=== PATIENT | female | born 1975 | race Caucasian/White ===

== ENCOUNTER 2018-02-26 11:07 | Inpatient (IN) | payer OTHER, SELFPAY ==
[2018-02-24 15:09] LABS: Hematocrit 34.3 % (37-47); Hemoglobin 10.5 g/dl (12.0-15.0); Mean Corp Hgb Conc 30.6 g/gl (32-36); Mean Corpuscular Hgb 22.4 pg (27.0-32.0); Mean Corpuscular Volume 73.1 fL (81-99); Mean Platelet Vol. 9.1 fl (6.2-12.0); Platelet Count 258 K/mm3 (150-450); RBC Distribution Width CV 16.4 % (11.6-14.6); RBC Distribution Width SD 44.1 fl (35.1-43.9); Red Blood Count 4.69 M/mm3 (4.2-5.4); White Blood Count 4.9 K/mm3 (4.4-11.0)
[2018-02-24 15:11] LABS: Scan Indicated on CBC? Y/N YES- FLAGS NOTED
[2018-02-26] VITALS (11 sets, daily range): BP systolic 118–141; BP diastolic 65–91; PULSE 60–78; RESP 16–18; TEMP 36.2–37.2; O2SAT 92–100; BMI 37.3
--- NOTE | 2018-02-26 | HYST_PTH ---
PATIENT: MANISH CRESPO LOC: MS2 U#:[id number] AGE/SX: 43/F ROOM: MS217 RE02/26/[address]: Dr. Priscila Patrick MD : [id number] BED: 1 DIS: 02/28/2018 SPEC #: [id number] RECD: 02/26/18 15:19 STATUS: HUBERT REBritton #: [id number] JANNY: 02/26/18 00:[address]: Priscila Patrick DEPT: SURGICAL PATHOLOGY RECD BY: Hayes Garcia ENTERED: 02/27/18 08:54 SP TYPE: HYSTERECT OTHR DR: MD Dr. Flavio Burk MD Tissues: Uterus, NOS Procedures: Surgery Specimen Level V HEADER OPERATION: Total abdominal hysterectomy PRE-OP DIAGNOSIS: Menorrhagia, uterine fibroids TISSUE SUBMITTED: Uterus MICROSCOPIC DIAGNOSIS Uterus, total abdominal hysterectomy: Cervix ? chronic cystic cervicitis and squamous metaplasia. See comment. Endometrium ? proliferative endometrium. Myometrium ? leiomyomas (3.2 cm in greatest dimension). SJ:rg 02/28/18 COMMENT A section of cervix also shows a lymphoid aggregate, favor benign. MICROSCOPIC DESCRIPTION Slides are reviewed. GROSS DESCRIPTION Received in fixative is one container labeled with the patient's name and designated uterus. The specimen consists of a uterus received in four fragments ranging in size from 2.5 cm to 8.5 cm and in aggregate weighing 215.6 gm. The detached cervix fragment measures 4.5 x 3.5 cm and is grossly unremarkable. The presumed endocervical canal measures 3.5 cm in length and is grossly unremarkable. The triangular endometrial cavity measures 4 x 4 cm. The velvety, light pink-davila endometrium measures up to 0.2 cm in thickness. The myometrium is distorted by multiple spherical rubbery nodules ranging in size from 0.8 to 3.2 cm in greatest dimension. The nodules are intramural and subserosal in location. The largest of these nodules are free in the container. [facility] sections are submitted as follows: 1 & 2 - cervix, 3-6 ? endometrium and adjacent myometrium, 7 ? largest myometrial nodule, 8 ? smaller myometrial nodules. / AM:caio 02/27/18 TC:1 CPT: 00046
[2018-02-26 11:34] LABS: Internal QC Validated? YES +Cl - CLEAR BKGD; Pregnancy, Urine Negative Negative
--- NOTE | 2018-02-26 15:22 | OP.PCM_ITS ---
Operative Report Date of Procedure: 02/26/18 PROCEDURE: Total abdominal hysterectomy Adhesiolysis Preoperative diagnosis: Excessive bleeding in premenopause, menorrhagia Chronic blood loss anemia Uterine leiomyomata Dense pelvic adhesions Postop diagnosis: Excessive bleeding in premenopause, menorrhagia Chronic blood loss anemia Uterine leiomyomata Dense pelvic adhesions Anesthesia: General anesthesia, Angelica Espinoza CRNA Surgeon: Priscila Patrick MD Supplier Quality Engineering Manager: DONALD Roa EBL 500 cc Complications: none Drains: Love draining clear yellow appearing urine 400 cc for case Fluids: replacement LR Findings: Dense adhesions noted within the layers of the anterior abdominal wall. There was a normal appearing uterus with dense adhesions of the posterior surface of the uterus to the posterior pelvis. The anterior uterus was adherent to the bladder. A serosal fibroid was noted at the anterior lower uterine segment. A simple cyst was noted at L ovary and drained at time of surgery, during adhesiolysis. The fallopian tubes bilaterally were thickened appearing, and adherent to bowel, omentum and were left in place. PATH: Uterus, and cervix. Sent as morcellated specimen. Narrative account: After the risks, benefits and alternatives of the procedure were reviewed with the patient, informed consent was obtained. The patient was taken to the Operating room with an IV running, and placed in dorsal supine position on the operating table. She was given general anesthesia and once asleep, briefly frog-legged for Love catheter placement and vaginal vault prep. She was then repositioned to dorsal supine position with a pillow under the knees and prepped and draped in the usual sterile fashion. A Pfannenstiel skin incision was created using the knife at the prior skin incision scar). The incision was carried down to the rectus fascia using the knife and Bovie cautery. The fascia was nicked in the midline. The fascial incision was extended bilaterally using curved Jones scissors. The superior aspect of the fascial incision was grasped with Valerie clamps and tented up and the underlying rectus abdominal muscles were dissected free. In a similar manner, the inferior aspect of the facial incision was grasped with Valerie clamps tented up and the underlying rectus abdominal muscles were dissected free. The rectus abdominis muscles were in the midline and the peritoneum was identified and entered by blunt dissection high in the incision. The peritoneal incision was extended superiorly and inferiorly with Metzenbaum scissors. The peritoneum and rectus abdominis muscles were stretched laterally. The Nassau retractor with medium side blades, bladder retractor and superior arm retractor were then inserted. The bowel was tucked back out of the field with moistened laparotomy sponges. The exposed portion of the uterine fundus was grasped with a single toothed tenaculum to allow manipulation of the uterus while adhesiolysis was initiated. Using the operators fingertips and sharp dissection the posterior surface of the uterus was dissected free of dense adhesions. The round ligaments were grasped, suture ligated and then divided by Bovie cautery. The adhesions between the anterior surface of the uterus and the bladder were then taken down by blunt and sharp dissection and the bladder was dissected down off of the cervix with a sponge stick. The L ovary was drained of clear fluid during adhesiolysis. The operators fingertips, blunt and sharp dissection were used to free the fallopian tube and ovary. A curved Esteban clamp was then used to grasp the left superior pedicle. This was divided, suture ligated and free tied with 1 Vicryl and tagged for later identification. Excellent hemostasis was noted. In a similar manner the R superior pedicle was grasped, divided, suture ligated and tagged for later identification. Sequential pedicles were then taken along the broad ligament at each side of the uterus, alternating between the right and the left sides to maintain hemostasis. Each pedicle along the broad ligament was sequentially grasped by curved or straight Esteban clamps, divided and suture ligated. Adequate hemostasis was noted as each pedicle was secured. The uterine arteries were clamped bilaterally and divided and suture ligated. At this point, for better visualization for continued dissection the uterine fundus and upper portion of the cervix were sequentially amputated using a knife with a malleable retractor placed at the posterior pelvis to protect the bowel during this step. The cervical stump was secured with a single toothed tenaculum. Pedicles were then taken at each side of the cervix while maintaining close approximation to the cervix. Each pedicle was secured, divided and suture ligated. The uterosacral ligaments were divided and tagged. Curved Z clamps were then placed inferior to the cervix at the upper vagina from each side. The cervix was then amputated with Dallas scissors. The cervix was set aside along with the rest of the specimen. Esteban stitches were placed at each of the vaginal angles. The remainder of the vaginal cuff was closed with a series of figure of eight and interrupted stitches of 1 Vicryl. Excellent hemostasis was noted. The surgical field was inspected. The ovaries and fallopian tubes were adherent to pelvic side wall and to bowel and omentum. Given the presence of the dense adhesions, the fallopian tubes were left in place to err on the side of safety. The pelvic and abdomen with copiously irrigated. and the field again inspected. Ruperto was sprayed over the vaginal cuff and superior pedicles for continued hemostasis. Excellent hemostasis was noted. The Nassau retraction and the moistened laparotomy sponges were removed The bowel and omentum were returned to their anatomic positions in the lower abdomen. Of note: evidence of prior bowel resection / repair was noted . The rectus abdominis muscles and peritoneum were reapproximated in the midline with vertical mattress stitches and figure of 8 stitches of 1 Vicryl. Ruperto was dusted over the anterior rectus bodies. The fascia was then closed with a running nonlocked stitch of Stratofix. Bovie cautery was used for hemostasis at the subcutaneous fatty tissue layer. 3-0 Vicryl was then used to reapproximate this layer and close space. The skin was then reapproximated with a subcuticular stitch of 4- 0 Monocryl in a running fashion. The skin incision was then cleansed and a sterile dressing of Cavilon, steristrips, and a Mepilex were applied. Sponge, instrument and needle counts were correct times two. The patient was then awakened from general anesthesia and transferred to the recovery room in stable condition after tolerating the procedure well. Excellent urine output was noted. Medications given preop and intraop included: Cefotetan 2 gm IV online marketing strategist to the OR and Toradol 30 mg IV times one. For a complete listing of medications given preop and intraop, please see the anesthesia record.
[2018-02-26] MEDS: Ketorolac 30 MG/ML Syringe IV ×2 (17:38→23:06)
[2018-02-26] MEDS: HYDROmorphone 1 MG/ML Syringe IV ×3 (17:38→23:45)
[2018-02-26] MEDS: Ondansetron 4 MG/2 ML Vial IV (18:20)
[2018-02-26] MEDS: Lactated Ringers 1,000 ML 125 ML IV (18:20)
[2018-02-26] MEDS: proMETHazine 25 MG/ML Syringe 12.5 MG IM (20:58)
[2018-02-26] MEDS: Labetalol 200 MG Tablet PO (21:25)
[2018-02-26] MEDS: Docusate Sodium 100 MG Capsule 200 MG PO (21:25)
[2018-02-26] MEDS: Acetaminophen 500 MG Tablet 1000 MG PO (21:26)
--- NOTE | 2018-02-26 23:29 | NURSING ---
2300 patient stool dangled legs and stood at bedside. A little dizzy and nauseated but tolerated well. This nurse assisted patient back to bed.
[2018-02-27] MEDS: Lactated Ringers 500 ML 425 ML IV (00:18)
[2018-02-27] MEDS: Lactated Ringers 1,000 ML 125 ML IV ×2 (02:08→05:34)
[2018-02-27 02:45] VITALS: BP 123/73; PULSE 77; RESP 16; TEMP 36.8; O2SAT 98
[2018-02-27] MEDS: Acetaminophen 500 MG Tablet 1000 MG PO ×3 (05:15→22:45)
[2018-02-27] MEDS: Ketorolac 30 MG/ML Syringe IV (05:15)
[2018-02-27 06:51] LABS: Hematocrit 28.6 % (37-47); Hemoglobin 8.6 g/dl (12.0-15.0); Mean Corp Hgb Conc 30.1 g/gl (32-36); Mean Corpuscular Hgb 22.2 pg (27.0-32.0); Mean Corpuscular Volume 73.9 fL (81-99); Mean Platelet Vol. 9.8 fl (6.2-12.0); Platelet Count 286 K/mm3 (150-450); RBC Distribution Width CV 16.2 % (11.6-14.6); RBC Distribution Width SD 42.6 fl (35.1-43.9); Red Blood Count 3.87 M/mm3 (4.2-5.4); White Blood Count 14.3 K/mm3 (4.4-11.0)
[2018-02-27 06:55] LABS: Scan Indicated on CBC? Y/N YES- FLAGS NOTED
[2018-02-27 07:02] LABS: Anion Gap 7 (5-15); BUN 12 mg/dL (7-18); BUN/Creat Ratio 12.6 RATIO (10-20); Chloride 106 mmol/L (98-107); Creatinine, Serum 0.95 mg/dL (0.55-1.02); EST Glomerular Filtration Rate 69 mL/min (>60); Est Glom Filt Rate - Afr Amer 83 mL/min (>60); Estimated Creatinine Clearance 61.64 ml/min; Glucose 109 mg/dL (74-106); Potassium 4.4 mmol/L (3.5-5.1); Sodium Level 138 mmol/L (136-145)
[2018-02-27 07:12] VITALS: O2SAT 96
[2018-02-27 07:47] LABS: Differential Comment SCANNED
--- NOTE | 2018-02-27 08:02 | PCM.PROGNOTE ---
Subjective: POD#1 KATHERINE, lysis of adhesions Doing well. Tolerating PO well- regular breakfast. Tolerated dangling at side of bed last pm. . Urine output picked up overnight and Love removed this am. Pain control adequate No concerns voiced. States some minimal vaginal bleeding and wonders if OK and where it's coming from. States not heavy at all, just noted some. - Physical Exam General: Alert, Oriented x3, Cooperative, No apparent distress HEENT: Atraumatic Neck: Supple Abdomen: Soft - Minimally tender c/w postop status Skin: Incision - Mepilex CDI. No shadow drainage noted. Neurological: Cranial nerves II-XII grossly intact Psych/Mental Status: Normal Affect Vital Signs Temp Pulse Resp BP Pulse Ox 98.3 F 77 16 123/73 H 98 02/27/18 02:45 02/27/18 02:45 02/27/18 02:45 02/27/18 02:45 02/27/18 02:45 Oxygen Flow Rate (L/min) 2 Oxygen Delivery Method Nasal Cannula Weight: 92.6 kg Body Mass Index (BMI) 37.3 Intake and Output for Last 24 Hours 18 02/26/18 02/27/18 23:59 23:59 23:59 Intake Total 3696 / 3696 1627 / 1627 Output Total 750 / 750 1325 / 1325 Balance 2946 / 2946 302 / 302 Laboratory Tests Past 24 Hrs 02/26/18 02/27/18 02/27/18 11:20 06:20 06:20 WBC 14.3 H RBC 3.87 L Hgb 8.6 L Hct 28.6 L MCV 73.9 L MCH 22.2 L MCHC 30.1 L RDW 16.2 H RDW Differential 42.6 Plt Count 286 MPV 9.8 Differential Comment SCANNED Sodium 138 Potassium 4.4 Chloride 106 Carbon Dioxide 25.0 Anion Gap 7 BUN 12 Creatinine 0.95 Estim Creat Clear Calc 61.64 Est GFR (MDRD) Af Amer 83 Est GFR (MDRD) Non-Af 69 BUN/Creatinine Ratio 12.6 Glucose 109 H Calcium 8.0 L Urine Test Negative Medical Necessity - Tobacco Use Smoking Status: Never smoker Assessment/Plan POD#1 KATHERINE, Fibroid uterus, Menorrhagia/excessive bleeding in premenopause. Stable postop. AVSS CBC as anticipated with chronic blood loss prior to surgery and now superimposed acute blood loss at surgery. Inc diet and activity as tolerated. S/L IV for continued Toradol today. May shower. Begin po meds. Continue care.
[2018-02-27] MEDS: Docusate Sodium 100 MG Capsule 200 MG PO ×2 (08:07→22:45)
--- NOTE | 2018-02-27 08:07 | PCM.DC.AHY ---
Discharge Diet: No Restrictions Discharge Activity: May not drive while taking narcotic pain medications., May Shower, May Take a Tub Bath Return to work on:: 04/14/18 May resume sexual activity in: 4-6 weeks Change Dressing in (Days):: 14 - Remove Mepilex after 3-4 d, OK to leave steristrips in place or remove also. Remove Dressing in (days):: 14 Cleanse incision/area with: Soap & Water, Normal Saline Allergies/Adverse Reactions: Allergies No Known Allergies Allergy (Verified 02/19/18 11:12) Medications to take at Discharge Labetalol [Trandate (Beta Barby)] 200 mg PO BID 08/24/16 Acetaminophen [Tylenol] 1,000 mg PO Q8 tablet 02/27/18 Docusate Sodium [Colace] 200 mg PO BID #30 cap 02/27/18 Ferrous Sulfate 325 mg PO DAILY@0800 #30 tab 02/27/18 Naproxen [Naprosyn] 250 - 500 mg PO Q8H PRN PRN #30 tab 02/27/18 Oxycodone [Oxyir] 5 - 10 mg PO Q4H PRN PRN 7 Days #28 tablet 02/27/18 Polyethylene Glycol 3350 [Miralax] 17 gm PO DAILY #30 packet 02/27/18 The following prescriptions were given: Oxycodone [Oxyir] 5 - 10 mg PO Q4H PRN PRN 7 Days #28 tablet PRN Reason: Severe Pain (-07/30) Naproxen [Naprosyn] 250 - 500 mg PO Q8H PRN PRN #30 tab PRN Reason: Mild Pain Ferrous Sulfate 325 mg PO DAILY@0800 #30 tab Polyethylene Glycol 3350 [Miralax] 17 gm PO DAILY #30 packet Docusate Sodium [Colace] 200 mg PO BID #30 cap Primary Care Physician: Flavio Hudson MD [Primary Care Provider] - Please Follow Up With: Priscila Patrick MD - [phone] When: in 2 weeks, please call to make an appointment. Proposed Discharge Date: 02/28/18
[2018-02-27] MEDS: oxyCODONE 5 MG Tablet PO ×3 (08:19→20:01)
[2018-02-27 08:26] VITALS: RESP 16
[2018-02-27 10:00] VITALS: BP 129/76; PULSE 86; RESP 16; TEMP 37.4; O2SAT 98
[2018-02-27] MEDS: Polyethylene Glycol 3350 17 GM PACKET PO (10:15)
[2018-02-27] MEDS: Labetalol 200 MG Tablet PO ×2 (10:16→22:45)
[2018-02-27] MEDS: Enoxaparin 40 MG/0.4 ML Syringe SC (11:45)
[2018-02-27] MEDS: Naproxen 250 MG Tablet PO ×2 (11:45→20:02)
[2018-02-27 14:32] VITALS: BP 113/59; PULSE 83; RESP 16; TEMP 36.7; O2SAT 96
[2018-02-27 20:00] VITALS: BP 109/62; PULSE 96; RESP 16; TEMP 36.8; O2SAT 99
[2018-02-28] MEDS: oxyCODONE 5 MG Tablet PO (00:27)
[2018-02-28] MEDS: Acetaminophen 500 MG Tablet 1000 MG PO (05:45)
[2018-02-28] MEDS: Naproxen 250 MG Tablet PO (05:45)
[2018-02-28 05:50] VITALS: BP 145/59; PULSE 82; RESP 16; TEMP 36.6; O2SAT 95
--- NOTE | 2018-02-28 07:22 | PCM.PROGNOTE ---
Subjective: POD#2 KATHERINE, lysis of adhesions. Doing well. Pain control adequate. No concerns voiced. Ready to go home today. - Physical Exam General: Alert, Oriented x3, Cooperative, No apparent distress HEENT: Atraumatic Neck: Supple Abdomen: Soft - minimally tender c/w postop status. Skin: Incision - Mepilex CDI. No shadow drainage. no evidence of skin rxn to dressing. Neurological: Cranial nerves II-XII grossly intact Psych/Mental Status: Normal Affect Vital Signs Temp Pulse Resp BP Pulse Ox 98 F 82 16 145/59 H 95 02/28/18 05:50 02/28/18 05:50 02/28/18 05:50 02/28/18 05:50 02/28/18 05:50 Oxygen Flow Rate (L/min) 2 Oxygen Delivery Method Room Air Weight: 92.6 kg Body Mass Index (BMI) 37.3 Intake and Output for Last 24 Hours 02/26/18 02/27/18 02/28/18 23:59 23:59 23:59 Intake Total 3696 / 3696 1627 / 1627 700 / 700 Output Total 750 / 750 1325 / 1325 Balance 2946 / 2946 302 / 302 700 / 700 Laboratory Tests Past 24 Hrs 02/27/18 06:20 Differential Comment SCANNED Medical Necessity - Tobacco Use Smoking Status: Never smoker Assessment/Plan POD#2 KATHERINE, Fibroid uterus, Menorrhagia/excessive bleeding in premenopause. Stable postop. D/C home today RTO in 2 wk for postop check,
[2018-02-28 07:46] VITALS: O2SAT 95
[2018-02-28 09:05] VITALS: BP 125/71; PULSE 84; RESP 16; TEMP 36.7; O2SAT 98
--- NOTE | 2018-03-03 07:38 | PCM.DC.SUM ---
Discharge Date and Diagnosis Date of Admission: 02/26/18 Date of Discharge: 02/28/18 - S/P KATHERINE, lysis adhesions Hospital Course and Treatment Operations: hysterectomy - KATHERINE, lysis of adhesions Summary of Care Provided: The patient is a 43 year old female with known uterine fibroids, chronic blood loss anemia and menorrhagia. h/o C section deliveries and myomectomies, with known pelvic adhesive disease. Presents for KATHERINE and lysis of adhesions. Procedure performed on 02/26/18. Uncomplicated. Postop course complicated by oliguria, but with good response to fluid bolus. Remainer of postop recovery course was uneventful. Discharged home on POD#2 to follow in office in two weeks as planned for postop appointment. Discharge Diet: No Restrictions Discharge Activity: May not drive while taking narcotic pain medications., May Shower, May Take a Tub Bath Return to work on:: 04/14/18 May resume sexual activity in: 4-6 weeks Change Dressing in (Days):: 14 - Remove Mepilex after 3-4 d, OK to leave steristrips in place or remove also. Remove Dressing in (days):: 14 Cleanse incision/area with: Soap & Water, Normal Saline Home Medications: Medications to take at Discharge Labetalol [Trandate (Beta Barby)] 200 mg PO BID 08/24/16 Acetaminophen [Tylenol] 1,000 mg PO Q8 tablet 02/27/18 Docusate Sodium [Colace] 200 mg PO BID #30 cap 02/27/18 Ferrous Sulfate 325 mg PO DAILY@0800 #30 tab 02/27/18 Naproxen [Naprosyn] 250 - 500 mg PO Q8H PRN PRN #30 tab 02/27/18 Oxycodone [Oxyir] 5 - 10 mg PO Q4H PRN PRN 7 Days #28 tablet 02/27/18 Polyethylene Glycol 3350 [Miralax] 17 gm PO DAILY #30 packet 02/27/18 Following Prescrptions Were Given to Patient: Oxycodone [Oxyir] 5 - 10 mg PO Q4H PRN PRN 7 Days #28 tablet PRN Reason: Severe Pain (6-07/30) Naproxen [Naprosyn] 250 - 500 mg PO Q8H PRN PRN #30 tab PRN Reason: Mild Pain Ferrous Sulfate 325 mg PO DAILY@0800 #30 tab Polyethylene Glycol 3350 [Miralax] 17 gm PO DAILY #30 packet Docusate Sodium [Colace] 200 mg PO BID #30 cap Primary Care Physician: Flavio Hudson MD [Primary Care Provider] - Please Follow Up With: Priscila Patrick MD - [phone] When: in 2 weeks, please call to make an appointment. Medical Necessity - Tobacco Use Smoking Status: Never smoker Meaningful Use Info Meaningful Use Diagnoses (Choose all that apply): None applicable
== END 2018-02-28 10:43 | disposition home or self-care (01) | DRG 743 ==
PROVIDERS: Admitting Provider Obstetrics & Gynecology; Family Provider Family Medicine; PCP Family Medicine; Visit Provider Obstetrics & Gynecology
PROC: 0UT90ZZ Resection of Uterus, Open Approach (ICD-10-PCS; principal; 2018-02-26 12:10)
DX: N92.4 Excessive bleeding in the premenopausal period (principal); N73.6 Female pelvic peritoneal adhesions (postinfective); D50.0 Iron deficiency anemia secondary to blood loss (chronic); D25.9 Leiomyoma of uterus, unspecified; N83.202 Unspecified ovarian cyst, left side
CPT/HCPCS: 36415; 80048; 81025; 85027; 86850; 86900; 88307; J7120; J2405

== ENCOUNTER → 2018-03-12 11:48 | Outpatient (CLI) | payer OTHER, SELFPAY | PROVIDERS: Family Provider Family Medicine; PCP Family Medicine; Visit Provider Obstetrics & Gynecology | DX: R30.0 Dysuria (principal) | CPT/HCPCS: 87086; 87088 ==

== ENCOUNTER → 2019-05-02 08:54 | Outpatient (CLI) | payer OTHER, SELFPAY ==
--- NOTE | 2019-05-02 08:58 | BI_ITS ---
MAMMOGRAPHY - BILATERAL SCREENING REASON FOR EXAM: Female, 44 years old. Routine annual screening examination. PERTINENT HISTORY: Mother with breast cancer. TECHNIQUE: Digital bilateral breast bereket (3D mammographic acquisition) in the CC and MLO projections. 2-D mediolateral oblique (MLO) and craniocaudad (CC) views of both breasts were obtained. CAD: Full Field Digital Mammography with Computer Added Detection was performed. COMPARISON: Comparison is made with prior study dated November 12, 2017 and February 26, 2014. FINDINGS: Breast Composition: The breasts are heterogeneously dense, which may obscure small masses. There are no dominant masses or suspicious calcifications. No other significant abnormalities are identified. There has been no significant change since the prior study. BI/SCREEN MAMM (CAD) W/BEREKET BILAT IMPRESSION: Stable bilateral screening mammogram. Yearly follow-up mammogram recommended. (A) ASSESSMENT CATEGORY: BIRADS Category 1: Negative. A letter regarding these results will be sent to the patient by the facility within 30 days. Approximately 10% of breast cancers are not detected by mammography. A normal mammogram should not delay biopsy of a clinically suspicious abnormality. [id number] Electronically Signed: Fred Cornelius, at 8:46 EDT , Service support ,
== END ==
PROVIDERS: Family Provider Family Medicine; PCP Family Medicine; Referring Provider Obstetrics & Gynecology; Visit Provider Obstetrics & Gynecology
DX: Z12.31 Encounter for screening mammogram for malignant neoplasm of breast (principal)
CPT/HCPCS: 77063; 77067

== ENCOUNTER → 2019-09-28 12:15 | Outpatient (CLI) | payer OTHER, SELFPAY ==
[2018-02-26 16:44] VITALS: BMI 37.3
[2019-09-28 14:12] LABS: Anion Gap 6 (5-15); BUN 12 mg/dL (7-18); BUN/Creat Ratio 12.7 RATIO (10-20); Calcium,Total 9.2 mg/dL (8.5-10.1); Chloride 107 mmol/L (98-107); Cholesterol 186 mg/dL (200); Creatinine, Serum 0.95 mg/dL (0.55-1.02); EST Glomerular Filtration Rate 69 mL/min (>60); Est Glom Filt Rate - Afr Amer 83 mL/min (>60); Glucose 84 mg/dL (74-106); High Density Lipoprotein 50 mg/dL; Sodium Level 139 mmol/L (136-145); Triglycerides 165 mg/dL; Very Low Density Lipoprotein 33 mg/dL (5-40)
== END ==
PROVIDERS: Nurse Practitioner Family; Family Provider Family Medicine; PCP Family Medicine; Visit Provider Family Medicine
DX: Z00.00 Encounter for general adult medical examination without abnormal findings (principal); V70.0XXA Driver of bus injured in collision with pedestrian or animal in nontraffic accident, initial encounter
CPT/HCPCS: 36415; 80048; 80061; 83036

== ENCOUNTER → 2020-05-03 12:50 | Outpatient (CLI) | payer OTHER, SELFPAY ==
--- NOTE | 2020-05-03 12:52 | BI_ITS ---
MAMMOGRAPHY - BILATERAL SCREENING REASON FOR EXAM: Female, 45 years old. Routine annual screening examination. PERTINENT HISTORY: Mother with breast cancer. TECHNIQUE: Digital bilateral breast bereket (3D mammographic acquisition) in the CC and MLO projections. 2-D mediolateral oblique (MLO) and craniocaudad (CC) views of both breasts were obtained. CAD: Full Field Digital Mammography with Computer Added Detection was performed. COMPARISON: Comparison is made with prior examination dated May 02, 2019 and November 12, 2017. FINDINGS: Breast Composition: The breasts are heterogeneously dense, which may obscure small masses. There are no dominant masses or suspicious calcifications. Stable small benign appearing bilateral axillary lymph nodes. No other significant abnormalities are identified. There has been no significant change since the prior study. BI/SCREEN MAMM (CAD) W/BEREKET BILAT IMPRESSION: Stable bilateral screening mammogram. Yearly follow-up mammogram recommended. (A) ASSESSMENT CATEGORY: BIRADS Category 2: Benign. A letter regarding these results will be sent to the patient by the facility within 30 days. Approximately 10% of breast cancers are not detected by mammography. A normal mammogram should not delay biopsy of a clinically suspicious abnormality. [id number] Electronically Signed: Fred Cornelius, at 13:46 EDT , Service support ,
== END ==
PROVIDERS: PCP Family Medicine; Referring Provider Obstetrics & Gynecology; Visit Provider Obstetrics & Gynecology
DX: Z12.31 Encounter for screening mammogram for malignant neoplasm of breast (principal)
CPT/HCPCS: 77063; 77067

== ENCOUNTER → 2020-06-28 09:13 | Outpatient (CLI) | payer OTHER, SELFPAY ==
[2018-02-26 16:44] VITALS: BMI 37.3
[2020-06-28 10:27] LABS: Anion Gap 4 (5-15); BUN 20 mg/dL (7-18); BUN/Creat Ratio 20.6 RATIO (10-20); Chloride 107 mmol/L (98-107); Creatinine, Serum 0.97 mg/dL (0.55-1.02); EST Glomerular Filtration Rate 67 mL/min (>60); Est Glom Filt Rate - Afr Amer 80 mL/min (>60); Glucose 88 mg/dL (74-106); Potassium 4.6 mmol/L (3.5-5.1); Sodium Level 139 mmol/L (136-145)
== END ==
PROVIDERS: PCP Family Medicine; Referring Provider Family Medicine; Visit Provider Family Medicine
DX: I10 Essential (primary) hypertension (principal)
CPT/HCPCS: 36415; 80048

== ENCOUNTER → 2021-01-30 09:37 | Outpatient (CLI) | payer OTHER, SELFPAY ==
[2018-02-26 16:44] VITALS: BMI 37.3
[2021-01-30 10:06] LABS: Hematocrit 44.5 % (37-47); Hemoglobin 13.8 g/dL (12.0-15.0)
[2021-01-30 10:31] LABS: Microalbumin,Random Urine 11.7 mg/L (NO RANGE EST.)
[2021-01-30 17:12] LABS: ALB/GLOB Ratio 0.9 RATIO (0.9-2.4); AST(SGOT) 17 U/L (15-37); Alanine Aminotransfer ALT/SGPT 26 U/L (13-56); Albumin, Serum 3.7 g/dL (3.2-5.0); Alkaline Phosphatase 69 U/L (45-117); Anion Gap 3 (5-15); BUN 12 mg/dL (7-18); Calcium,Total 9.4 mg/dL (8.5-10.1); Chloride 106 mmol/L (98-107); Cholesterol 239 mg/dL (200); Creatinine, Serum 0.92 mg/dL (0.55-1.02); EST Glomerular Filtration Rate 70 mL/min (>60); Est Glom Filt Rate - Afr Amer 85 mL/min (>60); Ferritin 90 ng/mL (8-252); Follicle Stimulating Hormone 5.2 mIU/mL; Glucose 91 mg/dL (74-106); High Density Lipoprotein 54 mg/dL; Luteinizing Hormone 1.5 mIU/mL; Potassium 3.7 mmol/L (3.5-5.1); Protein, Total 7.7 g/dL (6.4-8.2); Sodium Level 139 mmol/L (136-145); Triglycerides 141 mg/dL; Very Low Density Lipoprotein 28 mg/dL (5-40)
[2021-01-31 09:13] LABS: Hepatitis C Antibody Non-Reactive (Nonreactive)
== END ==
PROVIDERS: PCP Family Medicine; Visit Provider Family Medicine
DX: I10 Essential (primary) hypertension (principal); D50.9 Iron deficiency anemia, unspecified; N95.1 Menopausal and female climacteric states; Z11.59 Encounter for screening for other viral diseases
CPT/HCPCS: 36415; 80053; 80061; 82043; 82728; 83001; 83002; 85014; 85018; 86803

== ENCOUNTER → 2021-05-05 06:58 | Outpatient (CLI) | payer OTHER, SELFPAY ==
--- NOTE | 2021-05-05 07:00 | BI_ITS ---
MAMMOGRAPHY - BILATERAL SCREENING REASON FOR EXAM: Female, 46 years old. Routine annual screening examination. PERTINENT HISTORY: Mother with breast cancer. TECHNIQUE: Digital bilateral breast bereket (3D mammographic acquisition) in the CC and MLO projections. 2-D mediolateral oblique (MLO) and craniocaudad (CC) views of both breasts were obtained. CAD: Full Field Digital Mammography with Computer Added Detection was performed. COMPARISON: Comparison is made with prior study dated 05/03/2020 and 05/02/2019. FINDINGS: Breast Composition: The breasts are heterogeneously dense, which may obscure small masses. There are no dominant masses or suspicious calcifications. Stable small benign-appearing bilateral axillary lymph nodes. No other significant abnormalities are identified. There has been no significant change since the prior study. BI/SCRN MAMM (CAD)W/BEREKET BILAT IMPRESSION: Stable bilateral screening mammogram. Yearly follow-up mammogram recommended. (A) ASSESSMENT CATEGORY: BIRADS Category 2: Benign. A letter regarding these results will be sent to the patient by the facility within 30 days. Approximately 10% of breast cancers are not detected by mammography. A normal mammogram should not delay biopsy of a clinically suspicious abnormality. [id number] Electronically Signed: Fred Cornelius MD at 8:17 EDT , Service support ,
== END ==
PROVIDERS: PCP Family Medicine; Referring Provider Student in an Organized Health Care Education/Training Program; Visit Provider Student in an Organized Health Care Education/Training Program
DX: Z12.31 Encounter for screening mammogram for malignant neoplasm of breast (principal)
CPT/HCPCS: 77063; 77067

== ENCOUNTER → 2022-02-19 | Outpatient (CLI) | payer OTHER, SELFPAY ==
[2022-02-19 12:45] LABS: Microalbumin,Random Urine 22.1 mg/L (NO RANGE EST.); Microalbumin:Creatinine Ratio 10.3 mg/g CRE (<30 mg/g CRE)
[2022-02-19 13:01] LABS: Anion Gap 6 (5-15); BUN 16 mg/dL (7-18); BUN/Creat Ratio 16.9 RATIO (10-20); Calcium,Total 9.5 mg/dL (8.5-10.1); Chloride 107 mmol/L (98-107); Cholesterol 253 mg/dL (200); Creatinine, Serum 0.95 mg/dL (0.55-1.02); EST Glomerular Filtration Rate 68 mL/min (>60); Est Glom Filt Rate - Afr Amer 82 mL/min (>60); Glucose 93 mg/dL (74-106); High Density Lipoprotein 49 mg/dL; Potassium 4.5 mmol/L (3.5-5.1); Sodium Level 138 mmol/L (136-145); Triglycerides 162 mg/dL; Very Low Density Lipoprotein 32 mg/dL (5-40)
== END | disposition home or self-care (01) ==
LOC: MFPLAB 09:46
PROVIDERS: PCP Family Medicine; Visit Provider Family Medicine
DX: I10 Essential (primary) hypertension (principal)
CPT/HCPCS: 36415; 80048; 80061; 82043; 82570

== ENCOUNTER → 2022-05-07 | Outpatient (CLI) | payer OTHER, SELFPAY ==
--- NOTE | 2022-05-07 10:40 | BI_ITS ---
MAMMOGRAPHY - BILATERAL SCREENING REASON FOR EXAM: Female, 47 years old. Routine annual screening examination. PERTINENT HISTORY: Mother with breast cancer. TECHNIQUE: Digital bilateral breast bereket (3D mammographic acquisition) in the CC and MLO projections. 2-D mediolateral oblique (MLO) and craniocaudad (CC) views of both breasts were obtained. CAD: Full Field Digital Mammography with Computer Added Detection was performed. COMPARISON: Comparison is made with prior study dated 05/05/2021 and 05/03/2020. FINDINGS: Breast Composition: The breasts are heterogeneously dense, which may obscure small masses. There are no dominant masses or suspicious calcifications. Stable small benign appearing bilateral axillary lymph nodes. No other significant abnormalities are identified. There has been no significant change since the prior study. BI/SCRN MAMM (CAD)W/BEREKET BILAT IMPRESSION: Stable bilateral screening mammogram. Yearly follow-up mammogram recommended. (A) ASSESSMENT CATEGORY: BIRADS Category 2: Benign. A letter regarding these results will be sent to the patient by the facility within 30 days. Approximately 10% of breast cancers are not detected by mammography. A normal mammogram should not delay biopsy of a clinically suspicious abnormality. [id number] Electronically Signed: Fred Cornelius MD at 12:11 EDT ,
== END | disposition home or self-care (01) ==
LOC: OPBI 10:38
PROVIDERS: PCP Family Medicine; Visit Provider Student in an Organized Health Care Education/Training Program
DX: Z12.31 Encounter for screening mammogram for malignant neoplasm of breast (principal)
CPT/HCPCS: 77063; 77067

== ENCOUNTER → 2022-09-10 | Outpatient (CLI) | payer OTHER, SELFPAY ==
[2022-09-10 15:28] LABS: AST(SGOT) 18 U/L (15-37); Alanine Aminotransfer ALT/SGPT 36 U/L (13-56); Albumin, Serum 3.8 g/dL (3.2-5.0); Alkaline Phosphatase 68 U/L (45-117); Anion Gap 8 (5-15); BUN 16 mg/dL (7-18); CRP, High Sensitivity Cardiac 5.02 mg/L; Calcium,Total 9.3 mg/dL (8.5-10.1); Chloride 104 mmol/L (98-107); Cholesterol 237 mg/dL (200); Creatinine, Serum 0.84 mg/dL (0.55-1.02); EST Glomerular Filtration Rate 78 mL/min (>60); Est Glom Filt Rate - Afr Amer 94 mL/min (>60); Globulin 3.7 g/dL (2.2-4.2); Glucose 80 mg/dL (74-106); High Density Lipoprotein 52 mg/dL; Potassium 4.1 mmol/L (3.5-5.1); Protein, Total 7.5 g/dL (6.4-8.2); Sodium Level 138 mmol/L (136-145); Triglycerides 181 mg/dL; Very Low Density Lipoprotein 36 mg/dL (5-40)
== END | disposition home or self-care (01) ==
LOC: MFPLAB 11:16
PROVIDERS: PCP Family Medicine; Visit Provider Family Medicine
DX: E78.00 Pure hypercholesterolemia, unspecified (principal); I10 Essential (primary) hypertension
CPT/HCPCS: 36415; 80053; 80061; 86141

== ENCOUNTER → 2023-01-08 | Outpatient (CLI) | payer OTHER, SELFPAY ==
[2023-01-08 12:57] LABS: AST(SGOT) 15 U/L (15-37); Alanine Aminotransfer ALT/SGPT 29 U/L (13-56); Albumin, Serum 3.8 g/dL (3.2-5.0); Alkaline Phosphatase 67 U/L (45-117); Anion Gap 6 (5-15); BUN 19 mg/dL (7-18); BUN/Creat Ratio 18.4 RATIO (10-20); Calcium,Total 9.7 mg/dL (8.5-10.1); Chloride 105 mmol/L (98-107); Creatinine, Serum 1.03 mg/dL (0.55-1.02); EST Glomerular Filtration Rate 61 mL/min (>60); Est Glom Filt Rate - Afr Amer 74 mL/min (>60); Globulin 3.7 g/dL (2.2-4.2); Glucose 103 mg/dL (74-106); Potassium 4.1 mmol/L (3.5-5.1); Protein, Total 7.5 g/dL (6.4-8.2); Sodium Level 139 mmol/L (136-145)
[2023-01-08 13:00] LABS: Color, Urine Yellow (Yellow); Glucose, Dipstick Normal (Normal); Ketone-Dipstick 5 mg/dl (Negative); Leukocyte Esterase-Dipstick 25 /ul (Negative); Nitrite-Dipstick Negative (Negative); Occult Blood-Urine 250 /ul (Negative); Protein-Dipstick 15 mg/dl (Negative); Specific Gravity, Urine 1.025 (1.002-1.030); Urine Bilirubin Dipstick Negative (Negative); Urine Clarity Clear (Clear); Urine Urobilinogen Normal (Normal)
[2023-01-08 13:18] LABS: Bacteria 1+ /hpf (None Seen); Mucous, Urine 2+ /hpf (<or=2+); Red Blood Cells-Urine 10-25 SEEN /hpf (0-5); Squamous Epithelial Cells - UA 5-10 SEEN /hpf (5-10); White Blood Cells 10-25 SEEN /hpf (0-5)
== END | disposition home or self-care (01) ==
LOC: MTLAB 10:16
PROVIDERS: PCP Family Medicine; Referring Provider Family Medicine; Visit Provider Family Medicine
DX: N20.0 Calculus of kidney (principal)
CPT/HCPCS: 36415; 80053; 81001

== ENCOUNTER → 2023-01-15 | Outpatient (CLI) | payer OTHER, SELFPAY ==
--- NOTE | 2023-01-15 07:17 | CT_ITS ---
STUDY: CT ABDOMEN AND PELVIS WITHOUT CONTRAST REASON FOR EXAM: Female, 48 years old. RIGHT FLANK PAIN. One episode of hematuria. RADIATION DOSAGE (If Supplied By Facility): CTDIvol = ( 18.10 ) mGy, DLP = ( 886.34 ) mGycm TECHNIQUE: Transaxial images were obtained from the dome of the diaphragm to the symphysis pubis without oral contrast, and without intravenous contrast. Sagittal and coronal images were reconstructed. Individualized dose optimization techniques were used for this CT. COMPARISON: None. FINDINGS: 2 mm calcified granuloma in the posterior aspect of the right middle lobe. The visualized portions of the heart are within normal limits. There is decreased attenuation of the liver consistent with steatosis. There is a 3.8 cm x 3.5 cm x 3.8 cm focal area of heterogeneous attenuation in the lateral inferior aspect of the left lobe of the liver adjacent to the gallbladder fossa. A repeat CT scan following IV contrast is recommended for further evaluation. Normal gallbladder and extrahepatic biliary system. Normal spleen. Normal pancreas. Normal bilateral adrenal glands. There is a 1.8 cm cyst in the posterior midportion of the right kidney. Mild degree of right hydronephrosis due to a 5.2 mm x 7.6 mm calculus in the proximal portion of the right ureter just distal to the ureteropelvic junction. Left parapelvic cysts. Normal visualized stomach. Normal small intestine. Normal colon. The appendix is visualized and appears normal. Normal abdominal aorta. Normal inferior vena cava. Normal retroperitoneum. Normal urinary bladder. There is absence of the uterus consistent with a prior hysterectomy. Follicles are seen in both ovaries. A dominant follicle is seen in the right ovary measuring 2.3 cm. Normal abdominal wall. Degenerative changes of the sacroiliac joints. Spina bifida occulta at the L5 level. CT/Abdomen/Pelvis without Cont IMPRESSION: 5.2 mm x 7.6 mm calculus in the proximal portion of the right ureter just distal to the ureteropelvic junction causing mild right hydronephrosis. Focal area of heterogeneous attenuation lateral aspect of the left lobe of the liver adjacent to the gallbladder fossa. A repeat CT scan with IV contrast is recommended. Right renal cyst. Left parapelvic cysts. Electronically Signed: Fred Cornelius MD at 8:36 EDT ,
== END | disposition home or self-care (01) ==
LOC: CT 07:16
PROVIDERS: PCP Family Medicine; Visit Provider Family Medicine
DX: N13.2 Hydronephrosis with renal and ureteral calculous obstruction (principal)
CPT/HCPCS: 74176

== ENCOUNTER → 2023-01-21 | Outpatient (CLI) | payer OTHER, SELFPAY ==
--- NOTE | 2023-01-21 09:05 | RAD_ITS ---
STUDY: X-RAY - ABDOMEN/PELVIS REASON FOR EXAM: Female, 48 years old. KUB- history of right-sided URETERAL STONE TECHNIQUE: Two AP supine views of the abdomen and pelvis. COMPARISON: None. FINDINGS: Elevation of the right hemidiaphragm. There is a moderate amount of colonic fecal material. There is evidence of a 5.6 mm calculus in the mid abdomen at the level of the L2-L3 disc space level on the right side. Normal soft tissue structures. Normal visualized osseous structures. RAD/Abdomen Single View IMPRESSION: 5.6 mm calculus is seen in the mid abdomen at the level of the L2-L3 disc space level on the right side. Electronically Signed: Fred Cornelius MD at 13:54 EDT ,
== END | disposition home or self-care (01) ==
LOC: MTRAD 09:03
PROVIDERS: PCP Family Medicine; Referring Provider Urology; Visit Provider Urology
DX: N20.1 Calculus of ureter (principal)
CPT/HCPCS: 74018

== ENCOUNTER 2023-01-29 06:00 | Day surgery (SDC) | payer OTHER, SELFPAY ==
[2023-01-29 06:43] VITALS: BP 137/82; PULSE 60; RESP 16; TEMP 36.3; O2SAT 97; BMI 38.7
[2023-01-29] MEDS: Lactated Ringers 1,000 ML 15 ML IV (06:50)
[2023-01-29] MEDS: Cefazolin 2 GM in 0.9% Normal Saline 100 ML IV (07:42)
--- NOTE | 2023-01-29 07:55 | EX.PCM.DISCH ---
Discharge Instructions Diet Discharge Diet: No restrictions Activity Discharge Activity: Return to Normal Activity May resume sexual activity in: No Restrictions Dressing / Incision Call your doctor if you observe: Fever of 101 or Higher, Inability to urinate and Inability to have a bowel movement Follow Up Care Please Follow Up With: Nirmala Barrios MD When: call office for appt Test Results: Test results from this visit will be discussed in further detail at your follow-up appointment, if applicable. Discharge Plan Admission Attending Provider: Nirmala Barrios Primary Care Provider: Flavio Hudson Discharge Orders/Prescriptions Prescriptions: New oxycodone-acetaminophen [Percocet] 5-325 mg tablet 1 tab PO Q8H PRN (Reason: pain) 5 Days Qty: 20 0RF cephalexin [cephalexin] 500 mg capsule 500 mg PO Q12 3 Days Qty: 6 0RF Continued naproxen 250 MG tablet 250 - 500 mg PO Q8H PRN PRN (Reason: Mild Pain) Qty: 30 0RF acetaminophen 500 MG tablet 1,000 mg PO Q8 0RF oxycodone 5 MG tablet 5 - 10 mg PO Q4H PRN PRN (Reason: Severe Pain (6-1010)) 7 Days Qty: 28 0RF bisoprolol fumarate 5 mg tablet 5 mg PO QHS ramipril 1.25 mg capsule 1.25 mg PO DAILY Referrals / Follow Up: Flavio Hudson MD [Primary Care Provider] - Disposition Disposition (needs filled in before D/C Order can be placed): Home, Self Care
--- NOTE | 2023-01-29 08:03 | PCM.OPRPT ---
Report of Operation Date of Procedure: 01/29/23 Pre-Operative Diagnosis: right ureteral calculus Post-Operative Diagnosis: same Surgery/Procedure Performed:: right proximal ureteral calculus extracorporeal shockwave lithotripsy Surgeon: Nirmala Barrios Type of Anesthesia: General Specimen's removed: none Description of Procedure: The patient is a 48-year-old female with a proximal right ureteral calculus and pain. Informed consent has been obtained. She was taken to the operating room and placed in a supine position on the lithotripsy table. Anesthesia monitored the head, neck, airway, IV access and vital signs throughout the case. Once anesthesia was appropriately administered, the patient was aligned with his lithotripter. The stone was easily visualized on the fluoroscopy and was shocked with 3000 shocks. The stone appeared to be well fragmented at the conclusion of the case. The patient was then awakened and taken to the recovery room in good condition. There were no complications during this procedure. Grafts/Implants Used: none Complications none Admit VTE Documentation VTE Present on Admission: Yes VTE Mechan Device Prophylaxis: SCD's VTE Pharm Prophylaxis ordered?: No Reason prophylaxis not ordered:: Treatment Not Indicated
[2023-01-29 08:33] VITALS: BP 137/79; BP 137/82; PULSE 71; RESP 16; TEMP 36.6; O2SAT 96
[2023-01-29 08:45] VITALS: BP 131/78; BP 137/82; PULSE 83; RESP 16; O2SAT 96
[2023-01-29 09:00] VITALS: BP 128/83; BP 137/82; PULSE 72; RESP 16; O2SAT 99
[2023-01-29 09:15] VITALS: BP 124/77; BP 137/82; PULSE 76; RESP 16; TEMP 36.1; O2SAT 97
[2023-01-29 09:50] VITALS: BP 137/82
== END 2023-01-29 10:08 | disposition home or self-care (01) ==
LOC: SDC 06:01 → AC 06:02
PROVIDERS: PCP Family Medicine; Referring Provider Urology; Visit Provider Urology
PROC: (CPT 50590; principal; 2023-01-29 07:20)
DX: N20.1 Calculus of ureter (principal); I10 Essential (primary) hypertension; Z79.899 Other long term (current) drug therapy
CPT/HCPCS: 50590; 00873; J7120; J2405

== ENCOUNTER → 2023-02-07 | Outpatient (CLI) | payer OTHER, SELFPAY ==
--- NOTE | 2023-02-07 07:19 | CT_ITS ---
EXAM: CT ABDOMEN WITH INTRAVENOUS CONTRAST CLINICAL INDICATION: finding on previous CT. Possible hemangioma. TECHNIQUE: Helically acquired images were obtained of the abdomen with intravenous contrast. This CT exam was performed using one or more of the following dose reduction techniques: automated exposure control, adjustment of the mA and/or kV according to patient size, and/or use of iterative reconstruction technique. This report was created using [employer] report generation technology. CONTRAST: IV 100mL Isovue-300 COMPARISON: 01/15/2023. FINDINGS: LOWER THORAX: Unremarkable. Lung bases are clear. No cardiomegaly. No significant pericardial effusion. LIVER: Low-attenuation lesion in the medial segment of the liver measures approximately 2.7 x 2 x 4.1 cm. No peripheral enhancement. No centripetal filling on delayed images. The lesion is not consistent with hemangioma and most likely represents focal fatty infiltration. Enhancement characteristics are not consistent with adenoma or FNH. GALLBLADDER AND BILE DUCTS: Unremarkable. No calcified gallstones. No gallbladder distention or wall edema. No intra- or extrahepatic biliary ductal dilation. PANCREAS: Unremarkable. No focal cystic or solid mass. SPLEEN: Unremarkable. Normal size without focal cystic or solid mass. ADRENALS: Unremarkable. No nodules. KIDNEYS AND URETERS: 1.7 cm right renal cyst. Kidneys are otherwise unremarkable. No hydronephrosis. Normal renal size and position. STOMACH AND BOWEL: No stomach or bowel distention. No focal inflammatory change. INTRAPERITONEAL SPACE: Unremarkable. No ascites or other fluid collection. No free air. BONES/JOINTS: No fracture or destructive bone lesion. SOFT TISSUES: Unremarkable. No discrete abdominal wall hernia. VASCULATURE: Abdominal aorta is normal in caliber. LYMPH NODES: No enlarged lymph nodes. CT/Abdomen WITH IV Contrast IMPRESSION: 1. Hepatic lesion most consistent with focal fatty infiltration. If clinically warranted, this may be confirmed with noncontrast MRI utilizing in- and out of phase imaging. 2. Right renal cyst. Follow-up is not indicated per ACR guidelines. Electronically Signed: Lorena Gregorio MD at 21:24 EDT Reading Location ID and State: [id number] / Tel , Service support ,
== END | disposition home or self-care (01) ==
LOC: CT 07:18
PROVIDERS: PCP Family Medicine; Referring Provider Family Medicine; Visit Provider Family Medicine
DX: D18.03 Hemangioma of intra-abdominal structures (principal)
CPT/HCPCS: 74160; Q9967

== ENCOUNTER → 2023-02-18 | Outpatient (CLI) | payer OTHER, SELFPAY ==
--- NOTE | 2023-02-18 09:03 | RAD_ITS ---
STUDY: X-RAY - ABDOMEN/PELVIS REASON FOR EXAM: Female, 48 years old. KUB- URETERAL CALC. TECHNIQUE: Single AP view of the abdomen / pelvis. COMPARISON: Comparison is made with prior study dated January 21, 2023. FINDINGS: Normal visualized lung bases. There is a moderate amount of colonic fecal material. The previously seen linear calcification in the right mid abdomen is not seen at this time. Normal soft tissue structures. Normal visualized osseous structures. RAD/Abdomen Single View IMPRESSION: Normal x-ray examination of the abdomen and pelvis. Electronically Signed: Fred Cornelius MD at 15:38 EDT ,
== END | disposition home or self-care (01) ==
LOC: MTRAD 09:02
PROVIDERS: PCP Family Medicine; Referring Provider Urology; Visit Provider Urology
DX: N20.1 Calculus of ureter (principal)
CPT/HCPCS: 74018

== ENCOUNTER → 2023-03-25 | Outpatient (CLI) | payer OTHER, SELFPAY ==
[2023-03-25 17:59] LABS: Calcium,Total 10.1 mg/dL (8.5-10.1)
== END | disposition home or self-care (01) ==
LOC: MTLAB 16:15
PROVIDERS: PCP Family Medicine; Referring Provider Urology; Visit Provider Urology
DX: N20.0 Calculus of kidney (principal); R82.994 Hypercalciuria
CPT/HCPCS: 36415; 82310

== ENCOUNTER 2023-05-06 08:30 | Outpatient (RCR) | payer OTHER, SELFPAY ==
--- NOTE | 2023-03-25 13:31 | HP.PTEVAL ---
Patient's Visit Information MANISH CRESPO is a 48 year old F referred to Physical Therapy by Dr. Flavio Hudson MD with a diagnosis of Back pain. Date of Evaluation: 03/25/23 Physical Therapist: Flavio Boyd, BR[place], OCS, CSCS - Visit Plan Frequency: 1x/Week Duration: 2-4 Weeks Plan: weekly x 2-4 for progression of ROM(PA mobs if needed neck and thoracic) and postural correction and strenght of neck, scap as improving. Next session check ROM ext, posture and teach strength neck and scap if doing better. - Subjective Started having kidney stone issues in October and got lazy sitting at a desk as she could not do much. Got upper back pain intermittently burning and worse sitting. Kidney stones gone with laser surgery. No history of back pain. Now is daily intermittently up to 10, stretching helps. No arm symptoms, no numbness or tingling. Wakes up with it. Sleep is not a problem, sleeps on L side. 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 Basic ADls getting done. This is worsening over last 5-6 months. Hobbies: reading. No regular exercise exept walking a mile 3-4 x per week. - Pain upper back Pain Intensity (Out of 10): 2 Pain Intensity Range: 0, 4 - Objective Posture is forward head and protracted scap. No tenderness in neck or scap mm. UE AROM WFL and without pain. strength UE 4+/5 without myotomal problems. sensation WNL to gross light touch in UE. reflexes 1/3 bi and tri. - cervical compression. cervical AROM ext painful and 58 and rotations 80 and no pain. SB are fine and painfree. repeated retraction extension helps pain and improves ext ROM to 75 degrees quickly. repeated Flexion NE on pain - Balance/Special Test Scores Oswestry Neck Score: 4 - Goals Goal 1:: full cervical AROm to 85 degrees without neck or upper back pain Goal Time Frame: 2-4 Weeks Goal 2:: Pain 0-1/10 at allt imes Goal Time Frame: 2-4 Weeks Goal 3:: Pt feel 100% back to normal pain and activity Goal Time Frame: 2-4 Weeks Goal 4:: I managemnt of condtiion /HEP/posture Goal Time Frame: 2-4 Weeks - Rehabilitation Potential Physical Therapy Diagnosis: thoracic pain/lower cervical likely discal/postural Rehabilitation Potential: Fair - Anticipated Interventions Patient/Client Instruction: Educate patient on: Condition, Plan of Care For the Purpose of:: To decrease pain, To increase ROM Therapeutic Exercise to Include: Strength training, Postural training, Flexibilty training, Passive ROM, Active ROM For the Purpose of:: To decrease pain, To increase ROM, To improve nutrient delivery to tissue, To improve muscle performance and motor function, To increase tolerance to activity/condition/position Thank you for the opportunity to evaluate your patient. For Medicare and Medicare HMO plans, please review the plan of care and approve it. It will need to be FAXED BACK to us at [phone] for Medicare purposes. For Medicare only, by signing this I certify the plan of care. Please let me know if there are questions or concerns regarding this plan of care. Physician Signature: Date:
--- NOTE | 2023-05-06 09:15 | HP.PTDCSUM ---
Discharge Summary D/C summary: It has been my pleasure to treat MANISH CRESPO referred by Dr. lFavio Hudson MD, with the diagnosis of Back pain for a total of 7 visit(s). Discharge Date: 05/06/23 Please see the following information for a summary of their discharge status. Subjective Subjective: Much better. Very infrequent pain. Pain now is not daily, Had two days without pain in a row. Mostly every other day 2/10 with certain ROM, stretches. Sleep is fine. Activities : normal. Pain upper back: Pain Intensity (Out of 10): 1 Overall Improvement % Improvement: 90 Objective Objective/Function: Full cervical aROM 85 ext, 90 L rotationa dn 85 R rotation. No tenderness in rhomb oids anynmore. Feeling good and full UE and cervical aROM without pain. Goals Goal 1:: full cervical AROm to 85 degrees without neck or upper back pain Goal Progress: Goal Met Goal 2:: Pain 0-1/10 at allt imes Goal Progress: 2/10 Goal 3:: Pt feel 100% back to normal pain and activity Goal Progress: Progressing Goal 4:: I managemnt of condtiion /HEP/posture Goal Progress: Goal Met Plan Plan: d/c D/C Information Discharge Comments: Doing well and will continue via HEP. d/c sentence: If there are questions or concerns regarding this patient's physical therapy, please feel free to call me at [phone]. Thank you for the referral of this patient. Sincerely, Flavio Boyd, DPT, OCS, CSCS Balance/Gait/Functional tests Balance/Special Test Scores Oswestry Low Back Score: 0 Oswestry Neck Score: 4
== END 2023-05-06 19:00 | disposition home or self-care (01) ==
LOC: PT 08:30
PROVIDERS: PCP Family Medicine; Referring Provider Family Medicine; Visit Provider Family Medicine
DX: M54.9 Dorsalgia, unspecified (principal); R10.9 Unspecified abdominal pain; Z87.442 Personal history of urinary calculi
CPT/HCPCS: 97035; 97110; 97140; 97161; 97164

== ENCOUNTER → 2023-06-03 | Outpatient (CLI) | payer OTHER, SELFPAY ==
--- NOTE | 2023-06-03 13:38 | BI_ITS ---
MAMMOGRAPHY - BILATERAL SCREENING REASON FOR EXAM: Female, 48 years old. Routine annual screening examination. PERTINENT HISTORY: Mother with breast cancer. TECHNIQUE: Digital bilateral breast bereket (3D mammographic acquisition) in the CC and MLO projections. 2-D mediolateral oblique (MLO) and craniocaudad (CC) views of both breasts were obtained. CAD: Full Field Digital Mammography with Computer Added Detection was performed. COMPARISON: Comparison is made with prior study dated May 07, 2022 and May 05, 2021. FINDINGS: Breast Composition: The breasts are heterogeneously dense, which may obscure small masses. There are no dominant masses or suspicious calcifications. Stable benign-appearing bilateral axillary lymph nodes. No other significant abnormalities are identified. There has been no significant change since the prior study. BI/SCRN MAMM (CAD)W/BEREKET BILAT IMPRESSION: Stable bilateral screening mammogram. Yearly follow-up mammogram recommended. (A) ASSESSMENT CATEGORY: BIRADS Category 2: Benign. A letter regarding these results will be sent to the patient by the facility within 30 days. Approximately 10% of breast cancers are not detected by mammography. A normal mammogram should not delay biopsy of a clinically suspicious abnormality. [id number] Electronically Signed: Fred Cornelius MD at 15:26 EDT ,
[2023-06-03 14:55] LABS: Microalbumin,Random Urine < 5.0 mg/L (NO RANGE EST.)
[2023-06-03 15:13] LABS: AST(SGOT) 15 U/L (15-37); Alanine Aminotransfer ALT/SGPT 32 U/L (13-56); Albumin, Serum 3.6 g/dL (3.2-5.0); Alkaline Phosphatase 68 U/L (45-117); Anion Gap 6 (5-15); BUN 14 mg/dL (7-18); BUN/Creat Ratio 13.5 RATIO (10-20); Calcium,Total 9.3 mg/dL (8.5-10.1); Chloride 104 mmol/L (98-107); Cholesterol 208 mg/dL (200); Creatinine, Serum 1.04 mg/dL (0.55-1.02); EST Glomerular Filtration Rate 61 mL/min (>60); Est Glom Filt Rate - Afr Amer 73 mL/min (>60); Globulin 3.7 g/dL (2.2-4.2); Glucose 83 mg/dL (74-106); High Density Lipoprotein 48 mg/dL; Protein, Total 7.3 g/dL (6.4-8.2); Sodium Level 138 mmol/L (136-145); Thyroid Stim Hormone (TSH) 2.34 uIU/mL (0.358-3.74); Triglycerides 134 mg/dL; Very Low Density Lipoprotein 27 mg/dL (5-40)
== END | disposition home or self-care (01) ==
PROVIDERS: PCP Family Medicine; Referring Provider Student in an Organized Health Care Education/Training Program; Visit Provider Student in an Organized Health Care Education/Training Program
DX: Z12.31 Encounter for screening mammogram for malignant neoplasm of breast (principal); Z13.220 Encounter for screening for lipoid disorders; R53.83 Other fatigue
CPT/HCPCS: 36415; 77063; 77067; 80053; 80061; 82043; 82570; 84443

== ENCOUNTER → 2023-08-31 | Outpatient (CLI) | payer OTHER, SELFPAY ==
[2023-08-31 11:16] LABS: Absolute Lymphocyte Count 1.59 X10^3/uL (0.83-4.51); Basophil# 0.06 X10^3/uL; Basophil% 0.8 % (0-1); Eosinophil# 0.15 X10^3/uL; Eosinophils% 1.9 % (0-5); Hematocrit 43.1 % (37-47); Hemoglobin 13.8 g/dL (12.0-15.0); Lymphocyte # 1.59 X10^3/ul (0.83-4.51); Lymphocyte % 20.5 % (19-41); Mean Corpuscular Hgb 28.4 pg (27.0-32.0); Mean Corpuscular Volume 88.7 fL (81-99); Mean Platelet Vol. 9.8 fl (6.2-12.0); Monocyte# 0.86 X10^3/uL; Monocyte% 11.1 % (0-10); NRBC Flagged by Analyzer 0 % (0-5); Neutrophil # 5.03 X10^3/uL (2.7-7.7); Neutrophil % 65.1 % (47-70); Platelet Count 235 K/mm3 (150-450); RBC Distribution Width CV 13.4 % (11.6-14.6); RBC Distribution Width SD 43.6 fl (35.1-43.9); Red Blood Count 4.86 M/mm3 (4.2-5.4); White Blood Count 7.7 K/mm3 (4.4-11.0)
[2023-08-31 11:48] LABS: 24HR. Urine Creatinine 1.56 g/24 HR (0.70-1.90)
[2023-08-31 11:51] LABS: AST(SGOT) 16 U/L (15-37); Alanine Aminotransfer ALT/SGPT 26 U/L (13-56); Albumin, Serum 3.5 g/dL (3.2-5.0); Alkaline Phosphatase 73 U/L (45-117); Anion Gap 3 (5-15); BUN 12 mg/dL (7-18); BUN/Creat Ratio 12.9 RATIO (10-20); Calcium,Total 9.4 mg/dL (8.5-10.1); Chloride 107 mmol/L (98-107); Creatinine, Serum 0.93 mg/dL (0.55-1.02); EST Glomerular Filtration Rate 69 mL/min (>60); Est Glom Filt Rate - Afr Amer 83 mL/min (>60); Globulin 3.6 g/dL (2.2-4.2); Glucose 94 mg/dL (74-106); Protein, Total 7.1 g/dL (6.4-8.2); Sodium Level 138 mmol/L (136-145)
== END | disposition home or self-care (01) ==
PROVIDERS: PCP Family Medicine; Referring Provider Family Medicine; Visit Provider Family Medicine
DX: R00.2 Palpitations (principal)
CPT/HCPCS: 36415; 80053; 81050; 82088; 82530; 82570; 82627; 83497; 83835; 84244; 85025; 82626

== ENCOUNTER → 2023-09-11 | Outpatient (CLI) | payer OTHER, SELFPAY ==
[2023-09-15 08:07] LABS: 5-HIAA, 24UR 3.6 mg/24 hr (0.0-14.9); Cortisol, Free 24Ur 11 ug/24 hr (6-42); Cortisol, Urinary Free 6 ug/L (Undefined); Metanephrine, Ur 36 ug/L (Undefined); Metanephrines, 24Ur 65 ug/24 hr (36-209); Normetanephrines, 24Ur 227 ug/24 hr (131-612); Normetanephrines, Ur 126 ug/L (Undefined)
== END | disposition home or self-care (01) ==
LOC: LAB 09:13 → LABSPEC 09:14
PROVIDERS: PCP Family Medicine; Referring Provider Family Medicine; Visit Provider Family Medicine
DX: R00.2 Palpitations (principal)
CPT/HCPCS: 81050; 82530; 83497; 83835

== ENCOUNTER 2023-12-11 10:30 | Outpatient (RCR) | payer OTHER, SELFPAY ==
--- NOTE | 2023-11-11 08:01 | HP.PTEVAL_ITS ---
Patient's Visit Information Visit Information Visit Information: MANISH CRESPO is a 48 year old F referred to Physical Therapy by Dr. Flavio Hudson MD with a diagnosis of Cervical Spine. Date of Evaluation: 11/11/23 Physical Therapist: Daly Billingsley DPT Visit Plan Frequency: 2x /Week Duration: 4 Weeks Plan: Postural correction Modality: Cervical Traction- manual prior to mechanical- US and TENS PRN HEP Given IE: scapular retraction, chin tucks, postural education Subjective Subjective: She reports pain in neck on the right side for a few months- insidious onset- tried chiro, heat, massage gun- nothing really has changed the pain. Pain is located toward the back and off to the side- the pain is always there and she does have pain in the shoulder joints- mom has RA so she is unsure if she is getting some of that but mostly just in the neck. Describes the pain as dull and achy- constant. Pain is sharp if she side bends to the right. Worst: 5/10 Agg: SB to the right, SB to the left, catches with movement, worse in the AM Eases: nothing Best: .5/10. During the night she will wake up the thumb and first 2 fingers on both sides are numb- never the same side together- if she moves around the numbness goes away and never during the day. Sleep: side sleeper. She has tried different pillows. Neck rarely wakes her up. Not sure what wakes her up at night- she wakes up every other night 1-2x a night. That is not new. She has 4 kids (05/02/). 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 She has not had any x-rays or MRI on the neck. She had upper back pain on her left side- she has therapy for that- chiro- that got better and has been gone for several months- adjustments and exercise for that. She has no blurred vision or dizziness. Does have SALAZAR and nausea from the pain. SALAZAR- 2x a week- start in the occiput and come up but not over the top of the skull. She feels that pain is staying the same. PMHx/Meds: see list in chart. Objective Objective: Posture: forward head, rounded shoulders- can correct but does not maintain Gait: good arm swing and trunk rotation ROM:Cervical spine: Flexion: WFL does have pain with end range, Extn: WFL does have pain with end range, SB: WFL pain and report tight bilateral right >left, Rotation: right: 40 with pain Left: 50 Shoulder: WFL pain with right Elbow/Wrist/Hand: WNL Strength: Cervical: Isometric: 4+/5 with discomfort in all planes, Shoulder: 5/5 throughout, Scap: fair minus Palpation: shoulder: not tender, right cervical: tightness noted but not tender Special Test: distraction: decreased pain, Increased discomfort with SB to the left/slight flexion Flex: UT: moderate, Levator: severe Balance/Special Test Scores Oswestry Neck Score: 7 Goals Goal 1:: Patient will report participation in home exercise program activities a minimum of 5 days per week, as adjunct to skilled physical therapy intervention in preparation for independent home management upon discharge. Goal Time Frame: 4-6 Weeks Goal 2:: Patient will maintain proper posture t/o tx session to demo increased scap s/s Goal Time Frame: 4-6 Weeks Goal 3:: Patient will demo full AROM of the cervical spine without pain Goal Time Frame: 4-6 Weeks Goal 4:: Patient will report 80% improvement Goal Time Frame: 4-6 Weeks Rehabilitation Potential Physical Therapy Diagnosis: Patient presents with hypomobility- she has decreased scapular strength/stabilization, pain free ROM, and increased pain Rehabilitation Potential: Good Anticipated Interventions Patient/Client Instruction: Educate patient on: Benefits of Fitness Program Therapeutic Exercise to Include: Strength training, Endurance training, Coordination, Body mechanics, Postural training, Neuromotor development and Scapular Strength/Stabilization Manual Therapy Techniques to Include: Mobilization and Soft tissue mobilization TENS: Yes Cryotherapy (ice pack, ice massage): Yes Thermo therapy (hot pack): Yes Ultrasound (thermal/non thermal): Yes Intermittent cervical traction: Yes (Manual First) Text: Thank you for the opportunity to evaluate your patient. For Medicare and Medicare HMO plans, please review the plan of care and approve it. It will need to be FAXED BACK to us at [phone] for Medicare purposes. For Medicare only, by signing this I certify the plan of care. Please let me know if there are questions or concerns regarding this plan of care. Physician Signature:_ Date:
--- NOTE | 2023-12-12 13:17 | HP.PTDCSUM ---
Discharge Summary D/C summary: It has been my pleasure to treat MANISH CRESPO referred by Dr. Flavio Hudson MD, with the diagnosis of Cervical Spine for a total of 8 visit(s). Discharge Date: 12/12/23 Please see the following information for a summary of their discharge status. Subjective Subjective: Pt. reports having 3-4/10 pain at rest, but does go up to about 6/10 with activities. Pt. doers have some N/T mostly with sleeping. Pain Cervical: Pain Intensity (Out of 10): 3 Overall Improvement % Improvement: 0 Objective Objective/Function: Pt. reports continues to have increased pain in the AMs, then is pretty steady as the day goes on. She does report bilateral N/T in her thumb, index finger and middle finger of BUEs as night (only at night). ROM: B shoulders: full ROM without increase in symptoms. CERVICAL SPINE: AROM flexion nil loss NE, ext nil loss NE, rotation L nil loss NE, rotation R min loss increase NW, SB nil loss bilat NE. Pt. did have full ROM of cervical spine without increase in symptoms. Pt. has no myotomal weakness. She had negative testing with compression. I was not able to elicit any distal neuro symptoms. She continues to be tender along insertion of levator scap at R side of cervical spine. Pt. reports minimal progress at this point in time. I am recommending that she follow back up with physician at this point in time. She has tried traction, manual therapy, stretching, US without any lasting relief. She reports nothing really effected her initial symptoms. I was not able to increase or reduce her neck pain except with levator scap stretching. She reports this made it worse when tried previously. Her symptoms do not seem to be discogenic in nature but more muscular. With that being said I would have expected her symptoms to be better with what was tried. I am referring her back to physician at this point in time. Goals Goal 1:: Patient will report participation in home exercise program activities a minimum of 5 days per week, as adjunct to skilled physical therapy intervention in preparation for independent home management upon discharge. Goal Progress: Progressing Goal 2:: Patient will maintain proper posture t/o tx session to demo increased scap s/s Goal Progress: Progressing Goal 3:: Patient will demo full AROM of the cervical spine without pain Goal Progress: Not Progressing Goal 4:: Patient will report 80% improvement Goal Progress: Not Progressing Plan Plan: DC back to physician further further evaluation. D/C Information Discharge Comments: Pt. will be DC from PT at this point in time. We tried manual therapy, traction, US and massage. She has not had much relief with Pt thus far. I advised her to continue with some of the exercises, but to also follow up with her physician for further evaluation. d/c sentence: If there are questions or concerns regarding this patient's physical therapy, please feel free to call me at [phone]. Thank you for the referral of this patient. Sincerely, Nicola Fraga Sipos, DPT Balance/Gait/Functional tests Balance/Special Test Scores Oswestry Neck Score: 7 Improvement % Improvement: 0
== END 2023-12-11 19:00 | disposition home or self-care (01) ==
LOC: PT 10:30
PROVIDERS: PCP Family Medicine; Referring Provider Family Medicine; Visit Provider Family Medicine
DX: M54.2 Cervicalgia (principal); M25.511 Pain in right shoulder
CPT/HCPCS: 97012; 97035; 97110; 97140; 97162

== ENCOUNTER → 2024-02-17 | Outpatient (CLI) | payer OTHER, SELFPAY ==
--- NOTE | 2024-02-17 08:33 | MRI_ITS ---
HISTORY: Cervicalgia, radiculopathy, right lower neck/upper back pain x 6 months, no injury. TECHNIQUE: Multiplanar and multisequence MR images of the cervical spine were obtained without contrast. 558 images. COMPARISON: None. FINDINGS: VERTEBRAE: Vertebral body heights maintained. Mild degenerative bone marrow endplate changes of C4-5 and C6-7. VERTEBRAL ALIGNMENT: Straightening of the cervical lordosis without anterior or posterior subluxation. SPINAL CORD: Cervical cord signal and morphology within normal limits. SOFT TISSUES: No cervical prevertebral fluid collection. Incompletely imaged 3.5 cm paraspinal cyst at the left T3-4 level. INTERVERTEBRAL DISCS: C2-3, C3-4: No significant posterior disc protrusion, central canal stenosis, or foraminal narrowing. C4-5: Very mild disc bulge with uncovertebral arthropathy and right facet arthritis resulting in minimal narrowing of the thecal sac and mild right foraminal narrowing. C5-6: Very mild disc bulge resulting in minimal narrowing of the thecal sac. No significant foraminal narrowing. C6-7: Mild posterior disc bulge osteophyte complex resulting in minimal narrowing of the thecal sac. No significant foraminal narrowing. C7-T1: No significant posterior disc protrusion, central canal stenosis, or foraminal narrowing. MRI/Spine Cervical (Routine) IMPRESSION: Mild disc bulges of the cervical spine without significant spinal canal stenosis. Mild right foraminal narrowing of C4-5. 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 Recommend follow-up MRI thoracic spine without and with contrast or CT chest with contrast. Electronically Signed: Genesis Parks MD at 15:04 EDT ,
== END | disposition home or self-care (01) ==
LOC: MRI 08:59
PROVIDERS: PCP Family Medicine; Referring Provider Family Medicine; Visit Provider Family Medicine
DX: M54.12 Radiculopathy, cervical region (principal)
CPT/HCPCS: 72141

== ENCOUNTER → 2024-03-17 | Outpatient (CLI) | payer OTHER, SELFPAY ==
[2024-03-17 12:37] LABS: Microalbumin,Random Urine 13.7 mg/L (NO RANGE EST.); Microalbumin:Creatinine Ratio 7.1 mg/g CRE (<30 mg/g CRE)
[2024-03-17 13:18] LABS: AST(SGOT) 18 U/L (15-37); Alanine Aminotransfer ALT/SGPT 38 U/L (13-56); Albumin, Serum 3.5 g/dL (3.2-5.0); Alkaline Phosphatase 49 U/L (45-117); Anion Gap 8 (5-15); BUN 15 mg/dL (7-18); BUN/Creat Ratio 16.6 RATIO (10-20); Calcium,Total 9.4 mg/dL (8.5-10.1); Chloride 107 mmol/L (98-107); Cholesterol 210 mg/dL (200); EST Glomerular Filtration Rate 71 mL/min (>60); Est Glom Filt Rate - Afr Amer 86 mL/min (>60); Globulin 3.5 g/dL (2.2-4.2); Glucose 110 mg/dL (74-106); High Density Lipoprotein 49 mg/dL; Sodium Level 138 mmol/L (136-145); Triglycerides 174 mg/dL; Very Low Density Lipoprotein 35 mg/dL (5-40)
== END | disposition home or self-care (01) ==
LOC: MFPLAB 09:53
PROVIDERS: PCP Family Medicine; Visit Provider Family Medicine
DX: I10 Essential (primary) hypertension (principal)
CPT/HCPCS: 36415; 80053; 80061; 82043; 82570

== ENCOUNTER → 2024-03-31 | Outpatient (CLI) | payer OTHER, SELFPAY ==
--- NOTE | 2024-03-31 11:40 | RAD_ITS ---
INDICATION: STONES- KUB EXAMINATION/TECHNIQUE: X-RAY - XR Abdomen 1 View COMPARISON: None FINDINGS: BOWEL GAS PATTERN: Non-obstructive. No bowel or stomach distention. FREE AIR: Not assessed on a single supine view. ORGANOMEGALY: Not seen. CALCIFICATIONS: No abnormal calcifications observed. LOWER CHEST: No acute pathology. BONES AND SOFT TISSUES: No acute pathology. RAD/Abdomen Single View IMPRESSION: No renal stones visualized. Electronically Signed: Oliver Harris MD at 1:35 EDT ,
== END | disposition home or self-care (01) ==
LOC: MTRAD 11:39
PROVIDERS: PCP Family Medicine; Referring Provider Urology; Visit Provider Urology
DX: N20.0 Calculus of kidney (principal)
CPT/HCPCS: 74018

== ENCOUNTER → 2024-04-10 | Outpatient (CLI) | payer OTHER, SELFPAY ==
--- NOTE | 2024-04-10 16:16 | MRI_ITS ---
STUDY: MRI THORACIC SPINE WITH AND WITHOUT CONTRAST REASON FOR EXAM: Female, 49 years old. cyst, mediastinum, retrocardiac finding, F/U ABNORMAL CERVICAL MRI TECHNIQUE: IV 19 cc CLARISCAN was administered for the contrast portion of the examination. COMPARISON: None. FINDINGS: Normal kyphosis of the thoracic spine. There is no substantial scoliosis. T1-2, T2-3, T3-4, T4-5, T5-6, T6-7, T7-8, T8-9, T9-10, T10-11, T11-12: Normal endplates. Normal disc hydration, heights and morphology of the corresponding intervertebral discs. Normal central canal and intervertebral neural foramina at the corresponding levels. Normal visualized thoracic cord. 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 Otherwise normal MRI with and without contrast Electronically Signed: Daniel Calloway MD at 18:49 EDT ,
== END | disposition home or self-care (01) ==
LOC: MRI 16:11
PROVIDERS: PCP Family Medicine; Referring Provider Family Medicine; Visit Provider Family Medicine
DX: Q34.1 Congenital cyst of mediastinum (principal)
CPT/HCPCS: 72157; A9575

== ENCOUNTER → 2024-06-05 | Outpatient (CLI) | payer OTHER, SELFPAY ==
--- NOTE | 2024-06-05 08:05 | BI_ITS ---
MAMMOGRAPHY - BILATERAL SCREENING REASON FOR EXAM: Female, 49 years old. Routine annual screening examination. PERTINENT HISTORY: Mother with breast cancer. TECHNIQUE: Digital bilateral breast bereket (3D mammographic acquisition) in the CC and MLO projections. 2-D mediolateral oblique (MLO) and craniocaudad (CC) views of both breasts were obtained. CAD: Full Field Digital Mammography with Computer Added Detection was performed. COMPARISON: Comparison is made with prior study June 03, 2023 and May 07, 2022. FINDINGS: Breast Composition: The breasts are heterogeneously dense, which may obscure small masses. There are no dominant masses or suspicious calcifications. No other significant abnormalities are identified. There has been no significant change since the prior study. BI/SCRN MAMM (CAD)W/BEREKET BILAT IMPRESSION: Stable bilateral screening mammogram. Yearly follow-up mammogram recommended. (A) ASSESSMENT CATEGORY: BIRADS Category 1: Negative. A letter regarding these results will be sent to the patient by the facility within 30 days. Approximately 10% of breast cancers are not detected by mammography. A normal mammogram should not delay biopsy of a clinically suspicious abnormality. [id number] Electronically Signed: Fred Cornelius MD at 9:08 EDT ,
== END | disposition home or self-care (01) ==
LOC: OPBI 08:04
PROVIDERS: PCP Family Medicine; Referring Provider Family Medicine; Visit Provider Family Medicine
DX: Z12.31 Encounter for screening mammogram for malignant neoplasm of breast (principal)
CPT/HCPCS: 77063; 77067

== ENCOUNTER → 2025-03-30 | Outpatient (CLI) | payer OTHER, SELFPAY ==
[2025-03-30 12:19] LABS: Absolute Lymphocyte Count 1.56 X10^3/uL (0.83-4.51); Absolute Neutrophil Count 4.2 X10^3/uL (2.0-7.7); Basophil# 0.04 X10^3/uL; Basophil% 0.6 % (0-1); Eosinophil# 0.13 X10^3/uL; Hematocrit 44.4 % (37-47); Hemoglobin 14.6 g/dL (12.0-15.0); Lymphocyte # 1.56 X10^3/ul (0.83-4.51); Lymphocyte % 24.2 % (19-41); Mean Corp Hgb Conc 32.9 g/dL (32-36); Mean Corpuscular Hgb 29.1 pg (27.0-32.0); Mean Corpuscular Volume 88.4 fL (81-99); Mean Platelet Vol. 10.2 fl (6.2-12.0); Monocyte# 0.45 X10^3/uL; NRBC Flagged by Analyzer 0 % (0-5); Neutrophil # 4.24 X10^3/uL (2.7-7.7); Neutrophil % 65.7 % (47-70); Platelet Count 295 K/mm3 (150-450); RBC Distribution Width CV 13.2 % (11.6-14.6); RBC Distribution Width SD 42.7 fl (35.1-43.9); Red Blood Count 5.02 M/mm3 (4.2-5.4); White Blood Count 6.5 K/mm3 (4.4-11.0)
[2025-03-30 12:44] LABS: ALB/GLOB Ratio 1.4 RATIO (0.9-2.4); AST(SGOT) 22 U/L (<=31); Alanine Aminotransfer ALT/SGPT 28 U/L (<=34); Albumin, Serum 4.3 g/dL (3.5-5.0); Alkaline Phosphatase 64 U/L (35-104); Anion Gap 12 (5-15); BUN 14 mg/dL (4-19); BUN/Creat Ratio 15.2 RATIO (10-20); Calcium,Total 10.4 mg/dL (7.6-11.0); Carbon Dioxide 25.8 mmol/L (21.0-32.0); Chloride 101 mmol/L (98-108); Creatinine, Serum 0.93 mg/dL (0.70-1.20); EST Glomerular Filtration Rate 76 (>60); Glucose 110 mg/dL (70-99); Potassium 4.2 mmol/L (3.3-5.1); Protein, Total 7.3 g/dL (5.9-8.4); Sodium Level 139 mmol/L (133-145); Total Bilirubin 0.52 mg/dL (0.00-1.30)
[2025-03-30 12:57] LABS: Hemoglobin A1c 5.7 % (<=5.6)
--- OUTSIDE RECORDS SUMMARY | 2025-03-30 21:48 | XMS RPT_ITS | CCD ---
Author Organization [facility] Care Team Providers Care Fast Food Sales Assistant Name Role Phone Unavailable Primary Care Provider UnavailDr. Flavio Little Primary Care Provider Dr. Flavio Hudson Referring Provider [phone] Garrison Singh Attending Provider Dr. Bob Barnes Attending Provider Hudson, Flavio Primary Care Unavailable Hudson, Flavio Attending Unavailable Hudson, Flavio Referring Unavailable Hudson, Flavio Primary Care Unavailable Hudson, Flavio Attending Unavailable Hudson, Flavio Referring Unavailable Hudson, Flavio Primary Care Unavailable Hudson, Flavio Attending Unavailable Hudson, Flavio Referring Unavailable Hudson, Flavio Attending Unavailable Hudson, Flavio Referring Unavailable Hudson, Flavio Primary Care Unavailable Hudson, Flavio Primary Care Unavailable Hudson, Flavio Attending Unavailable Hudson, Flavio Referring Unavailable Hudson, Flavio Primary Care Unavailable Garrison Singh Attending Unavailable Hudson, Flavio Referring Unavailable Bob Barnes Attending Unavailable Hudson, Flavio Primary Care Unavailable Hudson, Flavio Referring Unavailable Hudson, Flavio Primary Care Unavailable Garrison Singh Attending Unavailable Hudson, Flavio Primary Care Unavailable Bob Barnes Attending Unavailable Hudson, Flavio Attending Unavailable Hudson, Flavio Referring Unavailable Hudson, Flavio Primary Care Unavailable Hudson, Flavio Primary Care Unavailable Hudson, Flavio Attending Unavailable Hudson, Flavio Referring Unavailable Nirmala Barrios Attending Unavailable Nirmala Barrios Referring Unavailable Hudson, Flavoi Primary Care Unavailable Hudson, Flavio Attending Unavailable Hudson, Flavio Primary Care Unavailable Unavailable Primary Care Provider UnavailLORA Smith Attending Unavailable Allergies Allergy Classification Reported Allergen(s) Allergy Type Date of Onset Reaction(s) Facility (6 sources) Succinylcholine Drug Allergy 3 Other [facility] (1 source) Succinylcholine Drug Allergy 4 [facility] Repository Medications Current Medications Medication Drug Class(es) Dates Sig (Normalized) Sig (Original) acetaminophen 500 mg oral tablet (12 sources) Start: 02-27-2018 take 1000 mg by mouth every eight hours Acetaminophen Active 1000 MG PO EVERY 8 HOURS February 27, 2018 12:00am bisoprolol fumarate 5 mg oral tablet (9 sources) beta-Adrenergic Barby Start: 12-12-2022 take 5 mg by mouth at bedtime Bisoprolol Fumarate Active 5 MG PO AT BEDTIME January 22, 2023 12:00am Comment on above: Take by mouth daily at bedtime. COMPOUNDED PRESCRIPTION (2 sources) Start: 07-21-2009 COMPOUNDED PRESCRIPTION LEUPROLIDE 2WK 1MG/0.2ML, 2.8 ML VIAL FOR SUB-Q, USE DIRECTED 1 0 07/21/2009 Active Comment on above: LEUPROLIDE 2WK 1MG/0 .2ML, 2.8 ML VIAL FOR SUB-Q, USE DIRECTED docusate sodium 100 mg oral capsule (5 sources) Start: 02-27-2018 take 200 mg by mouth twice daily Docusate Sodium Active 200 MG PO TWICE A DAY February 27, 2018 12:00am estradiol 2 mg oral tablet (2 sources) Estrogen Start: 07-21-2009 estradiol(ESTRACE 2 MG TAB) TAKE DIRECTED 90 3 07/21/2009 Active Comment on above: TAKE DIRECTED ferrous sulfate 325 mg oral tablet (5 sources) Start: 02-27-2018 take 325 mg by mouth once daily Ferrous Sulfate Active 325 MG PO DAILY@0800 30 February 27, 2018 12:00am indapamide 1.25 mg oral tablet (2 sources) Thiazide-like Diuretic Start: 10-25-2024 take 1 tablet by mouth once daily indapamide (LOZOL) 1.25 mg tablet Take 1.25 mg by mouth once daily. 10/25/2024 Active Start: 02-20-2024 take 1.25 mg by mout h once daily Indapamide Active 1.25 MG PO daily February 20, 2024 12:00am labetalol hydrochloride 200 mg oral tablet (5 sources) beta-Adrenergic Barby Start: 08-24-2016 take 200 mg by mouth twice daily Labetalol Active 200 MG PO TWICE A DAY August 24, 2016 12:00am methylPREDNISolone 16 mg oral tablet (2 sources) Corticosteroid Start: 07-21-2009 methylprednisolon e(MEDROL 16 MG TAB) Take as directed 4 0 07/21/2009 Active Comment on above: Take as directed polyethylene glycol 3350 72673 mg powder for oral solution (5 sources) Osmotic Laxative Start: 02-27-2018 take 17 g by mouth once daily Polyethylene Glycol 3350 Active 17 GM PO DAILY February 27, 2018 12:00am progesterone 50 mg/ml injectable solution (2 sources) Progesterone Start: 07-21-2009 PROGESTERONE 50 MG/ML IM OIL USE DIRECTED 3 3 07/21/2009 Active Comment on above: USE DIRECTED quinapril (2 sources) Angiotensin Converting Enzyme Inhibitor quinapril HCl (QUINAPRIL ORAL) Take by mouth. Active quinapril HCl (Q UINAPRIL ORAL) Take by mouth. 0 Active Comment on above: Take by mouth. ramipril 5 mg oral capsule (9 sources) Angiotensin Converting Enzyme Inhibitor Start: 09-16-2024 take 1 capsule by mouth once ramipril (ALTACE) 5 mg capsule Take 1 capsule by mouth every afternoon. 09/16/2024 Active Start: 02-20-2024 take 5 mg by mouth once daily Ramipril Active 5 MG PO DAILY February 20, 2024 8:54am Start: 01-22-2023 End: 02-20-2024 take 1.25 mg by mouth once daily Ramipril Discontinued 1.25 MG PO DAILY January 22, 2023 12:00am February 20, 2024 8:55am sertraline 50 mg oral tablet (2 sources) Serotonin Reuptake Inhibitor Start: 11-04-2006 ZOLOFT 50 MG TAB Sharif e one(1) tablet daily. 0 11/04/2006 Active Comment on above: Take one(1) tablet d aily. tetracycline hydrochloride 250 mg oral capsule (2 sources) Tetracycline-class Antimicrobial Start: 07-21-2009 TETRACYCLINE 250 MG CAP TAKE DIRECTED 16 0 07/21/2009 Active Comment on above: TAKE DIRECTED valACYclovir 500 mg oral tablet (2 sources) Herpesvirus Nucleoside Analog DNA Polymerase Inhibitor, Herpes Simplex Virus Nucleoside Analog DNA Polymerase Inhibitor, Herpes Zoster Virus Nucleoside Analog DNA Polymerase Inhibitor Start: 11-03-2024 VALTREX 500 mg tabl et Take 500 mg by mouth as needed. 11/03/2024 Active Start: 02-20-2024 take 500 mg by mouth once daily Valacyclovir Active 500 MG PO daily February 20, 2024 12:00am Completed/Discontinued Medications Medication Drug Class(es) Dates Sig (Normalized) Sig (Original) acetaminophen 325 mg / oxyCODONE hydrochloride 5 mg oral tablet (6 sources) Opioid Agonist Start: 01-29-2023 End: 02-20-2024 take 1 tablet by mouth every eight hours Oxycodone-Acetamin ophen (Percocet) 5-325 mg tablet Discontinued 1 TABLET PO Q8H 20 January 29, 2023 February 20, 2024 8:55am cephalexin 500 mg oral capsule (6 sources) Cephalosporin Antibacterial Start: 01-29-2023 End: 02-20-2024 take 500 mg by mouth every twelve hours Cephalexin Discontinued 500 MG PO EVERY 12 HOURS 6 January 29, 2023 12:00am February 20, 2024 8:55am naproxen 250 mg oral tablet (12 sources) Nonsteroidal Anti-inflammatory Drug Start: 02-27-2018 End: 02-20-2024 take 250-500 mg by mouth every eight hours as needed Naproxen Discontinued 250 - 500 MG PO EVERY 8 HOURS NEEDED February 27, 2018 12:00am February 20, 2024 8:55am oxyCODONE hydrochloride 5 mg oral tablet (12 sources) Opioid Agonist Start: 02-27-2018 End: 02-20-2024 take 5-10 mg by mouth every four hours as needed Oxycodone Discontinued 5 - 10 MG PO EVERY 4 HOURS NEEDED 17 05February 27, 2018 12:00am February 20, 2024 8:55am Problems Active Problems Problem Classification Problem Date Documented Date Episodic/Chronic Asthma (1 source) Asthma; Translations: [Unspecified asthma, uncomplicated] 02-20-2024 Chronic Calculus of urinary tract (7 sources) Ureteric stone; Translations: [Calculus of ureter] Onset: 04-09-2024 01-29-2023 Episodic Essential hypertension (2 sources) Hypertensive disorder; Translations: [Essential (primary) hypertension] Onset: 03-25-2024 02-20-2024 Chronic Female infertility (2 sources) Female infertility; Translations: [Female infertility, unspecified] Onset: 12-03-2011 12-03-2011 Chronic Genitourinary symptoms and ill-defined conditions (1 source) Blood in urine; Translations: [Hematuria, unspecified] Episodic Other acquired deformities (1 source) Spondylolisthesis; Translations: [Spondylolisthesis, cervical region] 02-20-2024 Episodic Other acquired deformities (1 source) Spondylolisthesis, cervical region; Translations: [Acquired spondylolisthesis] 02-20-2024 Episodic Other congenital anomalies (2 sources) Congenital cyst of mediastinum; 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] Onset: 03-28-2024 Chronic Other female genital disorders (2 sources) Pruritus of vagina; Translations: [Other specified noninflammatory disorders of vagina] 11-04-2024 Episodic Other screening for suspected conditions (not mental disorders or infectious disease) (1 source) Encounter for screening mammogram for malignant neoplasm of breast; Translations: [Encounter for screening mammogram for malignant neoplasm of breast] Onset: 06-23-2024 Episodic Spondylosis; intervertebral disc disorders; other back problems (1 source) Spondylosis without myelopathy or radiculopathy, cervical region; Translations: [Spondylosis without myelopathy or radiculopathy, cervical region] Onset: 02-20-2024 Chronic Spondylosis; intervertebral disc disorders; other back problems (4 sources) Neck pain; Translations: [Cervicalgia] Onset: 02-20-2024 02-20-2024 Episodic Past or Other Problems Problem Classification Problem Date Documented Da te Episodic/Chronic Cardiac dysrhythmias (1 source) Palpitations; Translations: [Palpitations] Onset: 09-17-2023 Episodic Gastrointestinal hemorrhage (2 sources) Hematochezia; Translations: [Melena] Onset: 11-04-2006 11-04-2006 Episodic Results Test Name Value Interpretation Reference Range Facility BACTERIAL VAGINOSIS NAATon 0 11-04-2024 Lactobacillus crispatus+gasseri+allen ii + Gardnerella vaginalis + Atopobium vaginae rRNA JAZMINE+probe Ql (Vag fld) Not detected Normal Not detected [facility] Comment on above: Order Comment: Speci men Type: SWAB Ordering Facility: [facility] Address: [address] [place] [address] Performed By: #### Maco PRESTON, CVTV #### [facility] CLIA [id number] [address] [place] [address] [place] NO/TRICHOMONAS NAATon 0 11-04-2024 C. glabrata RNA JAZMINE+probe Ql (Vag fld) Not detected Normal Not detected [facility] Comment on above: Order Comment: Speci men Type: SWAB Ordering Facility: [facility] Address: [address] [place] [address] Performed By: #### Maco VAMP, CVTV #### [facility] CLIA [id number] [address] [place] [address] [place] No sp DNA JAZMINE+probe Ql (Vag fld) Not detected Normal Not detected [facility] Comment on above: Order Comment: Speci men Type: SWAB Ordering Facility: [facility] Address: [address] [place] [address] Result Comment: The No species group target includes C. albicans, C. tropicalis, C. parapsilosis, and C. dubliniensis. Performed By: #### Maco VAMP, CVTV #### [facility] CLIA [id number] [address] [place] [address] [place] T. vaginalis DNA JAZMINE+probe Ql (Unsp spec) Not detected Normal Not detected [facility] Comment on above: Order Comment: Speci men Type: SWAB Ordering Facility: [facility] Address: [address] [place] [address] Performed By: #### Maco VAMP, CVTV #### [facility] CLIA [id number] [address] [place] [address] [place] CNOVon 11-04-2024 CNOV Office Visit (OBGYWM ) -- JUDAH CRESPO ([id number]) 1975 F Date Time Provider Department 11/04/24 8:20 AM LORA MARQUEZ OBMARVIN During your visit today, we recorded the following information about you: Blood pressure Weight Last Period 126/76 97.5 kg 02/18/17 Lora Marquez MD 11/04/2024 8:47 AM Signed Judah Crespo is a 49 year old female who presents for problem visit for evaluation for a potential yeast infection noting 9 days of sx and treatment with Monistat for 3 days and 2 doses of diflucan 2 days apart with marginal relief. Itching both internal and external. HPI: as above since her 20's occurring with menses in her late 30's OB History No obstetric history on file. 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 Comments: Sexual Activity: Not Asked; No partner data on record Contraception: No contraception data on record PAST MEDICAL HISTORY Diagnosis Date Adjustment disorder with depressed mood PAST SURGICAL HISTORY Procedure Laterality Date DELIVERY ONLY , low cervical ENTERORRHAPHY SINGLE PERFORATION 11/13/05 MYOMECTOMY 1-4 MYOMAS W/250 GM/< ABDOMINAL APPR 1999 FAMILY HISTORY Problem Relation Age of Onset Alcohol/Drug Father Allergies Mother Allergies Sister Breast Cancer Mother Cancer Paternal Grandfather Diabetes Maternal Grandfather Social History Tobacco Use Smoking status: Never Smokeless tobacco: Never Substance Use Topics Alcohol use: Yes Comment: socially Drug use: Never Current Outpatient Medications Medication Sig bisoprolol (ZEBETA) 5 mg tablet Take by mouth daily at bedtime. quinapril HCl (QUINAPRIL ORAL) Take by mouth. estradiol(ESTRACE 2 MG TAB) TAKE DIRECTED (Patient not taking: Reported on 01/05/2023) COMPOUNDED PRESCRIPTION LEUPROLIDE 2WK 1MG/0.2ML, 2.8 ML VIAL FOR SUB-Q, USE DIRECTED (Patient not taking: Reported on 01/05/2023) methylprednisolone(MEDROL 16 MG TAB) Take as directed (Patient not taking: Reported on 01/05/2023) PROGESTERONE 50 MG/ML IM OIL USE DIRECTED (Patient not taking: Reported on 01/05/2023) TETRACYCLINE 250 MG CAP TAKE DIRECTED (Patient not taking: Reported on 01/05/2023) ZOLOFT 50 MG TAB Take one(1) tablet daily. (Patient not taking: Reported on 01/05/2023) No current facility-administered medications for this visit. Allergies As of Date: 11/04/2024 (No Known Allergies) Fully Assessed 01/05/2023 REVIEW OF SYSTEMS Abdomen: No bloating, early satiety, indigestion, or increased flatulence. No abdominal pain, nausea, vomiting, diarrhea, or constipation. Bladder: No dysuria, gross hematuria, urinary frequency, urinary urgency, or incontinence. Breast: No breast lumps, nipple d/c, overlying skin changes, redness or skin retraction. Expanded ROS: N/A Allergies and current medication updated:Yes SENSITIVE EXAM: The sensitive examination was discussed with the Patient or Patient's Authorized Pcb Design Engineer. As applicable, any other physician, advance practice provider, medical student, or other health professional student that will be observing or involved in the sensitive examination for educational or training purposes was discussed with the Patient or Authorized Pcb Design Engineer. The Patient or Authorized Pcb Design Engineer has agreed to proceed with the sensitive examination. (Sensitive examination includes inspection and/or palpation of the breasts, pelvis, prostate and anorectal regions). EXAM: LMP 02/18/2017 GENERAL: pleasant, female in no apparent distress PELVIC: external genitalia normal, normal Bartholin's glands, urethra, [place]'s glands, no vulvar lesions, no cervical lesions, good vaginal support, physiologic discharge present, normal appearing perineal body and perianal region, well estrogenized, cervix surgically absent BIMANUAL: no adnexal masses, non-tender, and uterus surgically absent ASSESSMENT AND PLAN: essentially unremarkable vulvovaginal exam ? resolving no/culture taken Assessment AND Plan Vaginal itching Itching in the vaginal area culture pending ftft> 30m Lora Marquez MD Allergies As of Date: 11/04/2024 (No Known Allergies) Date Reviewed: 11/04/2024 Reviewed by: Casey Phipps MA - Fully Assessed Reason for Visit: Vaginal Problem [117] Cmt: Burning, itching, redness Primary Visit Diagnosis:Itching in the vaginal area [N89.8] Other Visit Diagnosis:Vaginal itching [N89.8] Order(s):NO/TRICHOMON NAAT [SQCVTV] Order #: [id number] BACTERIAL VAGINOSIS NAAT [SQBVAMP] Order #: [id number] Prescriptions as of 11/04/2024 - indapamide (LOZOL) 1.25 mg tablet Take 1.25 mg by mouth once daily. - ramipril (ALTACE) 5 mg capsule Take 1 capsule by mouth every afternoon. - VALTREX 500 mg tablet Take 500 mg by mouth as needed (more content not included)... Normal [facility] SCRN MAMM (CAD)W/BEREKET BILATo n 06-05-2024 SCRN MAMM (CAD)W/BEREKET BILAT [facility] Imaging Services [address] [place], [place] [id number] SCRN MAMM (CAD)W/BEREKET BILAT MR#: [id number] Acct: [id number] Name: JUDAH CRESPO Rep #: [id number] : 1975 F 49 From: Fred fermin MD PCP: Dr. Flavio Hudson MD Status: [facility] Study: SCRN MAMM (CAD)W/BEREKET BILAT Date of Exam: 05/21 04/13 Exam# [id number] Ordering Dr: Flavio Hudson MD [id number] MAMMOGRAPHY - BILATERAL SCREENING REASON FOR EXAM: Female, 49 years old. Routine annual screening examination. PERTINENT HISTORY: Mother with breast cancer. TECHNIQUE: Digital bilateral breast bereket (3D mammographic acquisition) in the CC and MLO projections. 2-D mediolateral oblique (MLO) and craniocaudad (CC) views of both breasts were obtained. CAD: Full Field Digital Mammography with Computer Added Detection was performed. COMPARISON: Comparison is made with prior study June 03, 2023 and May 07, 2022. FINDINGS: Breast Composition: The breasts are heterogeneously dense, which may obscure small masses. There are no dominant masses or suspicious calcifications. No other significant abnormalities are identified. There has been no significant change since the prior study. BI/SCRN MAMM (CAD)W/BEREKET BILAT IMPRESSION: Stable bilateral screening mammogram. Yearly follow-up mammogram recommended. (A) ASSESSMENT CATEGORY: BIRADS Category 1: Negative. A letter regarding these results will be sent to the patient by the facility within 30 days. Approximately 10% of breast cancers are not detected by mammography. A normal mammogram should not delay biopsy of a clinically suspicious abnormality. [id number] Electronically Signed: Fred Cornelius MD at 9:08 EDT Reading Location ID and State: [facility] / [place] , Service support , CC: Dr. Flavio Hudson MD Section Cutter: Signed Normal [facility] Orthopedic Visit Reporton Orthopedic Visit Report [facility] [address] [place] [address] [address] [place], [place] [address] OFFICE VISIT Date of Service: 05/14/24 MR#: [id number] Acct: [id number] Name: JUDAH CRESPO Rep #: [id number] : 1975 Provider: Dr. Garrison Singh MD Age/Sex: 49/F Location: [facility] [email or web address] Status: Signed Intake Vital Signs 02/20/24 08:51 05/14/24 09:04 Height 5 ft 2 in 5 ft 2 in Weight: 214 lb 6 oz BMI 39.2 Intake Visit Reasons: THORACIC SPINE Chief Complaint: Cyst on Thoracic Spine Accompanied by: Self Is patient in pain?: No Allergies succinylcholine Adverse Reaction (Severe, Verified 05/14/24 09:07) Other Medications ???Medication ???Instructions ???Recorded ???Confirmed ???Type acetaminophen 500 mg tablet 1,000 mg (2 x 500 mg) PO Q8 02/27/18 05/14/24 Rx bisoprolol fumarate 5 mg tablet 5 mg PO QHS 01/22/23 05/14/24 History indapamide 1.25 mg tablet 1.25 mg PO QDAY 02/20/24 05/14/24 History ramipril 1.25 mg capsule 5 mg PO DAILY 02/20/24 05/14/24 History valacyclovir 500 mg tablet 500 mg PO QDAY 02/20/24 05/14/24 History PFSH Medical History History of kidney stones Ureteral stone Wears glasses Anxiety Alcohol use Heartburn Non-smoker Asthma Hypertension Surgical History History of dilation and curettage Previous section History of hysterectomy ( 2017) Family History Mother Cancer Breast Cancer Father COPD (chronic obstructive pulmonary disease) Grandfather Myocardial infarction Maternal Social History household members: spouse and children Smoking Status: Never smoker alcohol intake: current alcohol intake frequency: other details: Yahaira RIOJAS THORACIC SPINE Details: This documentation accurately reflects the service provided and the decisions made by me, Dr. Garrison Singh MD 05/14/24 0902. Part of today???s visit was documented by Tammie Chaney ATC, acting as scribe. JUDAH CRESPO is a 49 year old F here today for thoracic spine. Patient states she thinks there is a lump on her back. She denies any pain but states she feels a burning sensation where the lump is located. Patient describes this towards the left of the thoracic spine. Patient states the burning sensation has been off and on for about 6 weeks and states this has been occasional. Patient denies any numbness or tingling down the back at all. Patient denies any injury that might have caused this lump to appear. She states they found it when she got an MRI of the cervical spine. Patient denies any previous back surgeries. Judah saw me for cervical spine issues back in February. She had a cervical MRI which showed an incidental finding of a right paraspinal cyst at T2-3. This was further evaluated by her PCP through thoracic spine MRI and she is here to review the images. She denies any palpable swelling or significant pain but does have some burning in the region of the intrascapular area more towards the left. She denies any radiation along the ribs. She denies any increase in this pain with coughing or deep breathing. She denies any balance issues. She denies any difficulty breathing. Her neck pain is seems stable and she is anticipating epidural injection by Dr. Moreno in the near future. Ortho Exam General General: Yes no acute distress Neurologic: Yes alert and Yes oriented x3 Spine SPINE TESTING CERVICAL THORACIC LUMBAR Musculoskeletal Strength 0=absent - 5=normal Details: Exam to the upper back shows no significant spinous process or paraspinal tenderness. Neurologic motion of upper and lower extremity shows 5 x 5 follow-up shows normal sensations in all dermatomes. Coding Level of Care Code Off vis,est,level 4 Diagnoses Left-sided thoracic back pain, unspecified chronicity M54.6 Chronicity: unspecified Back pain laterality: left Thoracic cyst Time Spent (min) 35 Assessment and Plan Assessment and Plan (1) Thoracic back pain: Status: Acute Qualifiers: Chronicity: unspecified Back pain laterality: left Qualified Code(s): M54.6 - Pain in thoracic spine (2) Thoracic cyst: Status: Acute Orders: Orders Thoracic Spine 2 Views Today M54.6 - Pain in thoracic spine Plan I reviewed patient's thoracic spine done recently. Also obtain thoracic spine x-rays. There is a golf ball sized cyst in the left paraspinal region in the left side of the level of T2-3. X-rays AP x-ray of the thoracic spine suggest some radiodensity in it. MRI suggestive of a fluid-filled cyst. 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 They do not believe it is a nerve sheath tumor. Patient (more content not included)... Normal [facility] Thoracic Spine 2 Viewson Thoracic Spine 2 Views [facility] [address] [place] [address] Thoracic Spine 2 Views MR#: [id number] Acct: [id number] Name: JUDAH CRESPO Rep #: [id number] : 1975 F 49 From: Genesis welsh MD PCP: Dr. Flavio Hudson MD Status: DEP AMB Study: Thoracic Spine 2 Views Date of Exam: 05/14/24 Exam# [id number] Ordering Dr: Garrison Singh MD [id number] HISTORY: T2-3 cyst -- Please do upright AP Lat. TECHNIQUE: XR Spine Thoracic 2 Views. COMPARISON: MRI 04/10/2024. FINDINGS: VERTEBRAE: Vertebral body heights maintained. No acute fracture identified. ALIGNMENT: No significant anterior or posterior subluxation. Mild dextroscoliosis. INTERVERTEBRAL DISCS: Mild degenerative changes with osteophytes. SOFT TISSUES: 2.2 x 4.2 cm left paraspinal lesion centered at the T3 level, corresponding to the MRI findings. RAD/Thoracic Spine 2 Views IMPRESSION: No acute fracture or dislocation identified in the thoracic spine. Mild scoliosis and degenerative change. Left paraspinal lesion, corresponding to the MRI findings. Electronically Signed: Genesis Parks MD at 9:44 EDT Reading Location ID and State: [facility] / [place] Tel , Service support , CC: Dr. Garrison Singh MD; Dr. Flavio Hudson MD Section Cutter: Signed Normal [facility] Spine Thoracic W/WO Contrast on 04-10-2024 Spine Thoracic W/WO Contrast [facility] Imaging Services [address] [place], [place] [address] Spine Thoracic W/WO Contrast MR#: [id number] Acct: [id number] Name: JUDAH CRESPO Rep #: [id number] : 1975 F 49 From: Daniel Calloway MD PCP: Dr. Flavio Hudson MD Status: REG CLI Study: Spine Thoracic W/WO Contrast Date of Exam: Exam# [id number] Ordering Dr: Flavio Hudson MD ADDENDUM by Dr. 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 Nerve sheath tumor not likely due to lack of enhancement. Electronically Signed: Daniel Calloway MD at 18:59 EDT , 04/10/241858 Date cc: Dr. Flavoi Hudson MD * Signed ADDENDUM by Dr. Daniel Calloway MD on 04/10/24 at 1859 MRI/Spine Thoracic W/WO Contrast IMPRESSION: undefined 04/10/241905 Date cc: Dr. Flavio Hudson MD * Signed [id number] STUDY: MRI THORACIC SPINE WITH AND WITHOUT CONTRAST REASON FOR EXAM: Female, 49 years old. cyst, mediastinum, retrocardiac finding, F/U ABNORMAL CERVICAL MRI TECHNIQUE: IV 19 cc CLARISCAN was administered for the contrast portion of the examination. COMPARISON: None. FINDINGS: Normal kyphosis of the thoracic spine. There is no substantial scoliosis. T1-2, T2-3, T3-4, T4-5, T5-6, T6-7, T7-8, T8-9, T9-10, T10-11, T11-12: Normal endplates. Normal disc hydration, heights and morphology of the corresponding intervertebral discs. Normal central canal and intervertebral neural foramina at the corresponding levels. Normal visualized thoracic cord. 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 Otherwise normal MRI with and without contrast Electronically Signed: Daniel Calloway MD at 18:49 EDT , CC: Dr. Flavio Hudson MD Section Cutter: Signed Normal [facility] Abdomen Single Viewon 2023 Abdomen Single View [facility] Imaging Services [address] [place] [address] [id number] Abdomen Single View MR#: [id number] Acct: [id number] Name: JUDAH CRESPO Rep #: [id number] : 1975 F 49 From: Oliver madison MD PCP: Dr. Flavio Hudson MD Status: [facility] Study: Abdomen Single View Date of Exam: 03/31/24 Exam# [id number] Ordering Dr: Nirmala Barrios MD [id number] INDICATION: STONES- KUB EXAMINATION/TECHNIQUE: X-RAY - XR Abdomen 1 View COMPARISON: None FINDINGS: BOWEL GAS PATTERN: Non-obstructive. No bowel or stomach distention. FREE AIR: Not assessed on a single supine view. ORGANOMEGALY: Not seen. CALCIFICATIONS: No abnormal calcifications observed. LOWER CHEST: No acute pathology. BONES AND SOFT TISSUES: No acute pathology. RAD/Abdomen Single View IMPRESSION: No renal stones visualized. Electronically Signed: Oliver Harris MD at 1:35 EDT , CC: Dr. Flavio Hudson MD; Dr. Nirmala Barrios MD Section Cutter: Signed Normal [facility] Comprehensive Metabolic Prof ilon 03-17-2024 Albumin [Mass/Vol] 3.5 g/dL Normal 3.2-5.0 [facility] Comment on above: Order Comment: Order Date: 11/07/23Order Info: [id number] - CMPOrder Info: [id number] - LIPID Performed By: #### L 502.0250, L500.4050, L500.4100 ####[facility] [address] [place], [address] Albumin/Globulin [Mass ratio] 1.0 {ratio} Normal 0.9-2.4 [facility] Comment on above: Order Comment: Order Date: 11/07/23Order Info: [id number] - CMPOrder Info: [id number] - LIPID Performed By: #### L 502.0250, L500.4050, L500.4100 ####[facility] [address] [place], [address] ALK P 49 U/L Normal 45-117 [facility] Comment on above: Order Comment: Order Date: 11/07/23Order Info: [id number] - CMPOrder Info: [id number] - LIPID Performed By: #### L 502.0250, L500.4050, L500.4100 ####[facility] [address] [place], [address] ALT [Catalytic activity/Vol] 38 U/L Normal 13-56 [facility] Comment on above: Order Comment: Order Date: 11/07/23Order Info: [id number] - CMPOrder Info: [id number] - LIPID Performed By: #### L 502.0250, L500.4050, L500.4100 ####[facility] [address] [place], [address] AST [Catalytic activity/Vol] 18 U/L Normal 15-37 [facility] Comment on above: Order Comment: Order Date: 11/07/23Order Info: 07- - CMPOrder Info: [id number] - LIPID Performed By: #### L 502.0250, L500.4050, L500.4100 ####[facility] [address] [place], [address] Bilirubin [Mass/Vol] 0.50 mg/dL Normal 0.20-1.00 [facility] Comment on above: Order Comment: Order Date: 11/07/23Order Info: [id number] - CMPOrder Info: [id number] - LIPID Result Comment: For patients on eltrombopag therapy, use of Dimension [place] TBIL is not recommended. Performed By: #### L 502.0250, L500.4050, L500.4100 ####[facility] [address] [place], [address] BUN/CRE 16.6 RATIO Normal 10-20 [facility] Comment on above: Order Comment: Order Date: 11/07/23Order Info: 0786 - CMPOrder Info: [id number] - LIPID Performed By: #### L 502.0250, L500.4050, L500.4100 ####[facility] [address] [place], [address] CA,Total 9.4 mg/dL Normal 8.5-10.1 [facility] Comment on above: Order Comment: Order Date: 11/07/23Order Info: [id number] - CMPOrder Info: [id number] - LIPID Performed By: #### L 502.0250, L500.4050, L500.4100 ####[facility] [address] [place], [address] Chloride [Moles/Vol] 107 mmol/L Normal 98-107 [facility] Comment on above: Order Comment: Order Date: 11/07/23Order Info: [id number] - CMPOrder Info: [id number] - LIPID Performed By: #### L 502.0250, L500.4050, L500.4100 ####[facility] [address] [place], [address] CO2 [Moles/Vol] 23.0 mmol/L Normal 21.0-32.0 [facility] Comment on above: Order Comment: Order Date: 11/07/23Order Info: 07- - CMPOrder Info: [id number] - LIPID Performed By: #### L 502.0250, L500.4050, L500.4100 ####[facility] [address] [place], [address] Creatinine [Mass/Vol] 0.90 mg/dL Normal 0.55-1.02 [facility] Comment on above: Order Comment: Order Date: 11/07/23Order Info: [id number] - CMPOrder Info: [id number] - LIPID Result Comment: The validity of the calculated GFR GFRAA in patients over 70 years has not been determined. Clinical correlation is essential. Performed By: #### L 502.0250, L500.4050, L500.4100 ####[facility] [address] [place], [address] EST GFR - AA 86 mL/min Normal >60 [facility] Comment on above: Order Comment: Order Date: 11/07/23Order Info: [id number] - CMPOrder Info: [id number] - LIPID Result Comment: Afri can Sudanese GFR Calc Performed By: #### L 502.0250, L500.4050, L500.4100 ####[facility] [address] [place], [address] GAP 8 Normal 5-15 [facility] Comment on above: Order Comment: Order Date: 11/07/23Order Info: [id number] - CMPOrder Info: [id number] - LIPID Performed By: #### L 502.0250, L500.4050, L500.4100 ####[facility] [address] [place], [address] GFR/1.73 sq M.predicted among non-blacks MDRD (S/P/Bld) [Vol rate/Area] 71 mL/min/{1.73_m2} Normal >60 [facility] Comment on above: Order Comment: Order Date: 11/07/23Order Info: [id number] - CMPOrder Info: [id number] - LIPID Result Comment: Non- GFR Calc Performed By: #### L 502.0250, L500.4050, L500.4100 ####[facility] [address] [place], [address] Globulin (S) [Mass/Vol] 3.5 g/dL Normal 2.2-4.2 [facility] Comment on above: Order Comment: Order Date: 11/07/23Order Info: [id number] - CMPOrder Info: [id number] - LIPID Performed By: #### L 502.0250, L500.4050, L500.4100 ####[facility] [address] [place], [address] Glucose [Mass/Vol] 110 mg/dL High 74-106 [facility] Comment on above: Order Comment: Order Date: 11/07/23Order Info: [id number] - CMPOrder Info: [id number] - LIPID Result Comment: Fast ing Glucose result from 100 to 125 mg/dL suggests IMPAIRED HOMEOSTASIS per A.D.A. criteria. Performed By: #### L 502.0250, L500.4050, L500.4100 ####[facility] [address] [place], [address] Potassium [Moles/Vol] 4.0 mmol/L Normal 3.5-5.1 [facility] Comment on above: Order Comment: Order Date: 11/07/23Order Info: [id number] - CMPOrder Info: [id number] - LIPID Performed By: #### L 502.0250, L500.4050, L500.4100 ####[facility] [address] [place], [address] Sodium [Moles/Vol] 138 mmol/L Normal 136-145 [facility] Comment on above: Order Comment: Order Date: 11/07/23Order Info: 785- - CMPOrder Info: [id number] - LIPID Performed By: #### L 502.0250, L500.4050, L500.4100 ####[facility] [address] [place], [address] T PROT 7.0 g/dL Normal 6.4-8.2 [facility] Comment on above: Order Comment: Order Date: 11/07/23Order Info: 0786- - CMPOrder Info: [id number] - LIPID Performed By: #### L 502.0250, L500.4050, L500.4100 ####[facility] [address] [place], [address] Urea nitrogen [Mass/Vol] 15 mg/dL Normal 7-18 [facility] Comment on above: Order Comment: Order Date: 11/07/23Order Info: 0786- - CMPOrder Info: [id number] - LIPID Performed By: #### L 502.0250, L500.4050, L500.4100 ####[facility] [address] [place], [address] Lipid Profileon 03-17-2024 Cholesterol [Mass/Vol] 210 mg/dL High 200 [facility] Comment on above: Order Comment: Order Date: 11/07/23Order Info: 0786-1 - CMPOrder Info: [id number] - LIPID Result Comment: <200 mg/dL Desirable 200-240 mg/dL Borderline >240 mg/dL High Risk Performed By: #### L 502.0250, L500.4050, L500.4100 ####[facility] [address] [place], [address] Cholesterol in HDL [Mass/Vol] 49 mg/dL Normal [facility] Comment on above: Order Comment: Order Date: 11/07/23Order Info: 0786- - CMPOrder Info: [id number] - LIPID Result Comment: The drugs N-Acetylcysteine and Metamizole may falsely depress this assay. Reference Range HDL <40 mg/dL Low HDL Cholesterol HDL >or= 60 mg/dL High HDL Cholesterol Performed By: #### L 502.0250, L500.4050, L500.4100 ####[facility] [address] [place], [address] Cholesterol in LDL [Mass/Vol] 126 mg/dL Normal 0-130 [facility] Comment on above: Order Comment: Order Date: 11/07/23Order Info: 0786 - CMPOrder Info: [id number] - LIPID Performed By: #### L 502.0250, L500.4050, L500.4100 ####[facility] [address] [place], [address] Cholesterol in VLDL [Mass/Vol] 35 mg/dL Normal 5-40 [facility] Comment on above: Order Comment: Order Date: 11/07/23Order Info: 0786 - CMPOrder Info: [id number] - LIPID Performed By: #### L 502.0250, L500.4050, L500.4100 ####[facility] [address] [place], [address] Triglyceride [Mass/Vol] 174 mg/dL Normal [facility] Comment on above: Order Comment: Order Date: 11/07/23Order Info: 0786- - CMPOrder Info: [id number] - LIPID Result Comment: The drugs N-Acetylcysteine and Metamizole may falsely depress this assay. Serum Triglycerides Reference Interval Normal <150 mg/dL Borderline high 150 - 199 mg/dL High 200 - 499 mg/dL Very High > or = 500 mg/dL Performed By: #### L 502.0250, L500.4050, L500.4100 ####[facility] [address] [place], [address] Microalb:Creat Ratio,Random URon 03-17-2024 Creatinine [Mass/Vol] 194.00 mg/dL Normal NO RAN GE EST. [facility] Comment on above: Order Comment: Order Date: 11/07/23Order Info: [id number] - MIACRE Performed By: #### L 502.0250, L500.4050, L500.4100 ####[facility] [address] [place], [address] MALB:CRE 7.1 mg/g CRE Normal <30 mg/g CRE [facility] Comment on above: Order Comment: Order Date: 11/07/23Order Info: [id number] - MIACRE Performed By: #### L 502.0250, L500.4050, L500.4100 ####[facility] [address] [place], [address] MICROALBUMIN,UR 13.7 mg/L Normal NO RANGE EST. [facility] Comment on above: Order Comment: Order Date: 11/07/23Order Info: [id number] - MIACRE Performed By: #### L 502.0250, L500.4050, L500.4100 ####[facility] [address] [place], [address] Cerv Spine 4 or 5 Viewson Cerv Spine 4 or 5 Views [facility] [address] [place] [address] Cerv Spine 4 or 5 Views MR#: [id number] Acct: [id number] Name: JUDAH CRESPO Rep #: [id number] : 1975 F 49 From: Baldo Davis MD PCP: Dr. Flavio Hudson MD Status: DEP AMB Study: Cerv Spine 4 or 5 Views Date of Exam: 02/20/24 Exam# [id number] Ordering Dr: Garrison Singh MD [id number] STUDY: X-RAY - CERVICAL SPINE REASON FOR EXAM: Female, 49 years old. Neck pain. TECHNIQUE: 4 upright view(s) of the cervical spine, including lateral flexion and extension views, were obtained. COMPARISON: None FINDINGS: Normal anterior atlantoaxial articulation. Normal odontoid process. Slight reversal of the normal lordosis, likely positional. Diffuse moderate uncovertebral and facet sclerosis. Normal vertebral alignment. Normal flexion, limited extension and no abnormal motion. Intervertebral disc space narrowing at C5-6, C6-7 and C7-T1, most marked at C6-7. Ossification of the ligamentum nuchae. RAD/Cerv Spine 4 or 5 Views IMPRESSION: Reversal of the normal lordotic curve, moderate uncovertebral and facet sclerosis, intervertebral disc degeneration at C5-6 through C7-T1, most marked at C6-7. Normal flexion with limited extension and no abnormal motion. Electronically Signed: Baldo Davis MD at 9:42 EDT Reading Location ID and State: [facility] / [place] , Service support , CC: Dr. Garrison Singh MD; Dr. Flavio Hudson MD Section Cutter: Signed Normal [facility] Orthopedic Visit Reporton Orthopedic Visit Report [facility] [address] [place] [address] OFFICE VISIT Date of Service: 02/20/24 MR#: [id number] Acct: [id number] Name: ZAKJUDAH TONY Rep #: [id number] : 1975 Provider: Dr. Garrison Singh MD Age/Sex: 49/F Location: [facility] Status: Signed Intake Vital Signs 01/29/23 06:43 02/20/24 08:51 Height 5 ft 2 in 5 ft 2 in Weight: 216 lb 4 oz BMI 39.5 Intake Visit Reasons: CERVICAL SPINE Accompanied by: Self Is patient in pain?: Yes Pain scale (1-10): 3 Allergies succinylcholine Adverse Reaction (Severe, Verified 02/20/24 08:54) Other Medications acetaminophen 500 mg tablet 1,000 mg (2 x 500 mg) PO Q8 02/27/18 [Rx Confirmed 01/22/23] bisoprolol fumarate 5 mg tablet 5 mg PO QHS 01/22/23 [History Confirmed 02/20/24] indapamide 1.25 mg tablet 1.25 mg PO QDAY 02/20/24 [History Confirmed 02/20/24] ramipril 1.25 mg capsule 5 mg PO DAILY 02/20/24 [History Confirmed 02/20/24] valacyclovir 500 mg tablet 500 mg PO QDAY 02/20/24 [History Confirmed 02/20/24] [facility] Medical History (Updated 02/20/24 @ 09:[address] Garrison Singh MD) Alcohol use Anxiety Asthma Heartburn History of kidney stones Hypertension Non-smoker Ureteral stone Wears glasses Surgical History (Updated 01/22/23 @ 13:29 by Corina Silver) History of dilation and curettage History of hysterectomy ( 2017) Previous section Family History (Updated 02/20/24 @ 08:58 by Shi Smith MA) Mother Cancer Breast Cancer Father COPD (chronic obstructive pulmonary disease) Grandfather Myocardial infarction Maternal Social History (Updated 02/20/24 @ 08:58 by Shi Smith MA) household members: spouse and children Smoking Status: Never smoker alcohol intake: current alcohol intake frequency: other details: Yahaira RIOJAS CERVICAL SPINE Details: This documentation accurately reflects the service provided and the decisions made by me, Dr. Garrison Singh MD 02/20/24 0851. Part of today???s visit was documented by Shi GARNICA , acting as scribe. JUDAH CRESPO is a 49 year old F here today for Cervical Pain. Patient states that her neck has been bothering her for about 6 months. Patient states no injury to it. Patient declines any pain or radiation or numbness that goes down her arms. Patient hasn't had any injections in her neck. 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 Patient states that her pain is lower right and the side of the neck. Patient did have a MRI done earlier this week. Patient uses heat to help relax her neck, but she states that the pain doesn't go away. Patient takes Naproxen or Advil when she can't tolerate the pain anymore. Patient states her pain is a constantly 3 and when it goes to a 4 that is when she takes the Naproxen. Judah has had 6 months of axial neck pain which has been right paraspinal region from the mid neck to the lower neck region. She denies any left-sided symptoms. She denies any radiation of pain or tingling numbness in the upper extremities although she does have occasional tingling in the radial 3 digits in both hands when she wakes up in the morning. The numbness does not seem to bother her. Her axial pain does affect her range of motion to some extent. 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 She denies any dexterity issues in the hands or any balance problems. She is nondiabetic. She denies any upper back pain. Ortho Exam General General: Yes no acute distress Neurologic: Yes alert and Yes oriented x3 Spine SPINE TESTING CERVICAL THORACIC LUMBAR Musculoskeletal Strength 0=absent - 5=normal Details: Examination of the neck shows right paraspinal tenderness in lower cervical region. Neurologic evaluation of upper extremity shows 5 x 5 power normal shows normal sensations in all dermatomes. Emili's negative. Romberg's is negative. There is no gait imbalance. There is no hyperreflexia lower extremities. Coding Level of Care Code Off vis,new,level 4 Diagnoses Spondylolisthesis, cervical region M43.12 Time Spent (min) 45 Assessment and Plan Assessment and Plan (1) Spondylolisthesis, cervical region: Status: Acute Orders: Orders Cerv Spine 4 or 5 Views Today M54.2 - Cervicalgia Referrals Pain Management M47.812 - Spondylosis without myelopathy or radiculopathy, cervical region Plan I obtained x-rays of cervical spine today in the clinic. These show C4-5 spondylolisthesis with dynamic instability on flexion-extension views. MRI shows mild disc bulges without any significant central or foraminal stenosis. Her upright x-rays show loss of cervical lordosis. She has an incidental finding of a left paravertebral cystic lesion in the upper thoracic spine o (more content not included)... Normal [facility] Spine Cervical (Routine)on 0 02-17-2024 Spine Cervical (Routine) [facility] Imaging Services [address] [place] [address] Spine Cervical (Routine) MR#: [id number] Acct: [id number] Name: JUDAH CRESPO Rep #: [id number] : 1975 F 49 From: Genesis welsh MD PCP: Dr. Flavio Hudson MD Status: [facility] Study: Spine Cervical (Routine) Date of Exam: Exam# [id number] Ordering Dr: Flavio Hudson MD [id number] HISTORY: Cervicalgia, radiculopathy, right lower neck/upper back pain x 6 months, no injury. TECHNIQUE: Multiplanar and multisequence MR images of the cervical spine were obtained without contrast. 558 images. COMPARISON: None. FINDINGS: VERTEBRAE: Vertebral body heights maintained. Mild degenerative bone marrow endplate changes of C4-5 and C6-7. VERTEBRAL ALIGNMENT: Straightening of the cervical lordosis without anterior or posterior subluxation. SPINAL CORD: Cervical cord signal and morphology within normal limits. SOFT TISSUES: No cervical prevertebral fluid collection. Incompletely imaged 3.5 cm paraspinal cyst at the left T3-4 level. INTERVERTEBRAL DISCS: C2-3, C3-4: No significant posterior disc protrusion, central canal stenosis, or foraminal narrowing. C4-5: Very mild disc bulge with uncovertebral arthropathy and right facet arthritis resulting in minimal narrowing of the thecal sac and mild right foraminal narrowing. C5-6: Very mild disc bulge resulting in minimal narrowing of the thecal sac. No significant foraminal narrowing. C6-7: Mild posterior disc bulge osteophyte complex resulting in minimal narrowing of the thecal sac. No significant foraminal narrowing. C7-T1: No significant posterior disc protrusion, central canal stenosis, or foraminal narrowing. MRI/Spine Cervical (Routine) IMPRESSION: Mild disc bulges of the cervical spine without significant spinal canal stenosis. Mild right foraminal narrowing of C4-5. 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 Recommend follow-up MRI thoracic spine without and with contrast or CT chest with contrast. Electronically Signed: Genesis Parks MD at 15:04 EDT , CC: Dr. Flavio Hudson MD Section Cutter: Signed Normal [facility] PT D/C Summary (1)on PT D/C Summary (1) [facility] Physical Therapy [facility] [address] [place] [address] / REHABILITATION SERVICES DISCHARGE SUMMARY MR#: [id number] Acct: [id number] Name: JUDAH CRESPO Rep #: [id number] : 1975 48 From: Nicola Whalen DPT Referring Dr.: Dr. Flavio Hudson MD Status: REG R CR Insurance: [facility] SELF PAY INSURANCE Discharge Summary D/C summary: It has been my pleasure to treat JUDAH CRESPO referred by Dr. Flavio Hudson MD, with the diagnosis of Cervical Spine for a total of 8 visit(s). Discharge Date: 12/12/23 Please see the following information for a summary of their discharge status. Subjective Subjective: Pt. reports having 3-4/10 pain at rest, but does go up to about 6/10 with activities. Pt. doers have some N/T mostly with sleeping. Pain Cervical: Pain Intensity (Out of 10): 3 Overall Improvement % Improvement: 0 Objective Objective/Function: Pt. reports continues to have increased pain in the AMs, then is pretty steady as the day goes on. She does report bilateral N/T in her thumb, index finger and middle finger of BUEs as night (only at night). ROM: B shoulders: full ROM without increase in symptoms. CERVICAL SPINE: AROM flexion nil loss NE, ext nil loss NE, rotation L nil loss NE, rotation R min loss increase NW, SB nil loss bilat NE. Pt. did have full ROM of cervical spine without increase in symptoms. Pt. has no myotomal weakness. She had negative testing with compression. I was not able to elicit any distal neuro symptoms. She continues to be tender along insertion of levator scap at R side of cervical spine. Pt. reports minimal progress at this point in time. I am recommending that she follow back up with physician at this point in time. She has tried traction, manual therapy, stretching, US without any lasting relief. She reports nothing really effected her initial symptoms. I was not able to increase or reduce her neck pain except with levator scap stretching. She reports this made it worse when tried previously. Her symptoms do not seem to be discogenic in nature but more muscular. With that being said I would have expected her symptoms to be better with what was tried. I am referring her back to physician at this point in time. Goals Goal 1:: Patient will report participation in home exercise program activities a minimum of 5 days per week, as adjunct to skilled physical therapy intervention in preparation for independent home management upon discharge. Goal Progress: Progressing Goal 2:: Patient will maintain proper posture t/o tx session to demo increased scap s/s Goal Progress: Progressing Goal 3:: Patient will demo full AROM of the cervical spine without pain Goal Progress: Not Progressing Goal 4:: Patient will report 80% improvement Goal Progress: Not Progressing Plan Plan: DC back to physician further further evaluation. D/C Information Discharge Comments: Pt. will be DC from PT at this point in time. We tried manual therapy, traction, US and massage. She has not had much relief with Pt thus far. I advised her to continue with some of the exercises, but to also follow up with her physician for further evaluation. d/c sentence: If there are questions or concerns regarding this patient's physical therapy, please feel free to call me at [phone]. Thank you for the referral of this patient. Sincerely, Nicola Fraga Sipos, DPT Balance/Gait/Functional tests Balance/Special Test Scores Oswestry Neck Score: 7 Improvement % Improvement: 0 12/12/23 3637 CC: Dr. Flavio Hudson MD CLS Signed Normal [facility] Inital Evaluation (1) - PTon 11-11-2023 Inital Evaluation (1) - PT [facility] [address] [place] [address] / REHABILITATION SERVICES INITIAL EVALUATION MR#: [id number] Acct: [id number] Name: JUDAH CRESPO Rep #: [id number] : 1975 48 From: Daly Billingsley DPT Referring Dr.: Dr. Flavio Hudson MD Status: REG R CR Insurance: [facility] SELF PAY INSURANCE Patient's Visit Information Visit Information Visit Information: JUDAH CRESPO is a 48 year old F referred to Physical Therapy by Dr. Flavio Hudson MD with a diagnosis of Cervical Spine. Date of Evaluation: 11/11/23 Physical Therapist: Daly Billingsley DPT Visit Plan Frequency: 2x /Week Duration: 4 Weeks Plan: Postural correction Modality: Cervical Traction- manual prior to mechanical- US and TENS PRN HEP Given IE: scapular retraction, chin tucks, postural education Subjective Subjective: She reports pain in neck on the right side for a few months- insidious onset- tried chiro, heat, massage gun- nothing really has changed the pain. Pain is located toward the back and off to the side- the pain is always there and she does have pain in the shoulder joints- mom has RA so she is unsure if she is getting some of that but mostly just in the neck. Describes the pain as dull and achy- constant. Pain is sharp if she side bends to the right. Worst: 5/10 Agg: SB to the right, SB to the left, catches with movement, worse in the AM Eases: nothing Best: .5/10. During the night she will wake up the thumb and first 2 fingers on both sides are numb- never the same side together- if she moves around the numbness goes away and never during the day. Sleep: side sleeper. She has tried different pillows. Neck rarely wakes her up. Not sure what wakes her up at night- she wakes up every other night 1-2x a night. That is not new. She has 4 kids (05/02/17). 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 She has not had any x-rays or MRI on the neck. She had upper back pain on her left side- she has therapy for that- chiro- that got better and has been gone for several months- adjustments and exercise for that. She has no blurred vision or dizziness. Does have SALAZAR and nausea from the pain. SALAZAR- 2x a week- start in the occiput and come up but not over the top of the skull. She feels that pain is staying the same. PMHx/Meds: see list in chart. Objective Objective: Posture: forward head, rounded shoulders- can correct but does not maintain Gait: good arm swing and trunk rotation ROM:Cervical spine: Flexion: WFL does have pain with end range, Extn: WFL does have pain with end range, SB: WFL pain and report tight bilateral right >left, Rotation: right: 40 with pain Left: 50 Shoulder: WFL pain with right Elbow/Wrist/Hand: WNL Strength: Cervical: Isometric: 4+/5 with discomfort in all planes, Shoulder: 5/5 throughout, Scap: fair minus Palpation: shoulder: not tender, right cervical: tightness noted but not tender Special Test: distraction: decreased pain, Increased discomfort with SB to the left/slight flexion Flex: UT: moderate, Levator: severe Balance/Special Test Scores Oswestry Neck Score: 7 Goals Goal 1:: Patient will report participation in home exercise program activities a minimum of 5 days per week, as adjunct to skilled physical therapy intervention in preparation for independent home management upon discharge. Goal Time Frame: 4-6 Weeks Goal 2:: Patient will maintain proper posture t/o tx session to demo increased scap s/s Goal Time Frame: 4-6 Weeks Goal 3:: Patient will demo full AROM of the cervical spine without pain Goal Time Frame: 4-6 Weeks Goal 4:: Patient will report 80% improvement Goal Time Frame: 4-6 Weeks Rehabilitation Potential Physical Therapy Diagnosis: Patient presents with hypomobility- she has decreased scapular strength/stabilization, pain free ROM, and increased pain Rehabilitation Potential: Good Anticipated Interventions Patient/Client Instruction: Educate patient on: Benefits of Fitness Program Therapeutic Exercise to Include: Strength training, Endurance training, Coordination, Body mechanics, Postural training, Neuromotor development and Scapular Strength/Stabilization Manual Therapy Techniques to Include: Mobilization and Soft tissue mobilization TENS: Yes Cryotherapy (ice pack, ice massage): Yes Thermo therapy (hot pack): Yes Ultrasound (thermal/non thermal): Yes Intermittent cervical traction: Yes (Manual First) Text: Thank you for the opportunity to evaluate your patient. For Medicare and Medicare HMO plans, please review the plan of care and approve it. It will need to be FAXED BACK to us at [phone] for Medicare purposes. For Medicare only, by signing this I certify the plan of care. Please let me know if there are questi (more content not included)... [facility] 5-HIAA 24 HR URon 09-25-2023 5-HIAA, Urine TNP Normal [facility] Comment on above: Order Comment: Order Date: 08/29/23Order Info: 1763-2 - ALDOSOrder Info: [id number] - DHEA-SOrder Info: [id number] - RENOrder Info: [id number] - CORTUComments: AM bloodAM bloodN Performed By: #### L 3600.1100, L502.000, L3600.2500 ####[facility] [address] [place], [address] 5-HIAA,U, 24 HR TNP Normal [facility] Comment on above: Order Comment: Order Date: 08/29/23Order Info: 1763-2 - ALDOSOrder Info: [id number] - DHEA-SOrder Info: 2917 - RENOrder Info: [id number] - CORTUComments: AM bloodAM bloodN Performed By: #### L 3600.1100, L502.000, L3600.2500 ####[facility] [address] [place], [address] Aldosterone, Serumon 023 ALDOSTERONE,S Normal [facility] Comment on above: Order Comment: Order Date: 08/29/23 Order Info: 1763-2 - ALDOS Order Info: [id number] - DHEA-S Order Info: 2915-04 Order Info: [id number] - CORTU Comments: AM blood AM blood N Result Comment: TEST RESULTS LIMITS Aldosterone A, 6.6 ng/dL 0.0-30.0 Comments A: This test was developed and its performance characteristics determined by [facility]. It has not been cleared or approved by the Food and Drug Administration. TESTING PERFORMED AT [facility]. ORIGINAL REPORT ON FILE IN LAB CONTAINS ADDITIONAL TEST SITE INFORMATION. Performed By: #### L 3400.4000, L3300.1500, L100.0100, L3600.5400, L500.4050, L3300.1100 #### [facility] [address] [place], [address] Cortisol, 24 HR UR Freeon CORTISOL,F/24hr TNP Normal [facility] Comment on above: Order Comment: Order Date: 08/29/23Order Info: [id number] - ALDOSOrder Info: [id number] - DHEA-SOrder Info: 2915-04 - RENOrder Info: [id number] - CORTUComments: AM bloodAM bloodN Performed By: #### L 3400.4000, L3300.1500, L100.0100, L3600.5400, L500.4050, L3300.1100 ####[facility] [address] [place], [address] CORTISOL,U FREE TNP Normal [facility] Comment on above: Order Comment: Order Date: 08/29/23Order Info: [id number] - ALDOSOrder Info: [id number] - DHEA-SOrder Info: 2915-04 - RENOrder Info: [id number] - CORTUComments: AM bloodAM bloodN Performed By: #### L 3400.4000, L3300.1500, L100.0100, L3600.5400, L500.4050, L3300.1100 ####[facility] [address] [place], [address] DHEA Sulfateon 09-25-2023 DHEA SULFATE Normal [facility] Comment on above: Order Comment: Order Date: 08/29/23 Order Info: 1762-11 - ALDOS Order Info: [id number] - DHEA-S Order Info: 2915-04 Order Info: [id number] - CORTU Comments: AM blood AM blood N Result Comment: TEST RESULTS LIMITS DHEA-Sulfate 99.2 ug/dL 41.2-243.7 TESTING PERFORMED AT [facility]. ORIGINAL REPORT ON FILE IN LAB CONTAINS ADDITIONAL TEST SITE INFORMATION. Performed By: #### L 3400.4000, L3300.1500, L100.0100, L3600.5400, L500.4050, L3300.1100 #### [facility] [address] [place], [address] Metanephrine Frac 24 HR URon 09-25-2023 Metaneph,UR 24H TNP Normal [facility] Comment on above: Order Comment: Order Date: 08/29/23Order Info: 1762-11 - ALDOSOrder Info: [id number] - DHEA-SOrder Info: 2915-04 - RENOrder Info: [id number] - CORTUComments: AM bloodAM bloodN Performed By: #### L 3600.1100, L502.000, L3600.2500 ####[facility] [address] [place], [address] Metanephrines,U TNP Normal [facility] Comment on above: Order Comment: Order Date: 08/29/23Order Info: 3-2 - ALDOSOrder Info: [id number] - DHEA-SOrder Info: 2915-04 - RENOrder Info: [id number] - CORTUComments: AM bloodAM bloodN Performed By: #### L 3600.1100, L502.000, L3600.2500 ####[facility] [address] [place], [address] Normetan,UR 24h TNP Normal [facility] Comment on above: Order Comment: Order Date: 08/29/23Order Info: 1762-2 - ALDOSOrder Info: [id number] - DHEA-SOrder Info: 2915-04 - RENOrder Info: [id number] - CORTUComments: AM bloodAM bloodN Performed By: #### L 3600.1100, L502.000, L3600.2500 ####[facility] [address] [place], [address] Normetanephrine TNP Normal [facility] Comment on above: Order Comment: Order Date: 08/29/23Order Info: 1762-2 - ALDOSOrder Info: [id number] - DHEA-SOrder Info: 2915-04 - RENOrder Info: [id number] - CORTUComments: AM bloodAM bloodN Performed By: #### L 3600.1100, L502.000, L3600.2500 ####[facility] [address] [place], [address] Renin, Plasmaon 09-25-2023 RENIN, PLASMA Normal [facility] Comment on above: Order Comment: Order Date: 08/29/23Order Info: 1762-2 - ALDOSOrder Info: [id number] - DHEA-SOrder Info: 2915-04 - RENOrder Info: [id number] - CORTUComments: AM bloodBAIRON bloodN Result Comment: TEST RESULTS LIMITS Renin Activity, Plasma A, 1.655 ng/mL/hr 0.167-5.380 Comments A: This test was developed and its performance characteristics determined by [facility]. It has not been cleared or approved by the Food and Drug Administration. TESTING PERFORMED AT [facility]. ORIGINAL REPORT ON FILE IN LAB CONTAINS ADDITIONAL TEST SITE INFORMATION. Performed By: #### L 3400.4000, L3300.1500, L100.0100, L3600.5400, L500.4050, L3300.1100 ####[facility] [address] [place], [address] 5-HIAA 24 HR URon 09-15-2023 5-HIAA, Urine 2.0 mg/L Normal Undefined [facility] Comment on above: Order Comment: Test( s) 459581-Mxdyvldfzqngthw, Ur; 473063-Ndugdpvgdkam, Urwas developed and its performance characteristicsdetermined by [facility]. It has not been cleared or approvedby the Food and Drug Administration. Result Comment: This test was developed and its performance characteristics determined by [facility]. It has not been cleared or approved by the Food and Drug Administration. Performed By: #### L 3600.1100, L3600.5400, L3600.2500 ####[facility] [address] [place], [address] 5-HIAA,U, 24 HR 3.6 mg/24 hr Normal 0.0-14.9 [facility] Comment on above: Order Comment: Test( s) 011558-Xiwazdojdtkeotj, Ur; 188774-Nqdsvncrrbpe, Urwas developed and its performance characteristicsdetermined by [facility]. It has not been cleared or approvedby the Food and Drug Administration. Performed By: #### L 3600.1100, L3600.5400, L3600.2500 ####[facility] [address] [place], [address] Cortisol, 24 HR UR Freeon CORTISOL,F/24hr 11 ug/24 hr Normal 6-42 [facility] Comment on above: Order Comment: Test( s) 485280-Aumcwnepvojpvna, Ur; 710295-Qrqzmczhhiim, Urwas developed and its performance characteristicsdetermined by [facility]. It has not been cleared or approvedby the Food and Drug Administration. Result Comment: Perf ormed at: - [facility] [id number] Claims Customer Service Representative: Wilner Joya MD, Phone: [phone] Performed By: #### L 3600.1100, L3600.5400, L3600.2500 ####[facility] [address] [place], [address] CORTISOL,U FREE 6 ug/L Normal Undefined [facility] Comment on above: Order Comment: Test( s) 370569-Toxtgvlyildpqsc, Ur; 361747-Yzuyyetxusti, Urwas developed and its performance characteristicsdetermined by [facility]. It has not been cleared or approvedby the Food and Drug Administration. Performed By: #### L 3600.1100, L3600.5400, L3600.2500 ####[facility] [address] [place], [address] Metanephrine Frac 24 HR URon 09-15-2023 Metaneph,UR 24H 65 ug/24 hr Normal 36-209 [facility] Comment on above: Order Comment: Test( s) 327797-Wsywldeilwboisa, Ur; 655278-Wpmimfqadhhe, Urwas developed and its performance characteristicsdetermined by [facility]. It has not been cleared or approvedby the Food and Drug Administration. Performed By: #### L 3600.1100, L3600.5400, L3600.2500 ####[facility] [address] [place], [address] Metanephrines,U 36 ug/L Normal Undefined [facility] Comment on above: Order Comment: Test( s) 181994-Exxvdhurwfsxjfo, Ur; 823030-Ijtkvmtentgk, Urwas developed and its performance characteristicsdetermined by [facility]. It has not been cleared or approvedby the Food and Drug Administration. Performed By: #### L 3600.1100, L3600.5400, L3600.2500 ####[facility] [address] [place], [address] Normetan,UR 24h 227 ug/24 hr Normal 131-612 [facility] Comment on above: Order Comment: Test( s) 151359-Rgstlxcfdkdiylj, Ur; 478229-Mesjboukzlne, Urwas developed and its performance characteristicsdetermined by [facility]. It has not been cleared or approvedby the Food and Drug Administration. Performed By: #### L 3600.1100, L3600.5400, L3600.2500 ####[facility] [address] [place], [address] Normetanephrine 126 ug/L Normal Undefined [facility] Comment on above: Order Comment: Test( s) 423880-Wtpnqyhiajgrztw, Ur; 306397-Xfukpeyqkrxn, Urwas developed and its performance characteristicsdetermined by [facility]. It has not been cleared or approvedby the Food and Drug Administration. Performed By: #### L 3600.1100, L3600.5400, L3600.2500 ####[facility] [address] [place], [address] 24 hour urine 5-hydroxyindol eacetate measurement (mass/volume)Ordered By: Flavio Hudson on 09-11-2023 5-Hydroxyindoleacetate (24H U) [Mass/Vol] 2.0 mg/L Undefined [facility] Comment on above: This test was develo ped and its performance characteristicsdetermined by [facility]. It has not been cleared orapproved by the Food and Drug Administration. 24 hour urine 5-hydroxyindol eacetic acid (5-HIAA) measurement (mass/time)Ordered By: Flavio Hudson on 09-11-2023 5-Hydroxyindoleacetate (24H U) [Mass/Time] 3.6 mg/24 hr 0.0-14.9 [facility] 24 hour urine free cortisol measurement (mass/time)Ordered By: Flavio Hudson on 09-11-2023 Cortisol Free (24H U) [Mass/Time] 11 ug/24 hr 6-42 [facility] Comment on above: Performed at: [address] [id number] Director: Wilner Joya MD, Phone: [phone] 24 hour urine normetanephrin e measurement (mass/time)Ordered By: Flavio Hudson on 09-11-2023 Normetanephrine (24H U) [Mass/Time] 227 ug/24 hr 131-612 [facility] No Panel InformationOrdered By: Flavio Hudson on 09-11-2023 Urine Metanephrines 24 Hour 65 ug/24 hr 36-209 [facility] Urine Normetanephrine 126 ug/L Undefined [facility] Quantitative urine free catalina isol measurement (mass/volume)Ordered By: Flavio Hudson on 09-11-2023 Cortisol Free (U) [Mass/Vol] 6 ug/L [facility] Urine metanephrine measureme nt (mass/volume)Ordered By: Flavio Hudson on 09-11-2023 Metanephrine (U) [Mass/Vol] 36 ug/L [facility] 24 HR Urine Creatinineon UR COLLECT TIME 24.0 HOURS Normal 24.0 [facility] Comment on above: Performed By: #### L 3600.1100, L502.000, L3600.2500 ####[facility] [address] [place], [address] UR TOTAL VOLUME 1.20 Normal [facility] Comment on above: Performed By: #### L 3600.1100, L502.000, L3600.2500 ####[facility] [address] [place], [address] UR.CREAT/24hr 1.56 g/24 HR Normal 0.70-1.90 [facility] Comment on above: Performed By: #### L 3600.1100, L502.000, L3600.2500 ####[facility] [address] [place], [address] URINE CREAT 125.00 mg/dL Normal NO RANGE EST. [facility] Comment on above: Performed By: #### L 3600.1100, L502.000, L3600.2500 ####[facility] [address] [place], [address] 24 hour urine 5-hydroxyindol eacetate measurement (mass/volume)Ordered By: Flavio Hudson on 08-31-2023 5-Hydroxyindoleacetate (24H U) [Mass/Vol] [facility] Comment on above: Test not performed 24 hour urine 5-hydroxyindol eacetic acid (5-HIAA) measurement (mass/time)Ordered By: Flavio Hudson on 08-31-2023 5-Hydroxyindoleacetate (24H U) [Mass/Time] [facility] Comment on above: Test not performed 24 hour urine creatinine pari surement (mass/time)Ordered By: Flavio Hudson on 08-31-2023 Creatinine (24H U) [Mass/Time] 1.56 g/24 HR 0.70-1.90 [facility] 24 hour urine free cortisol measurement (mass/time)Ordered By: Flavio Hudson on 08-31-2023 Cortisol Free (24H U) [Mass/Time] [facility] Comment on above: Test not performed 24 hour urine normetanephrin e measurement (mass/time)Ordered By: Flavio Hudson on 08-31-2023 Normetanephrine (24H U) [Mass/Time] [facility] Comment on above: Test not performed Absolute lymphocyte countOrd ered By: Flavio Hudson on 08-31-2023 Lymphocytes Auto (Unsp spec) [#/Vol] 1.59 10*3/uL 0.83-4.51 [facility] Basophil percentageOrdered B y: Flavio Hudson on 08-31-2023 Basophils/100 WBC (Bld) 0.8 % 0-1 [facility] Bilirubin [Mass/Vol] 0.60 mg/dL 0.20-1.00 [facility] Comment on above: For patients on eltr ombopag therapy, use of Dimension [place] TBIL is not recommended. Chloride [Moles/Vol] 107 mmol/L 98-107 [facility] Eosinophils/100 WBC (Bld) 1.9 % 0-5 [facility] Glucose [Mass/Vol] 94 mg/dL 74-106 [facility] Neutrophils (Bld) [#/Vol] 5.0 10*3/uL 2.0-7.7 [facility] Neutrophils/100 WBC (Bld) 65.1 % 47-70 [facility] Potassium [Moles/Vol] 4.0 mmol/L 3.5-5.1 [facility] Protein [Mass/Vol] 7.1 g/dL 6.4-8.2 [facility] Sodium [Moles/Vol] 138 mmol/L 136-145 [facility] WBC (Bld) [#/Vol] 7.7 10*3/uL 4.4-11.0 [facility] Blood erythrocytes count (nu mber/volume)Ordered By: Flavio Hudson on 08-31-2023 RBC (Bld) [#/Vol] 4.86 10*6/uL 4.2-5.4 [facility] Blood hemoglobin measurement (mass/volume)Ordered By: Flavio Hudson on 08-31-2023 Hemoglobin (Bld) [Mass/Vol] 13.8 g/dL 12.0-15.0 [facility] Blood lymphocytes/100 leukoc ytesOrdered By: Flavio Hudson on 08-31-2023 Lymphocytes/100 WBC (Bld) 20.5 % 19-41 [facility] Blood monocytes/100 leukocyt esOrdered By: Flavio Hudson on 08-31-2023 Monocytes/100 WBC (Bld) 11.1 % 0-10 [facility] Blood platelet mean volumeOr dered By: Flavio Hudson on 08-31-2023 Platelet mean volume (Bld) [Entitic vol] 9.8 fL 6.2-12.0 [facility] CBC W/Diff, Automatedon 08-21 Absolute Lymph 1.59 X10 3/uL Normal 0.83-4.51 [facility] Comment on above: Order Comment: Order Date: 08/29/23 Order Info: 0184- - CBCD Performed By: #### L 3400.4000, L3300.1500, L100.0100, L3600.5400, L500.4050, L3300.1100 #### [facility] [address] [place], [place], [id number] Absolute Neut 5.0 X10 3/uL Normal 2.0-7.7 [facility] Comment on above: Order Comment: Order Date: 08/29/23 Order Info: 0184-1 - CBCD Performed By: #### L 3400.4000, L3300.1500, L100.0100, L3600.5400, L500.4050, L3300.1100 #### [facility] [address] [place], [place], [id number] ([address] Basophils/100 WBC (Bld) 0.8 % Normal 0-1 [facility] Comment on above: Order Comment: Order Date: 08/29/23 Order Info: 0184- - CBCD Performed By: #### L 3400.4000, L3300.1500, L100.0100, L3600.5400, L500.4050, L3300.1100 #### [facility] [address] [place], [address] Eosinophils/100 WBC (Bld) 1.9 % Normal 0-5 [facility] Comment on above: Order Comment: Order Date: 08/29/23 Order Info: 0184-1 - CBCD Performed By: #### L 3400.4000, L3300.1500, L100.0100, L3600.5400, L500.4050, L3300.1100 #### [facility] [address] [place], [address] Erythrocyte distribution width (RBC) [Ratio] 13.4 % Normal 11.6-14.6 [facility] Comment on above: Order Comment: Order Date: 08/29/23 Order Info: 0184-1 - CBCD Performed By: #### L 3400.4000, L3300.1500, L100.0100, L3600.5400, L500.4050, L3300.1100 #### [facility] [address] [place], [address] Hematocrit (Bld) [Volume fraction] 43.1 % Normal 37-47 [facility] Comment on above: Order Comment: Order Date: 08/29/23 Order Info: 0184-1 - CBCD Performed By: #### L 3400.4000, L3300.1500, L100.0100, L3600.5400, L500.4050, L3300.1100 #### [facility] [address] [place], [address] Hemoglobin (Bld) [Mass/Vol] 13.8 g/dL Normal 12.0-15.0 [facility] Comment on above: Order Comment: Order Date: 08/29/23 Order Info: 0184-1 - CBCD Performed By: #### L 3400.4000, L3300.1500, L100.0100, L3600.5400, L500.4050, L3300.1100 #### [facility] [address] [place], [address] IG% 0.600 Normal 0.0-0.9 [facility] Comment on above: Order Comment: Order Date: 08/29/23 Order Info: 0184-1 - CBCD Result Comment: IG% - Immature Granulocytes (promyelocytes, myelocytes and metamyelocytes) > 1% indicates that a LEFT SHIFT is Present. Performed By: #### L 3400.4000, L3300.1500, L100.0100, L3600.5400, L500.4050, L3300.1100 #### [facility] [address] [place], [address] Lymphocytes/100 WBC (Bld) 20.5 % Normal 19-41 [facility] Comment on above: Order Comment: Order Date: 08/29/23 Order Info: 0184- - CBCD Performed By: #### L 3400.4000, L3300.1500, L100.0100, L3600.5400, L500.4050, L3300.1100 #### [facility] [address] [place], [address] MCH (RBC) [Entitic mass] 28.4 pg Normal 27.0-32.0 [facility] Comment on above: Order Comment: Order Date: 08/29/23 Order Info: 0184 - CBCD Performed By: #### L 3400.4000, L3300.1500, L100.0100, L3600.5400, L500.4050, L3300.1100 #### [facility] [address] [place], [address] MCHC (RBC) [Mass/Vol] 32.0 g/dL Normal 32-36 [facility] Comment on above: Order Comment: Order Date: 08/29/23 Order Info: 0184- - CBCD Performed By: #### L 3400.4000, L3300.1500, L100.0100, L3600.5400, L500.4050, L3300.1100 #### [facility] [address] [place], [address] MCV (RBC) [Entitic vol] 88.7 fL Normal 81-99 [facility] Comment on above: Order Comment: Order Date: 08/29/23 Order Info: 0184- - CBCD Performed By: #### L 3400.4000, L3300.1500, L100.0100, L3600.5400, L500.4050, L3300.1100 #### [facility] [address] [place], [address] Monocytes/100 WBC (Bld) 11.1 % High 0-10 [facility] Comment on above: Order Comment: Order Date: 08/29/23 Order Info: 0184-1 - CBCD Performed By: #### L 3400.4000, L3300.1500, L100.0100, L3600.5400, L500.4050, L3300.1100 #### [facility] [address] [place], [address] Neutrophils/100 WBC (Bld) 65.1 % Normal 47[facility] Comment on above: Order Comment: Order Date: 08/29/23 Order Info: 0184-1 - CBCD Performed By: #### L 3400.4000, L3300.1500, L100.0100, L3600.5400, L500.4050, L3300.1100 #### [facility] [address] [place], [address] Nucleated RBC (Bld) [#/Vol] 0 10*3/uL Normal 0-5 [facility] Comment on above: Order Comment: Order Date: 08/29/23 Order Info: 0184-1 - CBCD Performed By: #### L 3400.4000, L3300.1500, L100.0100, L3600.5400, L500.4050, L3300.1100 #### [facility] [address] [place], [address] Platelet mean volume (Bld) [Entitic vol] 9.8 fL Normal 6.2-12.0 [facility] Comment on above: Order Comment: Order Date: 08/29/23 Order Info: 0184-1 - CBCD Performed By: #### L 3400.4000, L3300.1500, L100.0100, L3600.5400, L500.4050, L3300.1100 #### [facility] [address] [place], [address] Platelets (Bld) [#/Vol] 235 10*3/uL Normal 150-450 [facility] Comment on above: Order Comment: Order Date: 08/29/23 Order Info: 0184-1 - CBCD Performed By: #### L 3400.4000, L3300.1500, L100.0100, L3600.5400, L500.4050, L3300.1100 #### [facility] [address] [place], [address] RBC (Bld) [#/Vol] 4.86 10*6/uL Normal 4.2-5.4 [facility] Comment on above: Order Comment: Order Date: 08/29/23 Order Info: 0184-1 - CBCD Performed By: #### L 3400.4000, L3300.1500, L100.0100, L3600.5400, L500.4050, L3300.1100 #### [facility] [address] [place], [address] RDW SD 43.6 fl Normal 35.1-43.9 [facility] Comment on above: Order Comment: Order Date: 08/29/23 Order Info: 0184-1 - CBCD Performed By: #### L 3400.4000, L3300.1500, L100.0100, L3600.5400, L500.4050, L3300.1100 #### [facility] [address] [place], [place], [address] [phone] WBC (Bld) [#/Vol] 7.7 10*3/uL Normal 4.4-11.0 [facility] Comment on above: Order Comment: Order Date: 08/29/23 Order Info: 0184-1 - CBCD Performed By: #### L 3400.4000, L3300.1500, L100.0100, L3600.5400, L500.4050, L3300.1100 #### [facility] [address] [place], [place], [id number] Comprehensive Metabolic Prof il08-31-2023 Albumin [Mass/Vol] 3.5 g/dL Normal 3.2-5.0 [facility] Comment on above: Order Comment: Order Date: 06/04/23 Order Info: 0667-1 - BMP Order Date: 08/29/23 Order Info: 0786-1 - CMP AM blood Performed By: #### L 3400.4000, L3300.1500, L100.0100, L3600.5400, L500.4050, L3300.1100 #### [facility] [address] [place], [place], [address] Albumin/Globulin [Mass ratio] 1.0 {ratio} Normal 0.9-2.4 [facility] Comment on above: Order Comment: Order Date: 06/04/23 Order Info: 0667-1 - BMP Order Date: 08/29/23 Order Info: 0786-1 - CMP AM blood Performed By: #### L 3400.4000, L3300.1500, L100.0100, L3600.5400, L500.4050, L3300.1100 #### [facility] [address] [place], [place], [id number] ALK P 73 U/L Normal 45-117 [facility] Comment on above: Order Comment: Order Date: 06/04/23 Order Info: 0667-1 - BMP Order Date: 08/29/23 Order Info: 0786-1 - CMP AM blood Performed By: #### L 3400.4000, L3300.1500, L100.0100, L3600.5400, L500.4050, L3300.1100 #### [facility] [address] [place], [place], [id number] ALT [Catalytic activity/Vol] 26 U/L Normal 13-56 [facility] Comment on above: Order Comment: Order Date: 06/04/23 Order Info: 0667-1 - BMP Order Date: 08/29/23 Order Info: 0786-1 - CMP AM blood Performed By: #### L 3400.4000, L3300.1500, L100.0100, L3600.5400, L500.4050, L3300.1100 #### [facility] [address] [place], [address] AST [Catalytic activity/Vol] 16 U/L Normal 15-37 [facility] Comment on above: Order Comment: Order Date: 06/04/23 Order Info: 0667-1 - BMP Order Date: 08/29/23 Order Info: 0786-1 - CMP AM blood Performed By: #### L 3400.4000, L3300.1500, L100.0100, L3600.5400, L500.4050, L3300.1100 #### [facility] [address] [place], [address] Bilirubin [Mass/Vol] 0.60 mg/dL Normal 0.20-1.00 [facility] Comment on above: Order Comment: Order Date: 06/04/23 Order Info: 0667-1 - BMP Order Date: 08/29/23 Order Info: 0786-1 - CMP AM blood Result Comment: For patients on eltrombopag therapy, use of Dimension [place] TBIL is not recommended. Performed By: #### L 3400.4000, L3300.1500, L100.0100, L3600.5400, L500.4050, L3300.1100 #### [facility] [address] [place], [address] BUN/CRE 12.9 RATIO Normal 10-20 [facility] Comment on above: Order Comment: Order Date: 06/04/23 Order Info: 0667-1 - BMP Order Date: 08/29/23 Order Info: 0786-1 - CMP AM blood Performed By: #### L 3400.4000, L3300.1500, L100.0100, L3600.5400, L500.4050, L3300.1100 #### [facility] [address] [place], [address] CA,Total 9.4 mg/dL Normal 8.5-10.1 [facility] Comment on above: Order Comment: Order Date: 06/04/23 Order Info: 0667-1 - BMP Order Date: 08/29/23 Order Info: 0786-1 - CMP AM blood Performed By: #### L 3400.4000, L3300.1500, L100.0100, L3600.5400, L500.4050, L3300.1100 #### [facility] [address] [place], [address] Chloride [Moles/Vol] 107 mmol/L Normal 98-107 [facility] Comment on above: Order Comment: Order Date: 06/04/23 Order Info: 0667-1 - BMP Order Date: 08/29/23 Order Info: 0786- - CMP AM blood Performed By: #### L 3400.4000, L3300.1500, L100.0100, L3600.5400, L500.4050, L3300.1100 #### [facility] [address] [place], [address] CO2 [Moles/Vol] 28.0 mmol/L Normal 21.0-32.0 [facility] Comment on above: Order Comment: Order Date: 06/04/23 Order Info: 0667-1 - BMP Order Date: 08/29/23 Order Info: 0786- - CMP AM blood Performed By: #### L 3400.4000, L3300.1500, L100.0100, L3600.5400, L500.4050, L3300.1100 #### [facility] [address] [place], [address] Creatinine [Mass/Vol] 0.93 mg/dL Normal 0.55-1.02 [facility] Comment on above: Order Comment: Order Date: 06/04/23 Order Info: 0667-1 - BMP Order Date: 08/29/23 Order Info: 0786- - CMP AM blood Result Comment: The validity of the calculated GFR GFRAA in patients over 70 years has not been determined. Clinical correlation is essential. Performed By: #### L 3400.4000, L3300.1500, L100.0100, L3600.5400, L500.4050, L3300.1100 #### [facility] [address] [place], [address] EST GFR - AA 83 mL/min Normal >60 [facility] Comment on above: Order Comment: Order Date: 06/04/23 Order Info: 0667-1 - BMP Order Date: 08/29/23 Order Info: 0786-1 - CMP AM blood Result Comment: Afri can Sudanese GFR Calc Performed By: #### L 3400.4000, L3300.1500, L100.0100, L3600.5400, L500.4050, L3300.1100 #### [facility] [address] [place], [address] GAP 3 Low 5-15 [facility] Comment on above: Order Comment: Order Date: 06/04/23 Order Info: 0667-1 - BMP Order Date: 08/29/23 Order Info: 0786-1 - [facility] AM blood Performed By: #### L 3400.4000, L3300.1500, L100.0100, L3600.5400, L500.4050, L3300.1100 #### [facility] [address] [place], [address] GFR/1.73 sq M.predicted among non-blacks MDRD (S/P/Bld) [Vol rate/Area] 69 mL/min/{1.73_m2} Normal >60 [facility] Comment on above: Order Comment: Order Date: 06/04/23 Order Info: 0667-1 - BMP Order Date: 08/29/23 Order Info: 0786-1 - CMP AM blood Result Comment: Non- GFR Calc Performed By: #### L 3400.4000, L3300.1500, L100.0100, L3600.5400, L500.4050, L3300.1100 #### [facility] [address] [place], [address] Globulin (S) [Mass/Vol] 3.6 g/dL Normal 2.2-4.2 [facility] Comment on above: Order Comment: Order Date: 06/04/23 Order Info: 0667-1 - BMP Order Date: 08/29/23 Order Info: 0786-1 - CMP AM blood Performed By: #### L 3400.4000, L3300.1500, L100.0100, L3600.5400, L500.4050, L3300.1100 #### [facility] [address] [place], [address] Glucose [Mass/Vol] 94 mg/dL Normal 74-106 [facility] Comment on above: Order Comment: Order Date: 06/04/23 Order Info: 0667-1 - BMP Order Date: 08/29/23 Order Info: 0786- - CMP AM blood Performed By: #### L 3400.4000, L3300.1500, L100.0100, L3600.5400, L500.4050, L3300.1100 #### [facility] [address] [place], [address] Potassium [Moles/Vol] 4.0 mmol/L Normal 3.5-5.1 [facility] Comment on above: Order Comment: Order Date: 06/04/23 Order Info: 0667-1 - BMP Order Date: 08/29/23 Order Info: 0786- - CMP AM blood Performed By: #### L 3400.4000, L3300.1500, L100.0100, L3600.5400, L500.4050, L3300.1100 #### [facility] [address] [place], [address] Sodium [Moles/Vol] 138 mmol/L Normal 136-145 [facility] Comment on above: Order Comment: Order Date: 06/04/23 Order Info: 0667-1 - BMP Order Date: 08/29/23 Order Info: 0786-1 - CMP AM blood Performed By: #### L 3400.4000, L3300.1500, L100.0100, L3600.5400, L500.4050, L3300.1100 #### [facility] [address] [place], [place], [address] T PROT 7.1 g/dL Normal 6.4-8.2 [facility] Comment on above: Order Comment: Order Date: 06/04/23 Order Info: 0667-1 - BMP Order Date: 08/29/23 Order Info: 0786-1 - CMP AM blood Performed By: #### L 3400.4000, L3300.1500, L100.0100, L3600.5400, L500.4050, L3300.1100 #### [facility] [address] [place], [address] Urea nitrogen [Mass/Vol] 12 mg/dL Normal 7-18 [facility] Comment on above: Order Comment: Order Date: 06/04/23 Order Info: 0667-1 - BMP Order Date: 08/29/23 Order Info: 0786-1 - CMP AM blood Performed By: #### L 3400.4000, L3300.1500, L100.0100, L3600.5400, L500.4050, L3300.1100 #### [facility] [address] [place], [place], [address] Determination of erythrocyte mean corpuscular volume (MCV)Ordered By: Flavio Hudson on 08-31-2023 MCV (RBC) [Entitic vol] 88.7 fL 81-99 [facility] Hematocrit Auto (Bld) [Volum e fraction]Ordered By: Flavio Hudson on 08-31-2023 Hematocrit (Bld) [Volume fraction] 43.1 % 37-47 [facility] - Chemistry and C hemistry - challengeOrdered By: Flavio Hudson on 08-31-2023 ALP [Catalytic activity/Vol] 73 U/L 45-117 [facility] ALT [Catalytic activity/Vol] 26 U/L 13-56 [facility] CO2 [Moles/Vol] 28.0 mmol/L 21.0-32.0 [facility] Globulin (S) [Mass/Vol] 3.6 g/dL 2.2-4.2 [facility] Urea nitrogen/Creatinine [Mass ratio] 12.9 mg/mg 10-20 [facility] - Hematology and Cell countsOrdered By: Flavio Hudson on 08-31-2023 Erythrocyte distribution width (RBC) [Entitic vol] 43.6 fL 35.1-43.9 [facility] Erythrocyte distribution width (RBC) [Ratio] 13.4 % 11.6-14.6 [facility] Immature granulocytes/100 WBC (Bld) 0.600 % 0.0-0.9 [facility] Comment on above: IG% - Immature Granu locytes (promyelocytes, myelocytes and metamyelocytes) > 1% indicates that a LEFT SHIFT is Present. MCH (RBC) [Entitic mass] 28.4 pg 27.0-32.0 [facility] Nucleated RBC/100 WBC (Bld) [Ratio] 0 % 0-5 [facility] - Specimen inform ationOrdered By: Flavio Hudson on 08-31-2023 Collection duration (U) 24.0 HOURS 24.0-24.0 [facility] MCHC Auto (RBC) [Mass/Vol]Or dered By: Flavio Hudson on 08-31-2023 MCHC (RBC) [Mass/Vol] 32.0 g/dL 32-36 [facility] No Panel InformationOrdered By: Flavio Hudson on 08-31-2023 Dehydroepiandrosterone Sulfate See comment [facility] Comment on above: TEST RESULTS LIMITSD HEA-Sulfate 99.2 ug/dL 41.2-243.7 [facility]. ORIGINAL REPORT ON FILE IN LAB CONTAINS ADDITIONAL TEST SITE INFORMATION. Estimated GFR (MDRD) Amer 83 mL/min >60 [facility] Comment on above: GFR Calc Estimated GFR (MDRD) Non-Af Amer 69 mL/min >60 [facility] Comment on above: Non- GFR Calc [facility]: Test not performed [facility] on above: Test not performed Plasma renin measurement (en zymatic activity/volume)Ordered By: Flavio Hudson on 08-31-2023 Renin (P) [Catalytic activity/Vol] See comment [facility] Comment on above: TEST RESULTS LIMITSR enin Activity, Plasma A, 1.655 ng/mL/hr 0.167-5.380 CommentsA: This test was developed and its performance characteristics determined by [employer]. It has not been cleared or approved by the Food and DrugAdministration. TESTING PERFORMED AT [facility]. ORIGINAL REPORT ON FILE IN LAB CONTAINS ADDITIONAL TEST SITE INFORMATION. Platelets bldOrdered By: Nimo Hudson on 08-31-2023 Platelets (Bld) [#/Vol] 235 10*3/uL 150-450 [facility] Quantitative urine free catalina isol measurement (mass/volume)Ordered By: Flavio Hudson on 08-31-2023 Cortisol Free (U) [Mass/Vol] [facility] Comment on above: Test not performed Serum or plasma albumin nelson urement (mass/volume)Ordered By: Flavio Hudson on 08-31-2023 Albumin [Mass/Vol] 3.5 g/dL 3.2-5.0 [facility] Serum or plasma albumin/glob ulin mass ratioOrdered By: Flavio Hudson on 08-31-2023 Albumin/Globulin [Mass ratio] 1.0 {ratio} 0.9-2.4 [facility] Serum or plasma calcium nelson urement (mass/volume)Ordered By: Flavio Hudson on 08-31-2023 Calcium [Mass/Vol] 9.4 mg/dL 8.5-10.1 [facility] Serum or plasma creatinine m easurement (mass/volume)Ordered By: Flavio Hudson on 08-31-2023 Creatinine [Mass/Vol] 0.93 mg/dL 0.55-1.02 [facility] Comment on above: The validity of the calculated GFR & GFRAA in patients over 70 years has not been determined. Clinical correlation is essential. Serum or plasma urea nitroge n measurement (mass/volume)Ordered By: Flavio Hudson on 08-31-2023 Urea nitrogen [Mass/Vol] 12 mg/dL 7-18 [facility] Thin prep Papanicolaou smear with manual screeningOrdered By: Flavio Hudson on 08-31-2023 Thin prep Papanicolaou smear with manual screening 16 U/L 15-37 [facility] Thin prep Papanicolaou smear with manual screening 3 5-15 [facility] Thin prep Papanicolaou smear with manual screening See comment [facility] Comment on above: TEST RESULTS LIMITSA ldosterone A, 6.6 ng/dL 0.0-30.0CommentsA: This test was developed and its performance characteristics determined by [employer]. It has not been cleared or approved by the Food and DrugAdministration. TESTING PERFORMED AT [facility]. ORIGINAL REPORT ON FILE IN LAB CONTAINS ADDITIONAL TEST SITE INFORMATION. Urine creatinine measurement (mass/volume)Ordered By: Flavio Hudson on 08-31-2023 Creatinine (U) [Mass/Vol] 125.00 mg/dL NO RANGE EST. [facility] Urine metanephrine measureme nt (mass/volume)Ordered By: Flavio Hudson on 08-31-2023 Metanephrine (U) [Mass/Vol] TNP [facility] Comment on above: Test not performed Urine volume measurementOrde red By: Flavio Hudson on 08-31-2023 Specimen volume (U) 1.20 L [facility] Basophil percentageOrdered B y: Flavio Hudson on 06-03-2023 Bilirubin [Mass/Vol] 0.60 mg/dL 0.20-1.00 [facility] Comment on above: For patients on eltr ombopag therapy, use of Dimension [place] TBIL is not recommended. Chloride [Moles/Vol] 104 mmol/L 98-107 [facility] Cholesterol [Mass/Vol] 208 mg/dL <200 [facility] Comment on above: <200 mg/dL Desirable 200-240 mg/dL Borderline >240 mg/dL High Risk Glucose [Mass/Vol] 83 mg/dL 74-106 [facility] Potassium [Moles/Vol] 4.0 mmol/L 3.5-5.1 [facility] Protein [Mass/Vol] 7.3 g/dL 6.4-8.2 [facility] Sodium [Moles/Vol] 138 mmol/L 136-145 [facility] Triglyceride [Mass/Vol] 134 mg/dL <199 [facility] Comment on above: The drugs N-Acetylcy steine and Metamizole may falsely depress this assay.Serum Triglycerides Reference Interval Normal <150 mg/dL Borderline high 150 - 199 mg/dL High 200 - 499 mg/dL Very High > or = 500 mg/dL Laboratory - Chemistry and C hemistry - challengeOrdered By: Flavio Hudson on 06-03-2023 ALP [Catalytic activity/Vol] 68 U/L 45-117 [facility] ALT [Catalytic activity/Vol] 32 U/L 13-56 [facility] CO2 [Moles/Vol] 28.0 mmol/L 21.0-32.0 [facility] Globulin (S) [Mass/Vol] 3.7 g/dL 2.2-4.2 [facility] Urea nitrogen/Creatinine [Mass ratio] 13.5 mg/mg 10-20 [facility] No Panel InformationOrdered By: Flavio Hudson on 06-03-2023 Estimated GFR (MDRD) Amer 73 mL/min >60 [facility] Comment on above: GFR Calc Estimated GFR (MDRD) Non-Af Amer 61 mL/min >60 [facility] Comment on above: Non- GFR Calc Thyroid Stimulating Hormone (TSH) 2.34 uIU/mL 0.358-3.74 [facility] Urine Microalbumin/Creatinine Ratio TNP [facility] Comment on above: Test not performed Serum or plasma albumin nelson urement (mass/volume)Ordered By: Flavio Hudson on 06-03-2023 Albumin [Mass/Vol] 3.6 g/dL 3.2-5.0 [facility] Serum or plasma albumin/glob ulin mass ratioOrdered By: Flavio Hudson on 06-03-2023 Albumin/Globulin [Mass ratio] 1.0 {ratio} 0.9-2.4 [facility] Serum or plasma calcium nelson urement (mass/volume)Ordered By: Flavio Hudson on 06-03-2023 Calcium [Mass/Vol] 9.3 mg/dL 8.5-10.1 [facility] Serum or plasma cholesterol in HDL measurement (mass/volume)Ordered By: Flavio Hudson on 06-03-2023 Cholesterol in HDL [Mass/Vol] 48 mg/dL >40 [facility] Comment on above: The drugs N-Acetylcy steine and Metamizole may falsely depress this assay. Reference Range HDL <40 mg/dL Low HDL Cholesterol HDL >or= 60 mg/dL High HDL Cholesterol Serum or plasma cholesterol in VLDL measurement (mass/volume)Ordered By: Flavio Hudson on 06-03-2023 Cholesterol in VLDL [Mass/Vol] 27 mg/dL 5-40 [facility] Serum or plasma creatinine m easurement (mass/volume)Ordered By: Flavio Hudson on 06-03-2023 Creatinine [Mass/Vol] 1.04 mg/dL 0.55-1.02 [facility] Comment on above: The validity of the calculated GFR & GFRAA in patients over 70 years has not been determined. Clinical correlation is essential. Serum or plasma low density lipoprotein (LDL) cholesterol measurement (mass/volume)Ordered By: Flavio Hudson on 06-03-2023 Cholesterol in LDL [Mass/Vol] 133 mg/dL 0-130 [facility] Serum or plasma urea nitroge n measurement (mass/volume)Ordered By: Flavio Hudson on 06-03-2023 Urea nitrogen [Mass/Vol] 14 mg/dL 7-18 [facility] Thin prep Papanicolaou smear with manual screeningOrdered By: Flavio Hudson on 06-03-2023 Thin prep Papanicolaou smear with manual screening 15 U/L 15-37 [facility] Thin prep Papanicolaou smear with manual screening 6 5-15 [facility] Thin prep Papanicolaou smear with manual screening < 5.0 mg/L NO RANGE EST. [facility] Urine creatinine measurement (mass/volume)Ordered By: Flavio Hudson on 06-03-2023 Creatinine (U) [Mass/Vol] 89.30 mg/dL NO RANGE EST. [facility] Serum or plasma calcium nelson urement (mass/volume)Ordered By: Dr. Barrios on 03-25-2023 Calcium [Mass/Vol] 10.1 mg/dL 8.5-10.1 [facility] Basophil percentageOrdered B y: Dr. Hudson on 01-08-2023 Basophil percentage 10-25 SEEN /hpf 0-5 [facility] Bilirubin [Mass/Vol] 0.60 mg/dL 0.20-1.00 [facility] Comment on above: For patients on eltr ombopag therapy, use of Dimension [place] TBIL is not recommended. Chloride [Moles/Vol] 105 mmol/L 98-107 [facility] Glucose [Mass/Vol] 103 mg/dL 74-106 [facility] Comment on above: Fasting Glucose resu lt from 100 to 125 mg/dL suggests IMPAIRED HOMEOSTASIS per A.D.A. criteria. Potassium [Moles/Vol] 4.1 mmol/L 3.5-5.1 [facility] Protein [Mass/Vol] 7.5 g/dL 6.4-8.2 [facility] Sodium [Moles/Vol] 139 mmol/L 136-145 [facility] Bilirubin Test strip Ql (U)O rdered By: Dr. Hudson on 01-08-2023 Bilirubin Ql (U) Negative Negative [facility] Ketones Test strip Ql (U)Ord ered By: Dr. Hudson on 01-08-2023 Ketones Ql (U) 5 mg/dl Negative [facility] - Chemistry and C hemistry - challengeOrdered By: Dr. Hudson on 01-08-2023 ALP [Catalytic activity/Vol] 67 U/L 45-117 [facility] ALT [Catalytic activity/Vol] 29 U/L 13-56 [facility] CO2 [Moles/Vol] 28.0 mmol/L 21.0-32.0 [facility] Globulin (S) [Mass/Vol] 3.7 g/dL 2.2-4.2 [facility] Urea nitrogen/Creatinine [Mass ratio] 18.4 mg/mg 10-20 [facility] Mucus LM Ql (Urine sed)Order ed By: Dr. Hudson on 01-08-2023 Mucus Ql (Urine sed) 2+ /hpf [facility] Nitrite Test strip Ql (U)Ord ered By: Dr. Hudson on 01-08-2023 Nitrite Ql (U) Negative Negative [facility] No Panel InformationOrdered By: Dr. Hudson on 01-08-2023 Estimated GFR (MDRD) Amer 74 mL/min >60 [facility] Comment on above: GFR Calc Estimated GFR (MDRD) Non-Af Amer 61 mL/min >60 [facility] Comment on above: Non- GFR Calc Protein Test strip Ql (U)Ord ered By: Dr. Hudson on 01-08-2023 Protein Ql (U) 15 mg/dl Negative [facility] Serum or plasma albumin nelson urement (mass/volume)Ordered By: Dr. Hudson on 01-08-2023 Albumin [Mass/Vol] 3.8 g/dL 3.2-5.0 [facility] Serum or plasma albumin/glob ulin mass ratioOrdered By: Dr. Hudson on 01-08-2023 Albumin/Globulin [Mass ratio] 1.0 {ratio} 0.9-2.4 [facility] Serum or plasma calcium nelson urement (mass/volume)Ordered By: Dr. Hudson on 01-08-2023 Calcium [Mass/Vol] 9.7 mg/dL 8.5-10.1 [facility] Serum or plasma creatinine m easurement (mass/volume)Ordered By: Dr. Hudson on 01-08-2023 Creatinine [Mass/Vol] 1.03 mg/dL 0.55-1.02 [facility] Comment on above: The validity of the calculated GFR & GFRAA in patients over 70 years has not been determined. Clinical correlation is essential. Serum or plasma urea nitroge n measurement (mass/volume)Ordered By: Dr. Hudson on 01-08-2023 Urea nitrogen [Mass/Vol] 19 mg/dL 7-18 [facility] Squamous epithelial cells de tection in urine sediment by light microscopyOrdered By: Dr. Hudson on 01-08-2023 Epithelial cells.squamous LM Ql (Urine sed) 5-10 SEEN /hpf 5-10 [facility] Thin prep Papanicolaou smear with manual screeningOrdered By: Dr. Hudson on 01-08-2023 Thin prep Papanicolaou smear with manual screening 15 U/L 15-37 [facility] Thin prep Papanicolaou smear with manual screening 6 5-15 [facility] Urine blood detectionOrdered By: Dr. Hudson on 01-08-2023 RBC Ql (U) 250 /ul Negative [facility] RBC Ql (U) 10-25 SEEN /hpf 0-5 [facility] Urine clarityOrdered By: Dr. Hudson on 01-08-2023 Clarity (U) Clear Clear [facility] Urine color determinationOrd ered By: Dr. Hudson on 01-08-2023 Color (U) Yellow Yellow [facility] Urine glucose detectionOrder ed By: Dr. Hudson on 01-08-2023 Glucose Ql (U) Normal mg/dl Normal [facility] Urine leukocyte esterase det ection by dipstickOrdered By: Dr. Hudson on 01-08-2023 Leukocyte esterase Test strip Ql (U) 25 /ul Negative [facility] Urine pHOrdered By: Dr. Johny cardenas on 01-08-2023 pH (U) 5.0 [pH] 5.0 - 8.0 [facility] Urine sediment bacteria coun t by microscopy (number/high power field)Ordered By: Dr. Hudson on 01-08-2023 Bacteria LM.HPF (Urine sed) [#/Area] 1 /[HPF] None Seen [facility] Urine specific gravity measu rementOrdered By: Dr. Hudson on 01-08-2023 Specific gravity (U) [Rel density] 1.025 1.002-1.03 0 [facility] Urobilinogen Auto test strip Ql (U)Ordered By: Dr. Hudson on 01-08-2023 Urobilinogen Ql (U) Normal mg/dl Normal [facility] UA DIP, URINE (POC)on 2022 BILIRUBIN UA (POCT) Negative Negative [facility] CLARITY UA (POCT) Slightly Cloudy Cl [facility] COLOR UA (POCT) Yellow [facility] GLUCOSE UA (POCT) Negative Negative mg/dL [facility] HEMOGLOBIN/BLOOD UA (POCT) Large Abnormal Negative [facility] KETONE UA (POCT) Negative Negative mg/dL [facility] LEUKOCYTES UA (POCT) Negative Negative [facility] NITRITE UA (POCT) Negative Negative [facility] PH UA (POCT) 5.5 4.5 - 8.0 [facility] Protein Ql (U) Negative Negative mg/dL [facility] SPECIFIC GRAVITY UA (POCT) 1.015 1.005 - 1.030 [facility] UROBILINOGEN UA (POCT) 0.2 E.U./dL Desire l E.U./dL [facility] Basophil percentageon 2021 Bilirubin [Mass/Vol] 0.50 mg/dL 0.20-1.00 [facility] Work Phone: Comment on above: For patients on eltr ombopag therapy, use of Dimension [place] TBIL is not recommended. Chloride [Moles/Vol] 104 mmol/L 98-107 [facility] Work Phone: Cholesterol [Mass/Vol] 237 mg/dL <200 [facility] Work Phone: Comment on above: <200 mg/dL Desirable 200-240 mg/dL Borderline >240 mg/dL High Risk Glucose [Mass/Vol] 80 mg/dL 74-106 [facility] Work Phone: Potassium [Moles/Vol] 4.1 mmol/L 3.5-5.1 [facility] Work Phone: Protein [Mass/Vol] 7.5 g/dL 6.4-8.2 [facility] Work Phone: Sodium [Moles/Vol] 138 mmol/L 136-145 [facility] Work Phone: Triglyceride [Mass/Vol] 181 mg/dL <199 [facility] Work Phone: Comment on above: The drugs N-Acetylcy steine and Metamizole may falsely depress this assay.Serum Triglycerides Reference Interval Normal <150 mg/dL Borderline high 150 - 199 mg/dL High 200 - 499 mg/dL Very High > or = 500 mg/dL Laboratory - Chemistry and C hemistry - challengeon 09-10-2022 ALP [Catalytic activity/Vol] 68 U/L 45-117 [facility] Work Phone: ALT [Catalytic activity/Vol] 36 U/L 13-56 [facility] Work Phone: CO2 [Moles/Vol] 26.0 mmol/L 21.0-32.0 [facility] Work Phone: Globulin (S) [Mass/Vol] 3.7 g/dL 2.2-4.2 [facility] Work Phone: Urea nitrogen/Creatinine [Mass ratio] 19.0 mg/mg 10-20 [facility] Work Phone: No Panel Informationon 09-10 C-Reactive Protein High Sensitivity 5.02 mg/L <3.00 [facility] Work Phone: Comment on above: Low Relative Risk of CVD <1.0 mg/L Average Relative Risk of CVD 1.0 - 3.0 mg/L High Relative Risk of CVD >3.0 mg/L Estimated GFR (MDRD) Amer 94 mL/min >60 [facility] Work Phone: Comment on above: GFR Calc Estimated GFR (MDRD) Non-Af Amer 78 mL/min >60 [facility] Work Phone: Comment on above: Non- GFR Calc Serum or plasma albumin nelson urement (mass/volume)on 09-10-2022 Albumin [Mass/Vol] 3.8 g/dL 3.2-5.0 [facility] Work Phone: Serum or plasma albumin/glob ulin mass ratioon 09-10-2022 Albumin/Globulin [Mass ratio] 1.0 {ratio} 0.9-2.4 [facility] Work Phone: Serum or plasma calcium nelson urement (mass/volume)on 09-10-2022 Calcium [Mass/Vol] 9.3 mg/dL 8.5-10.1 [facility] Work Phone: Serum or plasma cholesterol in HDL measurement (mass/volume)on 09-10-2022 Cholesterol in HDL [Mass/Vol] 52 mg/dL >40 [facility] Work Phone: Comment on above: The drugs N-Acetylcy steine and Metamizole may falsely depress this assay. Reference Range HDL <40 mg/dL Low HDL Cholesterol HDL >or= 60 mg/dL High HDL Cholesterol Serum or plasma cholesterol in VLDL measurement (mass/volume)on 09-10-2022 Cholesterol in VLDL [Mass/Vol] 36 mg/dL 5-40 [facility] Work Phone: Serum or plasma creatinine m easurement (mass/volume)on 09-10-2022 Creatinine [Mass/Vol] 0.84 mg/dL 0.55-1.02 [facility] Work Phone: Comment on above: The validity of the calculated GFR & GFRAA in patients over 70 years has not been determined. Clinical correlation is essential. Serum or plasma low density lipoprotein (LDL) cholesterol measurement (mass/volume)on 09-10-2022 Cholesterol in LDL [Mass/Vol] 149 mg/dL 0-130 [facility] Work Phone: Serum or plasma urea nitroge n measurement (mass/volume)on 09-10-2022 Urea nitrogen [Mass/Vol] 16 mg/dL 7-18 [facility] Work Phone: Thin prep Papanicolaou smear with manual screeningon 09-10-2022 Thin prep Papanicolaou smear with manual screening 18 U/L 15-37 [facility] Work Phone: Thin prep Papanicolaou smear with manual screening 8 5-15 [facility] Work Phone: Basophil percentageon 2021 Chloride [Moles/Vol] 107 mmol/L 98-[address] [facility] Work Phone: Cholesterol [Mass/Vol] 253 mg/dL <200 [place] [facility] Work Phone: Comment on above: <200 mg/dL Desirable 200-240 mg/dL Borderline >240 mg/dL High Risk Glucose [Mass/Vol] 93 mg/dL 74-106 [facility] Work Phone: Potassium [Moles/Vol] 4.5 mmol/L 3.5-5.1 [place] [facility] Work Phone: Sodium [Moles/Vol] 138 mmol/L 136-145 [facility] Work Phone: Triglyceride [Mass/Vol] 162 mg/dL <199 [facility] Work Phone: Comment on above: The drugs N-Acetylcy steine and Metamizole may falsely depress this assay.Serum Triglycerides Reference Interval Normal <150 mg/dL Borderline high 150 - 199 mg/dL High 200 - 499 mg/dL Very High > or = 500 mg/dL Laboratory - Chemistry and C hemistry - challengeon 02-19-2022 CO2 [Moles/Vol] 25.0 mmol/L 21.0-32.0 [facility] Work Phone: Urea nitrogen/Creatinine [Mass ratio] 16.9 mg/mg 10-20 [facility] Work Phone: No Panel Informationon 02-19 Estimated GFR (MDRD) Amer 82 mL/min >60 [facility] Work Phone: Comment on above: GFR Calc Estimated GFR (MDRD) Non-Af Amer 68 mL/min >60 [facility] Work Phone: Comment on above: Non- GFR Calc Urine Microalbumin/Creatinine Ratio 10.3 mg/g CRE <30 [facility] Work Phone: Serum or plasma calcium nelson urement (mass/volume)on 02-19-2022 Calcium [Mass/Vol] 9.5 mg/dL 8.5-10.1 [facility] Work Phone: Serum or plasma cholesterol in HDL measurement (mass/volume)on 02-19-2022 Cholesterol in HDL [Mass/Vol] 49 mg/dL >40 [facility] Work Phone: Comment on above: The drugs N-Acetylcy steine and Metamizole may falsely depress this assay. Reference Range HDL <40 mg/dL Low HDL Cholesterol HDL >or= 60 mg/dL High HDL Cholesterol Serum or plasma cholesterol in VLDL measurement (mass/volume)on 02-19-2022 Cholesterol in VLDL [Mass/Vol] 32 mg/dL 5-40 [facility] Work Phone: Serum or plasma creatinine m easurement (mass/volume)on 02-19-2022 Creatinine [Mass/Vol] 0.95 mg/dL 0.55-1.02 [facility] Work Phone: Comment on above: The validity of the calculated GFR & GFRAA in patients over 70 years has not been determined. Clinical correlation is essential. Serum or plasma low density lipoprotein (LDL) cholesterol measurement (mass/volume)on 02-19-2022 Cholesterol in LDL [Mass/Vol] 172 mg/dL 0-130 [facility] Work Phone: Serum or plasma urea nitroge n measurement (mass/volume)on 02-19-2022 Urea nitrogen [Mass/Vol] 16 mg/dL 7-18 [facility] Work Phone: Thin prep Papanicolaou smear with manual screeningon 02-19-2022 Thin prep Papanicolaou smear with manual screening 6 5-15 [facility] Work Phone: Thin prep Papanicolaou smear with manual screening 22.1 mg/L NO RANGE EST. [facility] Work Phone: Urine creatinine measurement (mass/volume)on 02-19-2022 Creatinine (U) [Mass/Vol] 215.00 mg/dL NO RANGE EST. [facility] Work Phone: Vital Signs Date Time Vital Sign Value Performing Clinician Facility 11-04-2024 08:17-0500 Body weight 97.52 kg Lora Marquez MD Work Phone: [facility] 11-04-2024 08:17-0500 Diastolic blood pressure 76 mm[Hg] Lora Marquez MD Work Phone: [facility] 11-04-2024 08:17-0500 Systolic blood pressure 126 mm[Hg] Lora Marquez MD Work Phone: [facility] 02-20-2024 08:51-0400 Body height 157.[address] Flavio Hudson Work Phone: [facility] 02-20-2024 08:51-0400 Body mass index (BMI) [Ratio] 39.5 kg/m2 Dr. Flavio Hudson Work Phone: [facility] 02-20-2024 08:51-0400 Body weight 98.[address] Flavio Hudson Work Phone: [facility] 01-29-2023 09:15-0400 Body temperature 96.9 [degF] [facility] 01-29-2023 09:15-0400 Diastolic blood pressure 77 mm[Hg] [facility] 01-29-2023 09:15-0400 Heart rate 76 /min [facility] 01-29-2023 09:15-0400 Respiratory rate 16 /min [facility] 01-29-2023 09:15-0400 SaO2% (BldA) [Mass fraction] 97 % [facility] 01-29-2023 09:15-0400 Systolic blood pressure 124 mm[Hg] [facility] 01-29-2023 06:43-0400 Body height 157.48 cm [facility] 01-29-2023 06:43-0400 Body mass index (BMI) [Ratio] 38.7 kg/m2 [facility] 01-29-2023 06:43-0400 Body weight 96 kg [facility] 01-05-2023 10:16-0400 Body temperature 97.81 [degF] Daniel Justice [employer] MARKETING SPECIALIST.[employer]ING TRUCK [employer]IVER Work Phone: [facility] 01-05-2023 10:16-0400 Body weight 97.25 kg Daniel Vinh [employer] MARKETING SPECIALIST.CATERING TRUCK DRIVER Work Phone: [facility] 01-05-2023 10:16-0400 Diastolic blood pressure 66 mm[Hg] Daniel Justice SEO MARKETING SPECIALIST.CATERING TRUCK DRIVER Work Phone: [facility] 01-05-2023 10:16-0400 Heart rate 84 /min Daniel Justice SEO MARKETING SPECIALIST.CATERING TRUCK DRIVER Work Phone: [facility] 01-05-2023 10:16-0400 Respiratory rate 18 /min Daniel Justice SEO MARKETING SPECIALIST.CATERING TRUCK DRIVER Work Phone: [facility] 01-05-2023 10:16-0400 SaO2% (BldA) [Mass fraction] 97 % Daniel Justice SEO MARKETING SPECIALIST.CATERING TRUCK DRIVER Work Phone: [facility] 01-05-2023 10:16-0400 Systolic blood pressure 128 mm[Hg] Daniel Justice SEO MARKETING SPECIALIST.CATERING TRUCK DRIVER Work Phone: [facility] Encounters Encounter Date Encounter Type Care Provider Facility Start: 11-04-2024 End: 11-04-2024 ambulatory LORA MARQUEZ Facility:[facility] Start: 11-04-2024 End: 11-04-2024 Patient encounter procedure Lora Marquez MD Work Phone: OB/Gynecology Comment on above: Itching in the vagin al area (Primary Dx); Vaginal itching Start: 06-05-2024 End: 06-05-2024 ambulatory Flavio Hudson Facility:[facility] Start: 05-14-2024 End: 05-14-2024 ambulatory Flavio Hudson Facility:[facility] Start: 04-10-2024 End: 04-10-2024 ambulatory Flavio Hudson Facility:[facility] Start: 03-31-2024 ambulatory Flavio Hudson Facility:[facility] Start: 03-31-2024 End: 03-31-2024 ambulatory Nirmala Barrios Facility:[facility] Start: 03-17-2024 End: 03-17-2024 ambulatory Flavio Hudson Facility:[facility] Start: 02-20-2024 End: 02-20-[address] Flavio Hudson Work Phone: [facility] Work Phone: Start: 02-20-2024 End: 02-20-2024 ambulatory Flavio Hudson Facility:[facility] Start: 02-17-2024 End: 02-17-[address] Flavio Hudson Work Phone: [facility] Work Phone: Start: 02-17-2024 End: 02-17-[address] Flavio Hudson Work Phone: [facility] Work Phone: Start: 02-17-2024 End: 02-17-2024 ambulatory Flavio Hudson Facility:[facility] Start: 12-11-2023 End: 12-11-2023 ambulatory Flavio Hudson [facility] Work Phone: Start: 12-11-2023 End: 12-11-2023 Discharged Recurring [facility] Therapy Work Phone: Start: 09-11-2023 End: 09-11-2023 ambulatory [facility] Work Phone: Start: 09-11-2023 End: 09-11-2023 Patient encounter procedure [facility]Laboratory, Specimen Work Phone: Start: 09-11-2023 End: 09-11-2023 ambulatory Flavio Hudson Facility:[facility] Start: 08-31-2023 End: 08-31-2023 Patient encounter procedure [facility] Work Phone: Start: 08-31-2023 End: 08-31-2023 ambulatory Flavio Hudson Facility:[facility] Start: 06-03-2023 End: 06-03-2023 Patient encounter procedure [facility]Out[facility] Work Phone: Start: 05-06-2023 End: 05-06-2023 ambulatory [facility] Work Phone: Start: 05-06-2023 End: 05-06-2023 Discharged Recurring [facility] Work Phone: Start: 03-25-2023 End: 03-25-2023 ambulatory [facility] Work Phone: Start: 03-25-2023 End: 03-25-2023 [facility] Start: 03-25-2023 Registered Recurring [facility] Start: 02-18-2023 End: 02-18-2023 ambulatory [facility] Work Phone: Start: 02-18-2023 End: 02-18-2023 Patient encounter [facility] Start: 02-07-2023 End: 02-07-2023 [facility] Start: 01-29-2023 End: 01-29-2023 Admission to same day surgery center [facility] Start: 01-21-2023 End: 01-21-2023 ambulatory [facility] Work Phone: Start: 01-21-2023 End: 01-21-[address] [facility] Start: 2023 End: 2023 ambulatory [facility] Work Phone: Start: 2023 End: 2023 Patient encounter procedure [facility] Start: 01-08-2023 End: 01-08-2023 ambulatory [facility] Work Phone: Start: 01-08-2023 End: 01-08-2023 Patient encounter procedure [facility] Start: 01-05-2023 End: 01-05-2023 Office outpatient visit 15 minutes Daniel Justice APRN.CATERING TRUCK DRIVER Work Phone: [facility] Comment on above: Hematuria, unspecifi ed type (Primary Dx) Start: 09-10-2022 End: 09-10-2022 ambulatory [facility] Work Phone: Start: 09-10-2022 End: 09-10-2022 Patient encounter procedure [facility] Start: 05-07-2022 End: 05-07-2022 Patient encounter procedure [facility] Start: 02-19-2022 End: 02-19-2022 Patient encounter procedure [facility] Procedures Date Procedure Procedure Detail Performing Clinician Start: 02-17-2024 MRI of cervical spine Chen Hudson Work Phone: Start: 06-03-2023 Screening mammography Start: 02-18-2023 Diagnostic radiograp hy of abdomen Start: 02-07-2023 CT of abdomen with contrast Start: 01-21-2023 Diagnostic radiograp hy of abdomen Start: 2023 CT of abdomen and pe lvis without contrast Start: 01-05-2023 Urnls dip stick/tabl et rgnt auto w/o microscopy Elly Vu PA-C Work Phone: Start: 05-07-2022 Screening mammography Plan of Treatment Date Care Activity Detail Author Start: 06-21-2024 Covid-19 Vaccine ( season) Covid-19 Vaccine ( season) [facility] Start: 02-20-2024 Patient referral [facility] Work Phone: Start: 02-20-2024 X-ray of cervical spine Cerv Spine 4 or 5 Views [facility] Start: 02-20-2024 XR Cervical spine 4 or 5 Views [facility] Start: 08-31-2023 Catecholamines, fractionation measurement, urine [facility] Start: 01-29-2023 Anes lithotrp xtrcorp shock wave w/o water bath ANESTH KIDNEY STONE DESTRUCT [facility] Start: 01-29-2023 Lithotripsy xtrcorp shock wave FRAGMENTING OF KIDNEY STONE [facility] Start: 01-29-2023 Patient discharge [facility] Start: 10-21-2022 DEPRESSION ASSESSMENT DEPRESSION ASSESSMENT [facility] Start: 2022 COLOGUARD (FIT-DNA) COLOGUARD (FIT-DNA) [facility] Start: 2022 Colonoscopy COLONOSCOPY [facility] Start: 2022 COLORECTAL CANCER SCREENING COLORECTAL CANCER SCREENING [facility] Start: [address] COLONOGRAPHY [facility] Start: 2022 DIABETES SCREEN DIABETES SCREEN [facility] Start: 2022 Diabetes Screening Diabetes Screening [facility] Start: 2022 FECAL OCCULT BLOOD FECAL OCCULT BLOOD [facility] Start: 2022 Lipid panel Lipid Screening [facility] Start: 2022 LIPID SCREEN LIPID SCREEN [facility] Start: 2022 Screening for malignant neoplasm of colon [facility] Start: 2022 SIGMOIDOSCOPY SIGMOIDOSCOPY [facility] Start: 02-08-2021 COVID-19 VACCINE (2 - Moderna series) COVID-19 VACCINE (2 - Moderna series) [facility] Start: 2017 Mammography MAMMOGRAM [facility] Start: 2017 Screening for malignant neoplasm of breast Mammogram Screening [facility] Start: 2007 HPV TESTING HPV TESTING [facility] Start: 1998 PAP TESTING PAP TESTING [facility] Start: 1998 Screening for malignant neoplasm of cervix Cervical Cancer Screening [facility] Start: 01-16-1996 Hepatitis B Vaccine (1 of 3 - 19+ 3-dose series) Hepatitis B Vaccine (1 of 3 - 19+ 3-dose series) [facility] Start: 01-16-1996 Urine microalbumin profile [facility] Start: 1995 Anxiety Screening Anxiety Screening [facility] Start: 1995 Depression Screening Depression Screening [facility] Start: 1977 HEPATITIS B (1 of 3 - 3-dose series) HEPATITIS B (1 of 3 - 3-dose series) [facility] 24 hour urine metadr enaline output [facility] 5-Hydroxyindoleaceta te [Mass/volume] in 24 hour Urine [facility] 5-Hydroxyindoleaceti c acid measurement [facility] Aldosterone [Mass/vo lume] in Serum or Plasma [facility] Bacteria identified in Urine by Culture URINE CULTURE Microbiology Routine Hematuria, unspecified type Ordered: 01/05/2023 [facility] Work Phone: Comment on above: Ordered: 01/05/2023 BACTERIAL VAGINOSIS NAAT BACTERI AL VAGINOSIS NAAT Lab Routine Vaginal itching 11/04/2024 8:56 AM EST [facility] NO/TRICHOMONAS NAAT NO /TRICHOMONAS NAAT Lab Routine Vaginal itching 11/04/2024 8:56 AM EST [facility] Work Phone: Cortisol Free [Mass/ volume] in 24 hour Urine [facility] Cortisol Free [Mass/ volume] in Urine [facility] Dehydroepiandrostero ne sulfate (DHEA-S) [Mass/volume] in Serum or Plasma [facility] Metanephrine [Mass/v olume] in Urine [facility] Normetanephrine [Mas s/time] in 24 hour Urine [facility] Patient referral [facility] Work Phone: Renin [Enzymatic activity/volume] in Plasma [facility] Urine normetadrenaline level [facility] Payers Date Payer Category Payer Self-pay [id number] 2019 Unknown MMO MMO [employer] PPO [id number] 2019-Present [phone] [address] [place] [address] PPO [id number] 2016 Unknown [id number] Unknown [id number] Unknown [id number] Unknown [id number] Unknown [id number] Unknown [id number] Unknown [id number] Unknown [id number] Unknown [id number] Unknown [id number] Unknown [id number] Unknown [id number] Unknown [id number] Unknown [id number] Social History Date Type Detail Facility Start: 03-03-2018 End: 02-20-2024 Tobacco smoking status [facility] Unknown if ever smoked [facility] Start: 1975 Sex Assigned At Female [facility] Start: 01-05-2023 Tobacco smoking status GAIS Never smoked tobacco [facility] Start: 01-05-2023 Tobacco use and exposure Smokeless tobacco non-user [facility] Start: 01-05-2023 End: 11-04-2024 Alcohol intake Current drinker of alcohol (finding) [facility] Start: 1975 Sex Assigned At Not on file [facility] Start: 11-04-2024 History of Social function [facility] Start: 11-04-2024 Tobacco use panel [facility] National Score (1-100), lower number is lower risk 65 [facility] NEGATED: Highlighted row [facility] Medical Equipment Procedure Code Equipment Code Equipment Origin al Text Equipment Identifier Dates RALPH 3GRM HEMO STAT ABS FDA Start: 02-26-2018 RALPH 3GRM HEMO STAT ABS FDA Start: 02-26-2018 RALPH 3GRM HEMO STAT ABS FDA Start: 02-26-2018 RALPH 3GRM HEMO STAT ABS FDA Start: 02-26-2018 RALPH 3GRM HEMO STAT ABS FDA Start: 02-26-2018 RALPH 3GRM HEMO STAT ABS FDA Start: 02-26-2018 RALPH 3GRM HEMO STAT ABS FDA Start: 02-26-2018 RALPH 3GRM HEMO STAT ABS FDA Start: 02-26-2018 RALPH 3GRM HEMO STAT ABS FDA Start: 02-26-2018 RALPH 3GRM HEMO STAT ABS FDA Start: 02-26-2018 RALPH 3GRM HEMO STAT ABS FDA Start: 02-26-2018 RALPH 3GRM HEMO STAT ABS FDA Start: 02-26-2018 Goals Date Patient Goal Desired Activity /State Mental Status Date Assessment Result Facility 01-29-2023 Cognitive function Voice/Name [facility] Work Phone: 01-29-2023 Cognitive function Patient Orien tation Person;Place;Time [facility] Work Phone: Progress note 11-04-2024 Note Date & Type Note Facility 11-04-2024 Note HNO ID: [id number] Author: LORA MARQUEZ MD Service: ? Author Type: Physician Type: Progress Notes Filed: 11/04/2024 08:47 Note Text: Judah Crespo is a 49 year old female who presents for problem visit for evaluation for a potential yeast infection noting 9 days of sx and treatment with Monistat for 3 days and 2 doses of diflucan 2 days apart with marginal relief. Itching both internal and external. HPI: as above since her 20's occurring with menses in her late 30's OB History No obstetric history on file. 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 Comments: Sexual Activity: Not Asked; No partner data on record Contraception: No contraception data on record PAST MEDICAL HISTORY Diagnosis Date Adjustment disorder with depressed mood PAST SURGICAL HISTORY Procedure Laterality Date DELIVERY ONLY , low cervical ENTERORRHAPHY SINGLE PERFORATION 11/13/05 MYOMECTOMY 1-4 MYOMAS W/250 GM/< ABDOMINAL APPR 2000 FAMILY HISTORY Problem Relation Age of Onset Alcohol/Drug Father Allergies Mother Allergies Sister Breast Cancer Mother Cancer Paternal Grandfather Diabetes Maternal Grandfather Social History Tobacco Use Smoking status: Never Smokeless tobacco: Never Substance Use Topics Alcohol use: Yes Comment: socially Drug use: Never Current Outpatient Medications Medication Sig bisoprolol (ZEBETA) 5 mg tablet Take by mouth daily at bedtime. quinapril HCl (QUINAPRIL ORAL) Take by mouth. estradiol(ESTRACE 2 MG TAB) TAKE DIRECTED (Patient not taking: Reported on 01/05/2023) COMPOUNDED PRESCRIPTION LEUPROLIDE 2WK 1MG/0.2ML, 2.8 ML VIAL FOR SUB-Q, USE DIRECTED (Patient not taking: Reported on 01/05/2023) methylprednisolone(MEDROL 16 MG TAB) Take as directed (Patient not taking: Reported on 01/05/2023) PROGESTERONE 50 MG/ML IM OIL USE DIRECTED (Patient not taking: Reported on 01/05/2023) TETRACYCLINE 250 MG CAP TAKE DIRECTED (Patient not taking: Reported on 01/05/2023) ZOLOFT 50 MG TAB Take one(1) tablet daily. (Patient not taking: Reported on 01/05/2023) No current facility-administered medications for this visit. Allergies As of Date: 11/04/2024 (No Known Allergies) Fully Assessed 01/05/2023 REVIEW OF SYSTEMS Abdomen: No bloating, early satiety, indigestion, or increased flatulence. No abdominal pain, nausea, vomiting, diarrhea, or constipation. Bladder: No dysuria, gross hematuria, urinary frequency, urinary urgency, or incontinence. Breast: No breast lumps, nipple d/c, overlying skin changes, redness or skin retraction. Expanded ROS: N/A Allergies and current medication updated:Yes SENSITIVE EXAM: The sensitive examination was discussed with the Patient or Patient's Authorized Pcb Design Engineer. As applicable, any other physician, advance practice provider, medical student, or other health professional student that will be observing or involved in the sensitive examination for educational or training purposes was discussed with the Patient or Authorized Pcb Design Engineer. The Patient or Authorized Pcb Design Engineer has agreed to proceed with the sensitive examination. (Sensitive examination includes inspection and/or palpation of the breasts, pelvis, prostate and anorectal regions). EXAM: LMP 02/18/2017 GENERAL: pleasant, female in no apparent distress PELVIC: external genitalia normal, normal Bartholin's glands, urethra, [place]'s glands, no vulvar lesions, no cervical lesions, good vaginal support, physiologic discharge present, normal appearing perineal body and perianal region, well estrogenized, cervix surgically absent BIMANUAL: no adnexal masses, non-tender, and uterus surgically absent ASSESSMENT AND PLAN: essentially unremarkable vulvovaginal exam ? resolving no/culture taken Assessment AND Plan Vaginal itching Itching in the vaginal area culture pending ftft> 30m Lora Marquez MD [facility] History of Present illness Narrative 11-04-2024 Lora Marquez MD - 11/04/2024 8:10 AM EST Note Date & Type Note Facility 11-04-2024 History of Presen t illness Narrative Judah Crespo is a 49 year old female who presents for problem visit for evaluation for a potential yeast infection noting 9 days of sx and treatment with Monistat for 3 days and 2 doses of diflucan 2 days apart with marginal relief. Itching both internal and external. HPI: as above since her 20's occurring with menses in her late 30's OB History No obstetric history on file. 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 Comments: Sexual Activity: Not Asked; No partner data on record Contraception: No contraception data on record PAST MEDICAL HISTORY Diagnosis Date Adjustment disorder with depressed mood PAST SURGICAL HISTORY Procedure Laterality Date DELIVERY ONLY , low cervical ENTERORRHAPHY SINGLE PERFORATION 11/13/05 MYOMECTOMY 1-4 MYOMAS W/250 GM/< ABDOMINAL APPR 1999 FAMILY HISTORY Problem Relation Age of Onset Alcohol/Drug Father Allergies Mother Allergies Sister Breast Cancer Mother Cancer Paternal Grandfather Diabetes Maternal Grandfather Social History Tobacco Use Smoking status: Never Smokeless tobacco: Never Substance Use Topics Alcohol use: Yes Comment: socially Drug use: Never Current Outpatient Medications Medication Sig bisoprolol (ZEBETA) 5 mg tablet Take by mouth daily at bedtime. quinapril HCl (QUINAPRIL ORAL) Take by mouth. estradiol(ESTRACE 2 MG TAB) TAKE DIRECTED (Patient not taking: Reported on 01/05/2023) COMPOUNDED PRESCRIPTION LEUPROLIDE 2WK 1MG/0.2ML, 2.8 ML VIAL FOR SUB-Q, USE DIRECTED (Patient not taking: Reported on 01/05/2023) methylprednisolone(MEDROL 16 MG TAB) Take as directed (Patient not taking: Reported on 01/05/2023) PROGESTERONE 50 MG/ML IM OIL USE DIRECTED (Patient not taking: Reported on 01/05/2023) TETRACYCLINE 250 MG CAP TAKE DIRECTED (Patient not taking: Reported on 01/05/2023) ZOLOFT 50 MG TAB Take one(1) tablet daily. (Patient not taking: Reported on 01/05/2023) No current facility-administered medications for this visit. Allergies As of Date: 11/04/2024 (No Known Allergies) Fully Assessed 01/05/2023 REVIEW OF SYSTEMS Abdomen: No bloating, early satiety, indigestion, or increased flatulence. No abdominal pain, nausea, vomiting, diarrhea, or constipation. Bladder: No dysuria, gross hematuria, urinary frequency, urinary urgency, or incontinence. Breast: No breast lumps, nipple d/c, overlying skin changes, redness or skin retraction. Expanded ROS: N/A Allergies and current medication updated:Yes SENSITIVE EXAM: The sensitive examination was discussed with the Patient or Patient's Authorized Pcb Design Engineer. As applicable, any other physician, advance practice provider, medical student, or other health professional student that will be observing or involved in the sensitive examination for educational or training purposes was discussed with the Patient or Authorized Pcb Design Engineer. The Patient or Authorized Pcb Design Engineer has agreed to proceed with the sensitive examination. (Sensitive examination includes inspection and/or palpation of the breasts, pelvis, prostate and anorectal regions). EXAM: LMP 02/18/2017 GENERAL: pleasant, female in no apparent distress PELVIC: external genitalia normal, normal Bartholin's glands, urethra, [place]'s glands, no vulvar lesions, no cervical lesions, good vaginal support, physiologic discharge present, normal appearing perineal body and perianal region, well estrogenized, cervix surgically absent BIMANUAL: no adnexal masses, non-tender, and uterus surgically absent ASSESSMENT AND PLAN: essentially unremarkable vulvovaginal exam ? resolving no/culture taken Assessment & Plan Vaginal itching Itching in the vaginal area culture pending ftft> 30m Lora Marquez MD documented in this encounter [facility] Discharge summary 05-06-2023 Note Date & Type Note Facility 05-06-2023 Discharge summary Note Date/Time May 06, 2023 9:15 am [facility] [address] [place] [address] / REHABILITATION SERVICES DISCHARGE SUMMARY MR#: [id number] Acct: [id number] Name: JUDAH CRESPO Rep #: [id number] : 1975 48 From: Flavio Boyd DPT, OCS, CSCS Referring Dr.: Dr. Flavio Hudson MD Status: REG RCR Insurance: [facility] SELF PAY INSURANCE Discharge Summary D/C summary: It has been my pleasure to treat JUDAH CRESPO referred by Dr. Flavio Hudson MD, with the diagnosis of Back pain for a total of 7 visit(s). Discharge Date: 05/06/23 Please see the following information for a summary of their discharge status. Subjective Subjective: Much better. Very infrequent pain. Pain now is not daily, Had two days without pain in a row. Mostly every other day 2/10 with certain ROM, stretches. Sleep is fine. Activities : normal. Pain upper back: Pain Intensity (Out of 10): 1 Overall Improvement % Improvement: 90 Objective Objective/Function: Full cervical aROM 85 ext, 90 L rotationa dn 85 R rotation. No tenderness in rhomb oids anynmore. Feeling good and full UE and cervical aROM without pain. Goals Goal 1:: full cervical AROm to 85 degrees without neck or upper back pain Goal Progress: Goal Met Goal 2:: Pain 0-1/10 at allt imes Goal Progress: 2/10 Goal 3:: Pt feel 100% back to normal pain and activity Goal Progress: Progressing Goal 4:: I managemnt of condtiion /HEP/posture Goal Progress: Goal Met Plan Plan: d/c D/C Information Discharge Comments: Doing well and will continue via HEP. d/c sentence: If there are questions or concerns regarding this patient's physical therapy, please feel free to call me at [phone]. Thank you for the referral of thispatient. Sincerely, Flavio Boyd, BR[place], OCS, CSCS Balance/Gait/Functional tests Balance/Special Test Scores Oswestry Low Back Score: 0 Oswestry Neck Score: 4 <Electronically signed by Flavio Boyd DPT, OCS, CSCS> 05/06/23 0915 CC: Dr. Flavio Hudson MD ~ EBG Signed [facility] Work Phone: History of Present illness Narrative 01-05-2023 Daniel Justice, TRINA.CATERING TRUCK DRIVER - 01/05/2023 10:18 AM EDT Note Date & Type Note Facility 01-05-2023 History of Presen t illness Narrative Images from the original note were not included. Subjective HPI Nontoxic-appearing female presents urgent care chief complaint blood in urine. Duration of symptoms 1 day. Associated symptoms intermittent back pain for about 3 weeks. Worsened on Saturday. Noticed blood in urine yesterday. Rates pain 2 out of 10 currently. Pain has significantly improved. Denies any other symptoms. Denies any OTC medication use. Denies any radiculopathy. No saddle anesthesia or incontinence. No dysuria frequency urgency vaginal discharge. Has had a hysterectomy. Denies any fever body aches chills productive cough chest pain shortness of breath pleuritic pain hemoptysis nausea vomiting abdominal pain change in bowel or bladder habits. Past medical history prescription medication use and allergies reviewed. .Patient presents with: Hematuria: Pt reported mid back pain x4 days. PAST MEDICAL HISTORY Diagnosis Date Adjustment disorder with depressed mood PAST SURGICAL HISTORY Procedure Laterality Date DELIVERY ONLY , low cervical ENTERORRHAPHY SINGLE PERFORATION 11/13/05 MYOMECTOMY 1-4 MYOMAS W/250 GM/< ABDOMINAL APPR 1999 ALLERGIES Patient has no known allergies. MEDICATIONS bisoprolol (ZEBETA) 5 mg tablet Take by mouth daily at bedtime. quinapril HCl (QUINAPRIL ORAL) Take by mouth. estradiol(ESTRACE 2 MG TAB) TAKE DIRECTED (Patient not taking: Reported on 01/05/2023) COMPOUNDED PRESCRIPTION LEUPROLIDE 2WK 1MG/0.2ML, 2.8 ML VIAL FOR SUB-Q, USE DIRECTED (Patient not taking: Reported on 01/05/2023) methylprednisolone(MEDROL 16 MG TAB) Take as directed (Patient not taking: Reported on 01/05/2023) PROGESTERONE 50 MG/ML IM OIL USE DIRECTED (Patient not taking: Reported on 01/05/2023) TETRACYCLINE 250 MG CAP TAKE DIRECTED (Patient not taking: Reported on 01/05/2023) ZOLOFT 50 MG TAB Take one(1) tablet daily. (Patient not taking: Reported on 01/05/2023) FAMILY HISTORY Problem Relation Age of Onset Alcohol/Drug Father Allergies Mother Allergies Sister Breast Cancer Mother Cancer Paternal Grandfather Diabetes Maternal Grandfather Social History Tobacco Use Smoking status: Never Smokeless tobacco: Never Substance Use Topics Alcohol use: Yes Comment: socially Drug use: Never BP 128/66 Pulse 84 Temp 36.6 C (97.8 F) (Tympanic) Resp 18 Wt 97.3 kg (214 lb 6.4 oz) LMP (LMP Unknown) SpO2 97% Review of Systems Constitutional: Negative for chills, fever and malaise/fatigue. HENT: Negative for congestion, ear discharge, ear pain, sinus pain and sore throat. Eyes: Negative for blurred vision, pain, discharge and redness. Respiratory: Negative for cough, hemoptysis, sputum production, shortness of breath, wheezing and stridor. Cardiovascular: Negative for chest pain. Gastrointestinal: Negative for abdominal pain, diarrhea, nausea and vomiting. Genitourinary: Positive for flank pain and frequency. Negative for dysuria, hematuria and urgency. Musculoskeletal: Positive for back pain. Negative for myalgias. Skin: Negative for itching and rash. Neurological: Negative for dizziness and headaches. Objective Physical Exam Constitutional: General: She is not in acute distress. Appearance: She is not diaphoretic. HENT: Head: Normocephalic. Mouth/Throat: Mouth: Mucous membranes are moist. Pharynx: Oropharynx is clear. No oropharyngeal exudate or posterior oropharyngeal erythema. Eyes: Conjunctiva/sclera: Conjunctivae normal. Pupils: Pupils are equal, round, and reactive to light. Cardiovascular: Rate and Rhythm: Normal rate and regular rhythm. Heart sounds: Normal heart sounds. Pulmonary: Effort: Pulmonary effort is normal. No tachypnea, accessory muscle usage or respiratory distress. Breath sounds: Normal breath sounds. No stridor. No wheezing, rhonchi or rales. Abdominal: Palpations: Abdomen is soft. Tenderness: There is no abdominal tenderness. There is no right CVA tenderness, left CVA tenderness, guarding or rebound. Musculoskeletal: Cervical back: Normal range of motion and neck supple. No rigidity or tenderness. Back: Comments: Slight tenderness to the highlighted area. No spinal tenderness. No erythema edema noted. Lymphadenopathy: Cervical: No cervical adenopathy. Skin: General: Skin is warm and dry. Neurological: Mental Status: She is alert and oriented to person, place, and time. ASSESSMENT/PLAN: 1. Hematuria, unspecified type - ICD9: 599.70, ICD10: R31.9 - UA DIP, URINE (POC) - URINE CULTURE Patient denied any trauma. Rates pain 1-2 out of 10. Pain has significantly improved. No evidence of abdominal tenderness. Urine culture will be obtained. No antibiotics at today's visit. Treat accordingly to test results. Large amount of blood was noted on urine dip. Differentials include kidney stone or UTI. Importance was stressed to patient for follow-up with PCP or urology 3 to 5 days for repeat urinalysis and further evaluation of hematuria. Patient was educated on supportive therapies. Patient was instructed to immediately proceed to emergency room for any new, worsening, or symptoms lasting longer than anticipated. The patient's clinical presentation is otherwise unremarkable at this time. Based on exam and clinical finding, the patient is stable for discharge. Plan of care was discussed with patient. Patient verbalizes understanding and agrees to plan of care. This note was generated using [employer] software. It may contain errors in wording, punctuation, or spelling. Daniel Justice APRN.MISBAH documented in this encounter [facility] Discharge summary Note Date & Type Note Facility Discharge summary Note Date/Time December 12, 2023 1:17pm [facility] [address] [place] [address]. [address] [place] [address] / REHABILITATION SERVICES DISCHARGE SUMMARY MR#: [id number] Acct: [id number] Name: ZAKJUDAH JIMENEZ Rep #: [id number] : 1975 48 From: Nicola COX T Referring Dr.: Dr. Flavio Hudson MD Status: REG RCR Insurance: [facility] SELF PAY INSURANCE Discharge Summary D/C summary: It has been my pleasure to treat JUDAH CRESPO referred by Dr. Flavio Hudson MD, with the diagnosis of Cervical Spine for a total of 8 visit(s). Discharge Date: 12/12/23 Please see the following information for a summary of their discharge status. Subjective Subjective: Pt. reports having 3-4/10 pain at rest, but does go up to about 6/10with activities. Pt. doers have some N/T mostly with sleeping. Pain Cervical: Pain Intensity (Out of 10): 3 Overall Improvement % Improvement: 0 Objective Objective/Function: Pt. reports continues to have increased pain in the AMs, then is pretty steady as the day goes on. She does report bilateral N/T in her thumb, index finger and middle finger of BUEs as night (only at night). ROM: B shoulders: full ROM without increase in symptoms. CERVICAL SPINE: AROM flexion nil loss NE, ext nil loss NE, rotation L nil loss NE, rotation R min loss increase NW, SB nil loss bilat NE. Pt. did have full ROM of cervical spine without increase in symptoms. Pt. has no myotomal weakness. She had negative testing with compression. I was not able to elicit any distal neuro symptoms. She continues to be tender along insertion of levator scap at R side of cervical spine. Pt. reports minimal progress at this point in time. I am recommending that she follow back up with physician at this point in time. She has tried traction, manual therapy, stretching, US without any lasting relief. She reports nothing really effected her initial symptoms. I was not ableto increase or reduce her neck pain except with levator scap stretching. She reports this made it worse when tried previously. Her symptoms do not seem to be discogenic in nature but more muscular. With that being said I would have expected her symptoms to be better with what was tried. I am referring her back to physician at this point in time. Goals Goal 1:: Patient will report participation in home exercise program activities aminimum of 5 days per week, as adjunct to skilled physical therapy intervention in preparation for independent home management upon discharge. Goal Progress: Progressing Goal 2:: Patient will maintain proper posture t/o tx session to demo increased scap s/s Goal Progress: Progressing Goal 3:: Patient will demo full AROM of the cervical spine without pain Goal Progress: Not Progressing Goal 4:: Patient will report 80% improvement Goal Progress: Not Progressing Plan Plan: DC back to physician further further evaluation. D/C Information Discharge Comments: Pt. will be DC from PT at this point in time. We tried manual therapy, traction, US and massage. She has not had much relief with Pt thus far. I advised her to continue with some of the exercises, but to also follow up with her physician for further evaluation. d/c sentence: If there are questions or concerns regarding this patient's physical therapy, please feel free to call me at [phone]. Thank you for the referral of thispatient. Sincerely, Nicola Whalen, DPT Balance/Gait/Functional tests Balance/Special Test Scores Oswestry Neck Score: 7 Improvement % Improvement: 0 <Electronically signed by Nicola Whalen DPT> 12/12/23 1317 CC: Dr. Flavio Hudson MD ~ CLS Signed [facility] Work Phone: Evaluation note Note Date & Type Note Facility Evaluation note No assessment information availa ble [facility] Work Phone: Evaluation note Note Date & Type Note Facility Evaluation note Diagnosis Hematuria, unspecified type- Primary documented in this encounter [facility] Evaluation note Note Date & Type Note Facility Evaluation note Diagnosis Onset Date Spondylolisthesis, cervical region acute [facility] Work Phone: Evaluation note Note Date & Type Note Facility Evaluation note Diagnosis Itching in the vaginal area- Primary Pruritus of genital organs Vaginal itching Pruritus of genital organs documented in this encounter [facility] Discharge instructions Note Date & Type Note Facility Hospital Discharge instructions Ambulatory OrdersPain Management Location: None Selected [facility] Work Phone: Advance Directives No Advanced Directives Records Found Advance Directive Response Recorded Date/ Time Advance Directives Yes August 28, 2016 1:34pm Living Will Yes February 19, 2018 11 :14am Power of Broke Handler Yes February 19, 2018 11:14am Advance Directive Response Recorded Date/ Time Advance Directives Yes August 28, 2016 12:34pm Living Will Yes February 19, 2018 10 :14am Power of Broke Handler Yes February 19, 2018 10:14am Advance Directive Response Recorded Date/ Time Advance Directives Yes August 28, 2016 1:34pm Living Will Yes January 22, 2023 1:18pm Power of Broke Handler Yes January 22 1:18pm Advance Directive Response Recorded Date/ Time Name of Medical Power of Broke Handler January 22, 2023 1:18pm Advance Directives Yes August 28, 2016 1:34pm Living Will Yes January 22, 2023 1:18pm Power of Broke Handler Yes January 22 1:18pm Advance Directive Response Recorded Date/ Time Advance Directives Yes August 28, 2016 12:34pm Living Will Yes January 22, 2023 12:18pm Power of Broke Handler Yes January 22 12:18pm Chief Complaint and Reason for Visit Chief Complaint SCREENING Chief Complaint RIGHT FLANK PAIN Chief Complaint RIGHT FLANK PAIN KUB- URETERAL STONE Chief Complaint RIGHT FLANK PAIN KUB- URETERAL STONE RT ESWL ABNORMAL FINDING ON CT SCAN KUB Chief Complaint RIGHT FLANK PAIN KUB- URETERAL STONE RT ESWL ABNORMAL FINDING ON CT SCAN KUB BACK FLANK PAIN SINCE KIDNEY STONE / RX HERE STONES Chief Complaint RIGHT FLANK PAIN KUB- URETERAL STONE RT ESWL ABNORMAL FINDING ON CT SCAN KUB STONES BACK FLANK PAIN SINCE KIDNEY STONE / RX HERE Chief Complaint SCREENING/E ORDERS D Shiv HUDSON Chief Complaint CERVICALGIA/R SHOULD ER PAIN/TRIGGER POINT RX HERE Chief Complaint CERVICALGIA/R SHOULD ER PAIN/TRIGGER POINT RX HERE CERVICAL RAD CERVICAL SPINE Room 3 Reason for Visit Spondylolisthesis, c ervical region Family History No Family History Records Found Relationship Condition Age at Onset Recorded Date/T kaushal mother Malignant neoplasm Unknown father Chronic obstructive pulmonary disease Unk nown grandfather Myocardial infarction Unknown Summary Purpose Additional Source Comments Goals (unrecognized section and content) Goals may be documented in a n alternate sectionGoals may be documented in an alternate sectionGoals may be documented in an alternate sectionGoals may be documented in an alternate sectionGoals may be documented in an alternate sectionGoals may be documented in an alternate sectionGoals may be documented in an alternate sectionGoals may be documented in an alternate sectionGoals may be documented in an alternate section Source Comments (unrecognize d section and content) In the event this informatio n is protected by the Federal Confidentiality of Alcohol and Drug Abuse Patient Records regulations: The Federal rules restrict any use of the information to criminally investigate or prosecute any alcohol or drug abuse patient.[facility] the event this information is protected by the Federal Confidentiality of Alcohol and Drug Abuse Patient Records regulations: The Federal rules restrict any use of the information to criminally investigate or prosecute any alcohol or drug abuse patient.[facility] Reason for Visit (unrecogniz ed section and content) Reason Comments Hematuria Pt reported mid back pain x4 days. Reason Comments Vaginal Problem Burning, itching, re dness Care Teams (unrecognized sec tion and content) Team Status: Active Member Role Status Dates Dr. Flavio Hudson MD Family Provider Active Dr. Flavio Hudson MD Primary Care Provider Active Team Status: Inactive Member Role Status Dates Dr. Flavio Hudson MD Primary Care Provide r, Attending Provider, Referring Provider Active Team Status: Inactive Member Role Status Dates Dr. Flavio Hudson MD Primary Care Provider, Attending P rovider Active Team Status: Inactive Member Role Status Dates Dr. Flavio Hudson MD Primary Care Provider Active Dr. Nirmala Barrios MD Attending Provider, Referring P rovider Active Team Status: Active Member Role Status Dates Dr. Flavio Hudson MD Primary Care Provide r, Attending Provider, Referring Provider Active Team Status: Inactive Member Role Status Dates Dr. Flavio Hudson MD Primary Care Provider Active Dr. Tess De La O DO Attending Provider, Referrin g Provider Active Team Status: Inactive Member Role Status Dates Dr. Flavio Hudson MD Primary Care Provider, Referring P rovider Active Dr. Garrison Singh MD Attending Provider Active Team Status: Inactive Member Role Status Dates Dr. Flavio Hudson MD Primary Care Provider Active Dr. Bob Barnes MD Attending Provider Active INFORMATION SOURCE (unrecogn ized section and content) DATE CREATED AUTHOR 06/23/2024 [facility] DATE CREATED AUTHOR AUTHOR'S SHRUTI ATION 11/07/2024 [facility] FOR RECORDS PERTAINING TO PATIENTS WHO ARE OR HAVE BEEN ENROLLED IN A CHEMICAL DEPENDENCY/SUBSTANCEABUSE PROGRAM, SOME INFORMATION MAY BE OMITTED. This clinical summary was aggregated from multiple sources. Caution should be exercised in using it in the provision of clinical care. This summary normalizes information from multiple sources, and as a consequence, information in this document may materially change the coding, format and clinical context of patient data. In addition, data may be omitted in some cases. CLINICAL DECISIONS SHOULD BE BASED ON THE PRIMARY CLINICAL RECORDS. [employer] provides no warranty or guarantee of the accuracy or completeness of information in this document.
== END | disposition home or self-care (01) ==
LOC: MFPLAB 09:38
PROVIDERS: PCP Family Medicine; Referring Provider Family Medicine; Visit Provider Family Medicine
DX: E66.812 Obesity, class 2 (principal); I10 Essential (primary) hypertension; Z68.37 Body mass index [BMI] 37.0-37.9, adult
CPT/HCPCS: 36415; 80053; 83036; 85025

== ENCOUNTER → 2025-06-07 | Outpatient (CLI) | payer OTHER, SELFPAY ==
--- NOTE | 2025-06-07 09:55 | BI_ITS ---
EXAM: SCRN MAMM (CAD)W/BEREKET BILAT DATE: 06/07/2025 CLINICAL HISTORY: F, Age 50 y/o , FAMILY HX BREAST CANCER - MOTHER TECHNIQUE: SCRN MAMM (CAD)W/BEREKET BILAT COMPARISON: Prior exam(s) dated 06/05/2024, 06/03/2023, and 05/07/2022. FINDINGS: TISSUE DENSITY: There are scattered areas of fibroglandular density. Benign round microcalcifications are seen in both breasts. No suspicious masses, suspicious cluster of microcalcifications, architectural distortion or secondary sign of malignancy is identified in either breast. BI/SCRN MAMM (CAD)W/BEREKET BILAT IMPRESSION: Benign screening mammogram. OVERALL FINAL ASSESSMENT BI-RADS 2: BENIGN RECOMMENDATION: Routine annual follow-up in 1 Year A letter with findings and recommendations will be mailed to the patient. Reading Location: [id number]
== END | disposition home or self-care (01) ==
LOC: OPBI 09:54
PROVIDERS: PCP Family Medicine; Referring Provider Family Medicine; Visit Provider Family Medicine
DX: Z12.31 Encounter for screening mammogram for malignant neoplasm of breast (principal); Z80.3 Family history of malignant neoplasm of breast
CPT/HCPCS: 77063; 77067

== ENCOUNTER → 2025-10-15 | Outpatient (CLI) | payer OTHER, SELFPAY ==
--- OUTSIDE RECORDS SUMMARY | 2025-10-15 11:44 | XMS RPT_ITS | CCD ---
Author Organization [facility] Care Team Providers Care Watershed Engineer Name Role Phone Unavailable Primary Care Provider Dr. Flavio Ely Primary Care Provider [phone] Dr. Flavio Hudson Referring Provider [phone] Garrison Singh Attending Provider [phone] Bob Barnes Attending Provider Unavailable Primary Care Provider Lizz Hudson MD, Dr. Muniz Primary Care Provider Dr. Flavio Hudson MD Attending Provider [phone] Dr. Flavio Hudson MD Referring Provider [phone] LORA MARQUEZ Attending Unavailable LORA MARQUEZ Attending Unavailable Flavio Hudson Attending Unavailable Flavio Hudson Referring Unavailable Flavio Hudson Primary Care Unavailable Flavio Hudson Attending Unavailable Flavio Hudson Referring Unavailable Flavio Hudson Primary Care Unavailable Sophie FIELD, Dr. Silvestre Attending Provider [phone] Allergies Allergy Classification Reported Allergen(s) Allergy Type Date of Onset Reaction(s) Facility (8 sources) Succinylcholine Drug Allergy 3 Other [facility] Comment on above: pseudocholisterase d efinciency (1 source) Succinylcholine Drug Allergy 4 [facility] Repository Medications Current Medications Medication Drug Class(es) Dates Sig (Normalized) Sig (Original) acetaminophen 500 mg oral tablet (14 sources) Start: 02-27-2018 take 2 tablets by mouth every eight hours Acetaminophen 500 MG tablet Active 1000 mg PO EVERY 8 HOURS 0 February 27, 2018 12:00am Start: 02-27-2018 take 1000 mg by mout h every eight hours Acetaminophen Active 1000 MG PO EVERY 8 HOURS February 27, 2018 12:00am bisoprolol fumarate 5 mg oral tablet (12 sources) beta-Adrenergic Barby Start: 12-12-2022 take 1 tablet by mouth at bedtime Bisoprolol Fumarate 5 mg tablet Active 5 mg PO AT BEDTIME January 22, 2023 12:00am Comment on above: Take by mouth daily at bedtime. COMPOUNDED PRESCRIPTION (3 sources) Start: 07-21-2009 COMPOUNDED PRESCRIPTION LEUPROLIDE 2WK [...] 2018 12:00am estradiol 2 mg oral tablet (3 sources) Estrogen Start: 07-21-2009 estradiol(ESTRAC E 2 MG TAB) TAKE DIRECTED 90 3 07/21/2009 Active Comment on above: TAKE DIRECTED ferrous sulfate 325 mg oral tablet (5 sources) Start: 02-27-2018 take 325 mg by mouth once daily Ferrous Sulfate Active 325 MG PO DAILY@0800 February 27, 2018 12:00am indapamide 1.25 mg oral tablet (5 sources) Thiazide-like Diuretic Start: 02-20-2024 take 1 tablet by mouth once daily Indapamide 1.25 mg tablet Active 1.25 mg PO daily February 20, 2024 12:00am labetalol hydrochloride 200 mg oral tablet (5 sources) beta-Adrenergic Barby Start: 08-24-2016 take 200 mg by mouth twice daily Labetalol Active 200 MG PO TWICE A DAY August 24, 2016 12:00am methylPREDNISolone 16 mg oral tablet (3 sources) Corticosteroid Start: 07-21-2009 methylprednisolo ne(MEDROL 16 MG TAB) Take as directed 4 0 07/21/2009 Active Comment on above: Take as directed polyethylene glycol 3350 78292 mg powder for oral solution (5 sources) Osmotic Laxative Start: 02-27-2018 take 17 g by mouth once daily Polyethylene Glycol 3350 Active 17 GM PO DAILY February 27, 2018 12:00am progesterone 50 mg/ml injectable solution (3 sources) Progesterone Start: 07-21-2009 PROGESTERONE 50 MG/ML IM OIL USE DIRECTED 3 3 07/21/2009 Active Comment on above: USE DIRECTED quinapril (3 sources) Angiotensin Converting Enzyme Inhibitor quinapril HCl (QUINAPRIL ORAL) Take by mouth. Active quinapril HCl (Q UINAPRIL ORAL) Take by mouth. 0 Active Comment on above: Take by mouth. ramipril 5 mg oral capsule (14 sources) Angiotensin Converting Enzyme Inhibitor Start: 09-16-2024 take 1 capsule by mouth once ramipril (ALTACE) 5 mg capsule Take 1 capsule by mouth every afternoon. 09/16/2024 Active Start: 02-20-2024 take 4 capsules by m outh once daily Ramipril 1.25 mg capsule Active 5 mg PO DAILY February 20, 2024 8:54am Start: 02-20-2024 take 5 mg by mouth once daily Ramipril Active 5 MG PO DAILY February 20, 2024 8:54am Start: 01-22-2023 End: 02-20-2024 take 1 capsule by mouth once daily Ramipril 1.25 mg capsule Discontinued 1.25 mg PO DAILY January 22, 2023 12:00am February 20, 2024 8:55am sertraline 50 mg oral tablet (3 sources) Serotonin Reuptake Inhibitor Start: 11-04-2006 ZOLOFT 50 MG TAB Take one(1) tablet daily. 0 11/04/2006 Active Comment on above: Take one(1) tablet d aily. tetracycline hydrochloride 250 mg oral capsule (3 sources) Tetracycline-class Antimicrobial Start: 07-21-2009 TETRACYCLINE 250 MG CAP TAKE DIRECTED 16 0 07/21/2009 Active Comment on above: TAKE DIRECTED valACYclovir 500 mg oral tablet (5 sources) Herpesvirus Nucleoside Analog DNA Polymerase Inhibitor, Herpes Simplex Virus Nucleoside Analog DNA Polymerase Inhibitor, Herpes Zoster Virus Nucleoside Analog DNA Polymerase Inhibitor Start: 02-20-2024 take 1 tablet by mouth once daily Valacyclovir 500 mg tablet Active 500 mg PO daily February 20, 2024 12:00am Completed/Discontinued Medications Medication Drug Class(es) Dates Sig (Normalized) Sig (Original) acetaminophen 325 mg / oxyCODONE hydrochloride 5 mg oral tablet (8 sources) Opioid Agonist Start: 01-29-2023 End: 02-20-2024 Oxycodone-Acetaminop hen (Percocet) 5-325 mg tablet Discontinued 1 {tbl} PO Q8H as needed for pain 20 5 0 January 29, 2023 February 20, 2024 8:55am Calculus of ureter Calculus of ureter cephalexin 500 mg oral capsule (8 sources) Cephalosporin Antibacterial Start: 01-29-2023 End: 02-20-2024 take 1 capsule by mouth every twelve hours Cephalexin 500 mg capsule Discontinued 500 mg PO EVERY 12 HOURS 6 3 0 January 29, 2023 12:00am February 20, 2024 8:55am post-operative naproxen 250 mg oral tablet (14 sources) Nonsteroidal Anti-inflammatory Drug Start: 02-27-2018 End: 02-20-2024 take 250-500 mg by mouth every eight hours as needed for pain Naproxen 250 MG tablet Discontinued 250 - 500 mg PO EVERY 8 HOURS NEEDED as needed for Mild Pain 30 0 February 27, 2018 12:00am February 20, 2024 8:55am oxyCODONE hydrochloride 5 mg oral tablet (14 sources) Opioid Agonist Start: 02-27-2018 End: 02-20-2024 take 5-10 mg by mouth every four hours as needed for pain Oxycodone 5 MG tablet Discontinued 5 - 10 mg PO EVERY 4 HOURS NEEDED as needed for Severe Pain (6-10/10) 28 7 0 February 27, 2018 12:00am February 20, 2024 8:55am Postoperative abdominal pain History of hysterectomy for benign disease Uterine leiomyoma Anemia due to chronic blood loss Anemia due to acute blood loss Excessive bleeding in premenopausal period Unspecified abdominal pain Acquired absence of both cervix and uterus Leiomyoma of uterus, unspecified Iron deficiency anemia secondary to blood loss (chronic) Acute posthemorrhagic anemia Excessive bleeding in the premenopausal period Problems Active Problems Problem Classification Problem Date Documented Date Episodic/Chronic Asthma (3 sources) Asthma; Translations: [Unspecified asthma, uncomplicated] 02-20-2024 Chronic Calculus of urinary tract (8 sources) Ureteric stone; Translations: [Calculus of ureter] 01-29-2023 Episodic Essential hypertension (3 sources) Hypertensive disorder; Translations: [Essential (primary) hypertension] 02-20-2024 Chronic Comment on above: CONTROLLED WITH MEDS Female infertility (3 sources) Female infertility; Translations: [Female infertility, unspecified] Onset: 12-03-2011 12-03-2011 Chronic Genitourinary symptoms and ill-defined conditions (1 source) Blood in urine; Translations: [Hematuria, unspecified] Episodic Other acquired deformities (3 sources) Spondylolisthesis; Translations: [Spondylolisthesis, cervical region] 02-20-2024 Episodic Other acquired deformities (1 source) Spondylolisthesis, cervical region; Translations: [Acquired spondylolisthesis] 02-20-2024 Episodic Other connective tissue disease (2 sources) Disorder of thorax 05-14-2024 Episodic Other female genital disorders (2 sources) Pruritus of vagina; Translations: [Other specified noninflammatory disorders of vagina] 11-04-2024 Episodic Other screening for suspected conditions (not mental disorders or infectious disease) (1 source) Encounter for screening mammogram for malignant neoplasm of breast; Translations: [Encounter for screening mammogram for malignant neoplasm of breast] Onset: 06-07-2025 Episodic Spondylosis; intervertebral disc disorders; other back problems (5 sources) Neck pain; Translations: [Cervicalgia] 02-20-2024 Episodic Unclassified (1 source) Obesity, class 2; Translations: [Obesity, class 2] Onset: 04-06-2025 Past or Other Problems Problem Classification Problem Date Documented Da te Episodic/Chronic Gastrointestinal hemorrhage (3 sources) Hematochezia; Translations: [Melena] Onset: 11-04-2006 11-04-2006 Episodic Results Test Name Value Interpretation Reference Range Facility Breast imaging reportOrdered By: Margarita Spencer on 06-07-2025 Study report [facility] Imaging Services [address] [place] [address] [id number] SCRN MAMM (CAD)W/BEREKET BILAT MR#: [id number] Acct: [id number] Name: JUDAH BETTENCOURT Rep #: [id number] : 1975 F 50 From: Scott Spencer DO PCP: Dr. Flavio Hudson MD Status: REG CLI Study:SCRN MAMM (CAD)W/BEREKTE BILAT Date of Exa m: 06/07/25 Exam# [id number] Ordering Dr: Chris Hudson MD EXAM: SCRN MAMM (CAD)W/BEREKET BILAT DATE: 06/07/2025 CLINICAL HISTORY: F, Age 50 y/o , FAMILY HX BREAST CANCER - MOTHER TECHNIQUE: SCRN MAMM (CAD)W/BEREKET BILAT COMPARISON: Prior exam(s) dated 06/05/2024, 06/03/2023, and 05/07/2022. FINDINGS: TISSUE DENSITY: There are scattered areas of fibroglandular density. Benign round microcalcifications are seen in both breasts. No suspicious masses, suspicious cluster of microcalcifications, architectural distortion or secondary sign of malignancy is identified in eitherbreast. BI/SCRN MAMM (CAD)W/BEREKET BILAT IMPRESSION: Benign screening mammogram. OVERALL FINAL ASSESSMENT BI-RADS 2: BENIGN RECOMMENDATION: Routine annual follow-up in 1 Year A letter with findings and recommendations will be mailed to the patient. Reading Location: [id number] CC: Dr. Flavio Hudson MD ~ [employer] Lead: Signed [facility] SCRN MAMM (CAD)W/BEREKET BILATo n 06-07-2025 SCRN MAMM (CAD)W/BEREKET BILAT [facility] Imaging Services [address] [place], [place] [address] SCRN MAMM (CAD)W/BEREKET BILAT MR#: [id number] Acct: [id number] Name: JUDAH BETTENCOURT Rep #: [id number] : 1975 F 50 From: Margarita Hou PCP: Dr. Flavio Hudson MD Status: [facility] Study: SCRN MAMM (CAD)W/BEREKET BILAT Date of Exam: 05/21 06/14 Exam# [id number] Ordering Dr: Flavio Hudson MD EXAM: SCRN MAMM (CAD)W/BEREKET BILAT DATE: 06/07/2025 CLINICAL HISTORY: F, Age 50 y/o , FAMILY HX BREAST CANCER - MOTHER TECHNIQUE: SCRN MAMM (CAD)W/BEREKET BILAT COMPARISON: Prior exam(s) dated 06/05/2024, 06/03/2023, and 05/07/2022. FINDINGS: TISSUE DENSITY: There are scattered areas of fibroglandular density. Benign round microcalcifications are seen in both breasts. No suspicious masses, suspicious cluster of microcalcifications, architectural distortion or secondary sign of malignancy is identified in either breast. BI/SCRN MAMM (CAD)W/BEREKET BILAT IMPRESSION: Benign screening mammogram. OVERALL FINAL ASSESSMENT BI-RADS 2: BENIGN RECOMMENDATION: Routine annual follow-up in 1 Year A letter with findings and recommendations will be mailed to the patient. Reading Location: [id number] CC: Dr. 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 Judah is a 50 year old who presents for an annual gynecologic exam without complaints. 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 History Comments: Sexual Activity: Yes; Male Contraception: Surgical PAST MEDICAL HISTORY Diagnosis Date Adjustment disorder with depressed mood Infertility, female 1997 Uterine fibroid 1997 Myomectomy 1999 Uterine polyp 2014 PAST SURGICAL HISTORY Procedure Laterality Date DELIVERY ONLY 2009 , low cervical DELIVERY ONLY 2006 DELIVERY ONLY 2016 ENTERORRHAPHY SINGLE PERFORATION 11/13/2005 MYOMECTOMY 1-4 MYOMAS W/250 GM/< ABDOMINAL APPR 10/21/1999 VAGINAL HYSTERECTOMY 2017 ovaries remain FAMILY HISTORY Problem Relation Age of Onset Alcohol/Drug Father Allergies Mother Breast Cancer Mother Allergies Sister Cancer Paternal Grandfather Diabetes Maternal Grandfather SOCIAL HISTORY Social History Tobacco Use Smoking status: Never Smokeless tobacco: Never Vaping Use Vaping status: Never Used Substance Use Topics Alcohol use: Yes Comment: socially Drug use: Never REVIEW OF SYSTEMS Abdomen: No abdominal pain, nausea, vomiting, diarrhea, or constipation. No bloating, early satiety, indigestion, or increased flatulence. Bladder: No dysuria, gross hematuria, urinary frequency, urinary urgency, or incontinence. Breast: No breast lumps, nipple d/c, overlying skin changes, redness or skin retraction. Allergies and current medication updated:Yes SENSITIVE EXAM: The sensitive examination was discussed with the Patient or Patient's Authorized Facilities Engineer. As applicable, any other physician, advance practice provider, medical student, or other health professional student that will be observing or involved in the sensitive examination for educational or training purposes was discussed with the Patient or Authorized Facilities Engineer. The Patient or Authorized Facilities Engineer has agreed to proceed with the sensitive examination. (Sensitive examination includes inspection and/or palpation of the breasts, pelvis, prostate and anorectal regions). EXAM: BP 120/84 Ht 5' 2 (1.58m) Wt 218 lb (98.9kg) LMP 02/18/2017 BMI 39.86 kg/(m2). GENERAL: pleasant, female in no apparent distress HEENT: Normocephalic, atraumatic, mucus membranes moist, and no lesions NECK: Supple, full range of motion, no adenopathy, and thyroid normal DERMATOLOGY: Normal, without lesions, non-icteric, and non-hirsute BREAST: soft, non-tender, symmetric, no dominant mass, normal nipple-areolar complex, no lymphadenopathy, and no nipple discharge CHEST: Normal inspiratory effort ABDOMEN: soft, non-tender, and no masses PELVIC: external genitalia normal, normal Bartholin's glands, urethra, Crosby's glands, no vulvar lesions, no cervical lesions, good vaginal support, physiologic discharge present, normal appearing perineal body and perianal region, well estrogenized BIMANUAL: no adnexal masses, non-tender, and uterus surgically absent RECTOVAGINAL: deferred. NEURO: alert and oriented x3,exam grossly non-focal EXTREMITIES: normal ASSESSMENT/PLAN: 1) Health maintenance: Pap/HPV up to date. 2) Contraception: hysterectomy. Contraceptive options reviewed and information provided. 3) STD screening: Declined STI check. 4) Follow up one year or sooner as needed Lora Marquez MD Allergies As of Date: 05/19/2025 (No Known Allergies) Date Reviewed: 05/19/2025 Reviewed by: Annemarie Sena MA - Fully Assessed Reason for Visit: Well Woman [1463] Primary Visit Diagnosis:Encounter for gynecological examination (general) (routine) without abnormal findings [Z01.419] Prescriptions as of 05/19/2025 - indapamide (LOZOL) 1.25 mg tablet Take 1.25 mg by mouth once daily. - ramipril (ALTACE) 5 mg capsule Take 1 capsule by mouth every afternoon. - VALTREX 500 mg tablet Take 500 mg by mouth as needed. - bisoprolol (ZEBETA) 5 mg tablet Take by mouth daily a (more content not included)... Normal [facility] Absolute lymphocyte countOrd ered By: Flavio Hudson on 03-30-2025 Lymphocytes Auto (Unsp spec) [#/Vol] 1.56 10*3/uL 0.83-4.51 [facility] Absolute neutrophil countOrd ered By: Flavio Hudson on 03-30-2025 Neutrophils (Bld) [#/Vol] 4.2 10*3/uL 2.0-7.7 [facility] Anion gap in Serum or Plasma Ordered By: Flavio Hudson on 03-30-2025 Anion gap [Moles/Vol] 12 mmol/L 5-15 [facility] Automated lymphocyte count a s percentage of total leukocytesOrdered By: Flavio Hudson on 03-30-2025 Lymphocytes/100 WBC Auto (Unsp spec) 24.2 % 19-41 [facility] BUN/creatinine ratioOrdered By: Flavio Hudson on 03-30-2025 Urea nitrogen/Creatinine [Mass ratio] 15.2 mg/mg 10- [facility] Basophil percentageOrdered B y: Flavio Hudson on 03-30-2025 Basophils/100 WBC (Bld) 0.6 % 0-[address] [facility] Bilirubin, totalOrdered By: Flavio Hudson on 03-30-2025 Bilirubin [Mass/Vol] 0.52 mg/dL 0.00-1.[address] [facility] CBC W/Diff, Automatedon 03-21-2024 Absolute Lymph 1.56 X10 3/uL Normal 0.83-4.51 [facility] Comment on above: Order Comment: Order Date: 03/30/25 Order Info: 0184-1 - CBCD Performed By: #### L [id number], [id number], L100.0100 #### [facility] [address] [place], [address] Absolute Neut 4.2 X10 3/uL Normal 2.0-7.7 [facility] Comment on above: Order Comment: Order Date: 03/30/25 Order Info: 0184-1 - CBCD Performed By: #### L [id number], [id number], L100.0100 #### [facility] [address] [place], [address] Basophils/100 WBC (Bld) 0.6 % Normal 0-[address] [facility] Comment on above: Order Comment: Order Date: 03/30/25 Order Info: 0184-1 - CBCD Performed By: #### L [id number], [id number], L100.0100 #### [facility] [address] [place], [address] Eosinophils/100 WBC (Bld) 2.0 % Normal 0-5 [facility] Comment on above: Order Comment: Order Date: 03/30/25 Order Info: 0184-1 - CBCD Performed By: #### L [id number], [id number], L100.0100 #### [facility] [address] [place], [address] Erythrocyte distribution width (RBC) [Ratio] 13.2 % Normal 11.6-14.6 [facility] Comment on above: Order Comment: Order Date: 03/30/25 Order Info: 0184-1 - CBCD Performed By: #### L [id number], [id number], L100.0100 #### [facility] [address] [place], [place], [id number] (113) Hematocrit (Bld) [Volume fraction] 44.4 % Normal 37-47 [facility] Comment on above: Order Comment: Order Date: 03/30/25 Order Info: 0184-1 - CBCD Performed By: #### L [id number], [id number], L100.0100 #### [facility] [address] [place], [address] Hemoglobin (Bld) [Mass/Vol] 14.6 g/dL Normal 12.0-15.0 [facility] Comment on above: Order Comment: Order Date: 03/30/25 Order Info: 0184-1 - CBCD Performed By: #### L [id number], [id number], L100.0100 #### [facility] [address] [place], [address] IG% 0.500 Normal 0.0-0.9 [facility] Comment on above: Order Comment: Order Date: 03/30/25 Order Info: 0184-1 - CBCD Result Comment: IG% - Immature Granulocytes (promyelocytes, myelocytes and metamyelocytes) > 1% indicates that a LEFT SHIFT is Present. Performed By: #### L [id number], [id number], L100.0100 #### [facility] [address] [place], [address] Lymphocytes/100 WBC (Bld) 24.2 % Normal 19-41 [facility] Comment on above: Order Comment: Order Date: 03/30/25 Order Info: 0184-1 - CBCD Performed By: #### L [id number], [id number], L100.0100 #### [facility] [address] [place], [address] MCH (RBC) [Entitic mass] 29.1 pg Normal 27.0-32.0 [facility] Comment on above: Order Comment: Order Date: 03/30/25 Order Info: 0184-1 - CBCD Performed By: #### L [id number], [id number], L100.0100 #### [facility] [address] [place], [address] MCHC (RBC) [Mass/Vol] 32.9 g/dL Normal 32-36 [facility] Comment on above: Order Comment: Order Date: 03/30/25 Order Info: 0184-1 - CBCD Performed By: #### L [id number], [id number], L100.0100 #### [facility] [address] [place], [address] MCV (RBC) [Entitic vol] 88.4 fL Normal 81-99 [facility] Comment on above: Order Comment: Order Date: 03/30/25 Order Info: 0184-1 - CBCD Performed By: #### L [id number], [id number], L100.0100 #### [facility] [address] [place], [address] Monocytes/100 WBC (Bld) 7.0 % Normal 0-10 [facility] Comment on above: Order Comment: Order Date: 03/30/25 Order Info: 0184-1 - CBCD Performed By: #### L [id number], [id number], L100.0100 #### [facility] [address] [place], [address] Neutrophils/100 WBC (Bld) 65.7 % Normal 47-70 [facility] Comment on above: Order Comment: Order Date: 03/30/25 Order Info: 0184-1 - CBCD Performed By: #### L [id number], [id number], L100.0100 #### [facility] [address] [place], [address] Nucleated RBC (Bld) [#/Vol] 0 10*3/uL Normal 0-5 [facility] Comment on above: Order Comment: Order Date: 03/30/25 Order Info: 0184-1 - CBCD Performed By: #### L [id number], [id number], L100.0100 #### [facility] [address] [place], [address] Platelet mean volume (Bld) [Entitic vol] 10.2 fL Normal 6.2-12.0 [facility] Comment on above: Order Comment: Order Date: 03/30/25 Order Info: 0184-1 - CBCD Performed By: #### L [id number], [id number], L100.0100 #### [facility] [address] [place], [address] Platelets (Bld) [#/Vol] 295 10*3/uL Normal 150-450 [facility] Comment on above: Order Comment: Order Date: 03/30/25 Order Info: 0184-1 - CBCD Performed By: #### L [id number], [id number], L100.0100 #### [facility] [address] [place], [address] RBC (Bld) [#/Vol] 5.02 10*6/uL Normal 4.2-5.4 [facility] Comment on above: Order Comment: Order Date: 03/30/25 Order Info: 0184-1 - CBCD Performed By: #### L [id number], [id number], L100.0100 #### [facility] [address] [place], [address] RDW SD 42.7 fl Normal 35.1-43.9 [facility] Comment on above: Order Comment: Order Date: 03/30/25 Order Info: 0184-1 - CBCD Performed By: #### L [id number], [id number], L100.0100 #### [facility] [address] [place], [address] WBC (Bld) [#/Vol] 6.5 10*3/uL Normal 4.4-11.0 [facility] Comment on above: Order Comment: Order Date: 03/30/25 Order Info: 0184-1 - CBCD Performed By: #### L [id number], [id number], L100.0100 #### [facility] [address] [place], [address] Carbon dioxide, total [Moles /volume] in Central venous bloodOrdered By: Flavio Hudson on 03-30-2025 CO2 [Moles/Vol] 25.8 mmol/L 21.0-32.0 [facility] Chloride assayOrdered By: Chris Hudson on 03-30-2025 Chloride [Moles/Vol] 101 mmol/L 98-[address] [facility] Comprehensive Metabolic Prof ilon 03-30-2025 Albumin [Mass/Vol] 4.3 g/dL Normal 3.5-5.0 [facility] Comment on above: Order Comment: Order Date: 03/30/25 Order Info: [id number] - CMP Performed By: #### L [id number], [id number], L100.0100 #### [facility] [address] [place], [address] Albumin/Globulin [Mass ratio] 1.4 {ratio} Normal 0.9-2.4 [facility] Comment on above: Order Comment: Order Date: 03/30/25 Order Info: 0786-1 - CMP Performed By: #### L 501.9985, L500.4050, L100.0100 #### [facility] [address] [place], [address] ALK PHOS 64 U/L Normal 35-104 [facility] Comment on above: Order Comment: Order Date: 03/30/25 Order Info: 0786-1 - CMP Performed By: #### L 501.9985, L500.4050, L100.0100 #### [facility] [address] [place], [address] ALT [Catalytic activity/Vol] 28 U/L Normal <=34 [facility] Comment on above: Order Comment: Order Date: 03/30/25 Order Info: 0786-1 - CMP Performed By: #### L 501.9985, L500.4050, L100.0100 #### [facility] [address] [place], [address] AST [Catalytic activity/Vol] 22 U/L Normal <=31 [facility] Comment on above: Order Comment: Order Date: 03/30/25 Order Info: 0786-1 - CMP Performed By: #### L 501.9985, L500.4050, L100.0100 #### [facility] [address] [place], [address] Bilirubin [Mass/Vol] 0.52 mg/dL Normal 0.00-1.[address] [facility] Comment on above: Order Comment: Order Date: 03/30/25 Order Info: 0786-1 - CMP Performed By: #### L 501.9985, L500.4050, L100.0100 #### [facility] [address] [place], [address] BUN/CRE 15.2 RATIO Normal 10-20 [facility] Comment on above: Order Comment: Order Date: 03/30/25 Order Info: 0786-1 - CMP Performed By: #### L 501.9985, L500.4050, L100.0100 #### [facility] [address] [place], [address] Calcium [Mass/Vol] 10.4 mg/dL Normal 7.6-11.0 [facility] Comment on above: Order Comment: Order Date: 03/30/25 Order Info: 0786-1 - CMP Performed By: #### L 501.9985, L500.4050, L100.0100 #### [facility] [address] [place], [address] Chloride [Moles/Vol] 101 mmol/L Normal 98-[address] [facility] Comment on above: Order Comment: Order Date: 03/30/25 Order Info: 0786-1 - CMP Performed By: #### L 501.9985, L500.4050, L100.0100 #### [facility] [address] [place], [address] CO2 [Moles/Vol] 25.8 mmol/L Normal 21.0-32.0 [facility] Comment on above: Order Comment: Order Date: 03/30/25 Order Info: 0786-1 - CMP Performed By: #### L 501.9985, L500.4050, L100.0100 #### [facility] [address] [place], [address] Creatinine [Mass/Vol] 0.93 mg/dL Normal 0.70-1.20 [facility] Comment on above: Order Comment: Order Date: 03/30/25 Order Info: 0786-1 - CMP Performed By: #### L 501.9985, L500.4050, L100.0100 #### [facility] [address] [place], [address] GAP 12 Normal 5-15 [facility] Comment on above: Order Comment: Order Date: 03/30/25 Order Info: 0786-1 - CMP Performed By: #### L 501.9985, L500.4050, L100.0100 #### [facility] [address] [place], [address] GFR/1.73 sq M.predicted among non-blacks MDRD (S/P/Bld) [Vol rate/Area] 76 mL/min/{1.73_m2} Normal >60 [facility] Comment on above: Order Comment: Order Date: 03/30/25 Order Info: 0786-1 - CMP Result Comment: mL/m in/1.73m2 CKD-EPI Creatinine Equation (2020) Performed By: #### L 501.9985, L500.4050, L100.0100 #### [facility] [address] [place], [address] Globulin (S) [Mass/Vol] 3.0 g/dL Normal 2.2-4.2 [facility] Comment on above: Order Comment: Order Date: 03/30/25 Order Info: 0786-1 - CMP Performed By: #### L [id number], L500.4050, L100.0100 #### [facility] [address] [place], [address] Glucose [Mass/Vol] 110 mg/dL High 70-99 [facility] Comment on above: Order Comment: Order Date: 03/30/25 Order Info: 0786-1 - CMP Performed By: #### L [id number], L500.4050, L100.0100 #### [facility] [address] [place], [address] Potassium [Moles/Vol] 4.2 mmol/L Normal 3.3-5.1 [facility] Comment on above: Order Comment: Order Date: 03/30/25 Order Info: 0786-1 - CMP Performed By: #### L [id number], L500.4050, L100.0100 #### [facility] [address] [place], [address] Sodium [Moles/Vol] 139 mmol/L Normal 133-145 [facility] Comment on above: Order Comment: Order Date: 03/30/25 Order Info: 0786-1 - CMP Performed By: #### L [id number], L500.4050, L100.0100 #### [facility] [address] [place], [place], [id number] T PROT 7.3 g/dL Normal 5.9-8.4 [facility] Comment on above: Order Comment: Order Date: 03/30/25 Order Info: 0786-1 - CMP Performed By: #### L [id number], L500.4050, L100.0100 #### [facility] [address] [place], [address] Urea nitrogen [Mass/Vol] 14 mg/dL Normal 4-19 [facility] Comment on above: Order Comment: Order Date: 03/30/25 Order Info: 0786-1 - CMP Performed By: #### L 501.9985, L500.4050, L100.0100 #### [facility] [address] [place], [place], [address] Eosinophil percentageOrdered By: Flavio Hudson on 03-30-2025 Eosinophils/100 WBC (Bld) 2.0 % 0-5 [facility] Erythrocyte distribution wid th ratioOrdered By: Flavio Hudson on 03-30-2025 Erythrocyte distribution width (RBC) [Ratio] 13.2 % 11.6-14.6 [facility] Erythrocyte distribution wid th standard deviationOrdered By: Flavio Hudson on 03-30-2025 Erythrocyte distribution width (RBC) [Ratio] 42.7 fl 35.1-43.9 [facility] Glomerular filtration rate ( GFR) estimation/1.73 sq m using serum, plasma, or whole bOrdered By: Flavio Hudson on 03-30-2025 GFR/1.73 sq M.predicted among non-blacks MDRD (S/P/Bld) [Vol rate/Area] 76 mL/min/{1.73_m2} >60 [facility] Comment on above: mL/min/1.73m2 CKD-EP I Creatinine Equation (2020) Hematocrit Auto (Bld) [Volum e fraction]Ordered By: Flavio Hudson on 03-30-2025 Hematocrit (Bld) [Volume fraction] 44.4 % 37-47 [facility] Hemoglobin A1con 03-30-2025 HbA1c (Bld) [Mass fraction] 5.7 % Normal <=5.6 [facility] Comment on above: Order Comment: Order Date: 03/30/25 Order Info: [id number] - A1C Result Comment: Norm al < 5.7 % Prediabetic 5.7 - 6.4 % Diabetic >or= 6.5 % Please note range changes. Performed By: #### L 501.9985, L500.4050, L100.0100 #### [facility] [address] [place], [address] Hemoglobin A1c percentageOrd ered By: Flavio Hudson on 03-30-2025 HbA1c (Bld) [Mass fraction] 5.7 % <5.7 [facility] Comment on above: Normal < 5.7 % Predi abetic 5.7 - 6.4 % Diabetic >or= 6.5 % Please note range changes. Hemoglobin measurementOrdere d By: Flavio Hudson on 03-30-2025 Hemoglobin (Bld) [Mass/Vol] 14.6 g/dL 12.0-15.0 [facility] Immature granulocytes/100 WB C Auto (Bld)Ordered By: Flavio Hudson on 03-30-2025 Immature granulocytes/100 WBC (Bld) 0.500 % 0.0-0.9 [facility] Comment on above: IG% - Immature Granu locytes (promyelocytes, myelocytes and metamyelocytes) > 1% indicates that a LEFT SHIFT is Present. Laboratory - Chemistry and C hemistry - challengeOrdered By: Flavio Hduson on 03-30-2025 AST [Catalytic activity/Vol] 22 U/L <32 [facility] MCV (mean corpuscular volume ) determinationOrdered By: Flavio Hudson on 03-30-2025 MCV (RBC) [Entitic vol] 88.4 fL 81-[address] [facility] Mean corpuscular hemoglobin (MCH) determinationOrdered By: Flavio Hudson on 03-30-2025 MCH (RBC) [Entitic mass] 29.1 pg 27.0-32.0 [facility] Mean corpuscular hemoglobin concentration (MCHC) determinationOrdered By: Flavio Hudson on 03-30-2025 MCHC (RBC) [Mass/Vol] 32.9 g/dL 32-36 [facility] Mean platelet volume determi nationOrdered By: Flavio Hudson on 03-30-2025 Platelet mean volume (Bld) [Entitic vol] 10.2 fL 6.2-12.0 [facility] Monocyte percentageOrdered B y: Flavio Hudson on 03-30-2025 Monocytes/100 WBC (Bld) 7.0 % 0-[address] [facility] Neutrophil percentageOrdered By: Flavio Hudson on 03-30-2025 Neutrophils/100 WBC (Bld) 65.7 % 47-70 [facility] Nucleated red blood cell per centageOrdered By: Flavio Hudson on 03-30-2025 Nucleated RBC/100 WBC (Bld) [Ratio] 0 % 0-5 [facility] Platelet countOrdered By: Chris Hudson on 03-30-2025 Platelets (Bld) [#/Vol] 295 10*3/uL 150-450 [facility] Potassium measurement (mass/ volume)Ordered By: Flavio Hudson on 03-30-2025 Potassium (Unsp spec) [Mass/Vol] 4.2 mmol/L 3.3-5.1 [facility] RBC Auto (Bld) [#/Vol]Ordere d By: Flavio Hudson on 03-30-2025 RBC (Bld) [#/Vol] 5.02 10*6/uL 4.2-5.4 [facility] Serum creatinine measurement (mass/volume)Ordered By: Flavio Hudson on 03-30-2025 Creatinine [Mass/Vol] 0.93 mg/dL 0.70-1.20 [facility] Serum globulin measurementOr dered By: Flavio Hudson on 03-30-2025 Globulin (S) [Mass/Vol] 3.0 g/dL 2.2-4.2 [facility] Serum glucose measurement (m ass/volume)Ordered By: Flavio Hudson on 03-30-2025 Glucose [Mass/Vol] 110 mg/dL High 70-99 [facility] Serum or plasma alanine garcia otransferase (ALT) measurementOrdered By: Flavio Hudson on 03-30-2025 ALT [Catalytic activity/Vol] 28 U/L <35 [facility] Serum or plasma albumin nelson urement (mass/volume)Ordered By: Flavio Hudson on 03-30-2025 Albumin [Mass/Vol] 4.3 g/dL 3.5-5.0 [facility] Serum or plasma albumin/glob ulin mass ratioOrdered By: Flavio Hudson on 03-30-2025 Albumin/Globulin [Mass ratio] 1.4 {ratio} 0.9-2.4 [facility] Serum or plasma alkaline rhonda sphatase measurementOrdered By: Flavio Hudson on 03-30-2025 ALP [Catalytic activity/Vol] 64 U/L 35-104 [facility] Serum or plasma calcium nelson urement (mass/volume)Ordered By: Flavio Hudson on 03-30-2025 Calcium [Mass/Vol] 10.4 mg/dL 7.6-11.0 [facility] Serum or plasma urea nitroge n measurement (mass/volume)Ordered By: Flavio Hudson on 03-30-2025 Urea nitrogen [Mass/Vol] 14 mg/dL 4-19 [facility] Sodium levelOrdered By: Flavio Hudson on 03-30-2025 Sodium [Moles/Vol] 139 mmol/L 133-145 [facility] Total proteinOrdered By: Nimo Hudson on 03-30-2025 Protein [Mass/Vol] 7.3 g/dL 5.9-8.4 [facility] White blood cell (WBC) count Ordered By: Flavio Hudson on 03-30-2025 WBC (Bld) [#/Vol] 6.5 10*3/uL 4.4-11.0 [facility] BACTERIAL VAGINOSIS NAATon 0 11-04-2024 Lactobacillus crispatus+gasseri+allen ii + Gardnerella vaginalis + Atopobium vaginae rRNA JAZMINE+probe Ql (Vag fld) Not detected Normal Not detected [facility] Comment on above: Order Comment: Speci men Type: SWAB Ordering Facility: [facility] Address: [address] [place], [place] [id number] Performed By: #### B VAMP, CVTV #### [facility] CLIA [id number] [address] [place] [address] [place] NO/TRICHOMONAS NAATon 0 11-04-2024 C. glabrata RNA JAZMINE+probe Ql (Vag fld) Not detected Normal Not detected [facility] Comment on above: Order Comment: Speci men Type: SWAB Ordering Facility: [facility] Address: [address] [place] [address] Performed By: #### Maco VAMP, CVTV #### [facility] CLIA [id number] [address] [place] [address] [place] No sp DNA JAZMINE+probe Ql (Vag fld) Not detected Normal Not detected [facility] Comment on above: Order Comment: Speci men Type: SWAB Ordering Facility: [facility] Address: [address] [place] [address] Result Comment: The No species group target includes C. albicans, C. tropicalis, C. parapsilosis, and C. dubliniensis. Performed By: #### Maco VAMP, CVTV #### [facility] CLIA [id number] [address] [place] [address] [place] T. vaginalis DNA JAZMINE+probe Ql (Unsp spec) Not detected Normal Not detected [facility] Comment on above: Order Comment: Speci men Type: SWAB Ordering Facility: [facility] Address: [address] [place] [address] Performed By: #### Maco VAMP, CVTV #### [facility] CLIA [id number] [address] [place] [address] [place] CNOVon 11-04-2024 CNOV Office Visit (OBGYWM ) -- JUDAH BETTENCOURT ([id number]) 1975 F Date Time Provider Department 11/04/24 8:20 AM LORA MARQUEZ During your visit today, we recorded the following information about you: Blood pressure Weight Last Period 126/76 97.5 kg 02/18/17 Lora Marquez MD 11/04/2024 8:47 AM Signed Judah Bettencourt is a 49 year old female who [...] OB History No obstetric history on file. 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 As applicable, any other physician, advance practice provider, medical student, or other health professional student that will be observing or involved in the sensitive examination for educational or training purposes was discussed with the Patient or Authorized Facilities Engineer. The Patient or Authorized Facilities Engineer has agreed to proceed with the sensitive examination. (Sensitive examination includes inspection and/or palpation of the breasts, pelvis, prostate and anorectal regions). EXAM: LMP 02/18/2017 GENERAL: pleasant, female in no apparent distress PELVIC: external genitalia normal, normal Bartholin's glands, urethra, Crosby's glands, no vulvar lesions, no cervical lesions, [...] itching [N89.8] Order(s):NO/TRICHOMON NAAT [SQCVTV] Order #: [id number] BACTERIAL VAGINOSIS NAAT [SQBVAMP] Order #: [id number] Prescriptions as of 11/04/2024 - indapamide (LOZOL) 1.25 mg tablet Take 1.25 mg by mouth once daily. - ramipril (ALTACE) 5 mg capsule Take 1 capsule by mouth every afternoon. - VALTREX 500 mg tablet Take 500 mg by mouth as needed (more content not included)... Normal [facility] 24 hour urine 5-hydroxyindol eacetate measurement (mass/volume)Ordered By: Flavio Hudson on 09-11-2023 5-Hydroxyindoleacetate (24H U) [Mass/Vol] 2.0 mg/L Undefined [facility] Comment on above: This test was develo ped and its performance characteristicsdetermined by [facility]. It has not been cleared orapproved by the Food and Drug Administration. 24 hour urine 5-hydroxyindol eacetic acid (5-HIAA) measurement (mass/time)Ordered By: Flavio Hudson on 09-11-2023 5-Hydroxyindoleacetate (24H U) [Mass/Time] 3.6 mg/24 hr 0.0-14.9 [facility] 24 hour urine free cortisol measurement (mass/time)Ordered By: Flavio Hudson on 09-11-2023 Cortisol Free (24H U) [Mass/Time] 11 ug/24 hr 6-42 [facility] Comment on above: Performed at: [address] [id number] Director: Wilner Joya MD, Phone: [phone] 24 hour urine normetanephrin e measurement (mass/time)Ordered By: Flavio Hudson on 09-11-2023 Normetanephrine (24H U) [Mass/Time] 227 ug/24 hr 131-612 [facility] No Panel InformationOrdered By: Flavio Hudson on 09-11-2023 Urine Metanephrines 24 Hour 65 ug/24 hr 36-209 [facility] Urine Normetanephrine 126 ug/L Undefined [facility] Quantitative urine free catalina isol measurement (mass/volume)Ordered By: Flavio Hudson on 09-11-2023 Cortisol Free (U) [Mass/Vol] 6 ug/L Undefined [facility] Urine metanephrine measureme nt (mass/volume)Ordered By: Flavio Hudson on 09-11-2023 Metanephrine (U) [Mass/Vol] 36 ug/L [facility] 24 hour urine 5-hydroxyindol eacetate measurement (mass/volume)Ordered [...] (24H U) [Mass/Time] 1.56 g/24 HR 0.70-1.90 [facility] 24 hour urine free cortisol measurement [...] Auto (Unsp spec) [#/Vol] 1.59 10*3/uL 0.83-4.51 [facility] Basophil percentageOrdered B y: Flavio Hudson on 08-31-2023 Basophils/100 WBC (Bld) 0.8 % 0-[address] [facility] Bilirubin [Mass/Vol] 0.60 mg/dL 0.20-1.[address] [facility] Comment on above: For patients on eltr ombopag therapy, use of [place] TBIL is not recommended. Chloride [Moles/Vol] 107 mmol/L 98-[address] [facility] Eosinophils/100 WBC (Bld) 1.9 % 0-5 [facility] Glucose [Mass/Vol] 94 mg/dL 74-106 [facility] Neutrophils (Bld) [#/Vol] 5.0 10*3/uL 2.0-7.7 [facility] Neutrophils/100 WBC (Bld) 65.1 % 47-70 [facility] Potassium [Moles/Vol] 4.0 mmol/L 3.5-5.1 [facility] Protein [Mass/Vol] 7.1 g/dL 6.4-8.2 [facility] Sodium [Moles/Vol] 138 mmol/L 136-145 [facility] WBC (Bld) [#/Vol] 7.7 10*3/uL 4.4-11.0 [facility] Blood erythrocytes count (nu mber/volume)Ordered By: Flavio Hudson on 08-31-2023 RBC (Bld) [#/Vol] 4.86 10*6/uL 4.2-5.4 [facility] Blood hemoglobin measurement (mass/volume)Ordered By: Flavio Hudson on 08-31-2023 Hemoglobin (Bld) [Mass/Vol] 13.8 g/dL 12.0-15.0 [facility] Blood lymphocytes/100 leukoc ytesOrdered By: Flavio Hudson on 08-31-2023 Lymphocytes/100 WBC (Bld) 20.5 % 19-41 [facility] Blood monocytes/100 leukocyt esOrdered By: Flavio Hudson on 08-31-2023 Monocytes/100 WBC (Bld) 11.1 % 0-[address] [facility] Blood platelet mean volumeOr dered By: Flavio Hudson on 08-31-2023 Platelet mean volume (Bld) [Entitic vol] 9.8 fL 6.2-12.0 [facility] Determination of erythrocyte mean corpuscular volume (MCV)Ordered By: Flavio Hudson on 08-31-2023 MCV (RBC) [Entitic vol] 88.7 fL 81-[address] [facility] Hematocrit Auto (Bld) [Volum e fraction]Ordered By: Flavio Hudson on 08-31-2023 Hematocrit (Bld) [Volume fraction] 43.1 % 37-47 [facility] - Chemistry and C hemistry - challengeOrdered By: Flavio Hudson on 08-31-2023 ALP [Catalytic activity/Vol] 73 U/L 45-117 [facility] ALT [Catalytic activity/Vol] 26 U/L 13-56 [facility] CO2 [Moles/Vol] 28.0 mmol/L 21.0-32.0 [facility] Globulin (S) [Mass/Vol] 3.6 g/dL 2.2-4.[address] [facility] Urea nitrogen/Creatinine [Mass ratio] 12.9 mg/mg 10-20 [facility] - Hematology and Cell countsOrdered By: Flavio Hudson on 08-31-2023 Erythrocyte distribution width (RBC) [Entitic vol] 43.6 fL 35.1-43.9 [facility] Erythrocyte distribution width (RBC) [Ratio] 13.4 % 11.6-14.6 [facility] Immature granulocytes/100 WBC (Bld) 0.600 % 0.0-0.9 [facility] Comment on above: IG% - Immature Granu locytes (promyelocytes, myelocytes and metamyelocytes) > 1% indicates that a LEFT SHIFT is Present. MCH (RBC) [Entitic mass] 28.4 pg 27.0-32.0 [facility] Nucleated RBC/100 WBC (Bld) [Ratio] 0 % 0-5 [facility] - Specimen inform ationOrdered By: Flavio Hudson on 08-31-2023 Collection duration (U) 24.0 HOURS 24.0-24.[address] [facility] MCHC Auto (RBC) [Mass/Vol]Or dered By: Flavio Hudson on 08-31-2023 MCHC (RBC) [Mass/Vol] 32.0 g/dL 32-36 [facility] No Panel InformationOrdered By: Flavio Hudson on 08-31-2023 Dehydroepiandrosterone Sulfate See comment [facility] Comment on above: TEST RESULTS LIMITSD HEA-Sulfate 99.2 ug/dL 41.2-243.7 TESTING PERFORMED AT [facility]. ORIGINAL REPORT ON FILE IN LAB CONTAINS ADDITIONAL TEST SITE INFORMATION. Estimated GFR (MDRD) Amer 83 mL/min >60 [facility] Comment on above: GFR Calc Estimated GFR (MDRD) Non-Af Amer 69 mL/min >60 [facility] Comment on above: Non- GFR Calc Urine Metanephrines 24 Hour TNP [facility] Comment on above: Test not performed Urine Normetanephrine TNP [facility] Comment on above: Test not performed Plasma renin measurement (en zymatic activity/volume)Ordered By: Flavio Hudson on 08-31-2023 Renin (P) [Catalytic activity/Vol] See comment [facility] Comment on above: TEST RESULTS LIMITSR enin Activity, Plasma A, 1.655 ng/mL/hr 0.167-5.380 CommentsA: This test was developed and its performance characteristics determined by [facility]. It has not been cleared or approved by the Food and DrugAdministration. TESTING PERFORMED AT [facility]. ORIGINAL REPORT ON FILE IN LAB CONTAINS ADDITIONAL TEST SITE INFORMATION. Platelets bldOrdered By: Nimo Hudson on 08-31-2023 Platelets (Bld) [#/Vol] 235 10*3/uL 150-450 [facility] Quantitative urine free catalina isol measurement (mass/volume)Ordered By: Flavio Hudson on 08-31-2023 Cortisol Free (U) [Mass/Vol] TNP [facility] Comment on above: Test not performed Serum or plasma albumin nelson urement (mass/volume)Ordered By: Flavio Hudson on 08-31-2023 Albumin [Mass/Vol] 3.5 g/dL 3.2-5.0 [facility] Serum or plasma albumin/glob ulin mass ratioOrdered By: Flavio Hudson on 08-31-2023 Albumin/Globulin [Mass ratio] 1.0 {ratio} 0.9-2.4 [facility] Serum or plasma calcium nelson urement (mass/volume)Ordered By: Flavio Hudson on 08-31-2023 Calcium [Mass/Vol] 9.4 mg/dL 8.5-10.1 [facility] Serum or plasma creatinine m easurement (mass/volume)Ordered By: Flavio Hudson on 08-31-2023 Creatinine [Mass/Vol] 0.93 mg/dL 0.55-1.02 [facility] Comment on above: The validity of the calculated GFR & GFRAA in patients over 70 years has not been determined. Clinical correlation is essential. Serum or plasma urea nitroge n measurement (mass/volume)Ordered By: Flavio Hudson on 08-31-2023 Urea nitrogen [Mass/Vol] 12 mg/dL 7-18 [facility] Thin prep Papanicolaou smear with manual screeningOrdered By: Flavio Hudson on 08-31-2023 Thin prep Papanicolaou smear with manual screening 16 U/L 15-37 [facility] Thin prep Papanicolaou smear with manual screening 3 5-15 [facility] Thin prep Papanicolaou smear with manual screening See comment [facility] Comment on above: TEST RESULTS LIMITSA ldosterone A, 6.6 ng/dL 0.0-30.0CommentsA: This test was developed and its performance characteristics determined by [employer]. It has not been cleared or approved by the Food and DrugAdministration. TESTING PERFORMED AT [facility]. ORIGINAL REPORT ON FILE IN LAB CONTAINS ADDITIONAL TEST SITE INFORMATION. Urine creatinine measurement (mass/volume)Ordered By: Flavio Hudson on 08-31-2023 Creatinine (U) [Mass/Vol] 125.00 mg/dL NO RANGE EST. [facility] Urine metanephrine measureme nt (mass/volume)Ordered By: Flavio Hudson on 08-31-2023 Metanephrine (U) [Mass/Vol] TNP [facility] Comment on above: Test not performed Urine volume measurementOrde red By: Flavio Hudson on 08-31-2023 Specimen volume (U) 1.20 L [facility] Basophil percentageOrdered B y: Flavio Hudson on 06-03-2023 Bilirubin [Mass/Vol] 0.60 mg/dL 0.20-1.[address] [facility] Comment on above: For patients on eltr ombopag therapy, use of Dim[place] TBIL is not recommended. Chloride [Moles/Vol] 104 mmol/L 98-[address] [facility] Cholesterol [Mass/Vol] 208 mg/dL <200 [facility] Comment on above: <200 mg/dL Desirable 200-240 mg/dL Borderline >240 mg/dL High Risk Glucose [Mass/Vol] 83 mg/dL 74-106 [facility] Potassium [Moles/Vol] 4.0 mmol/L 3.5-5.1 [facility] Protein [Mass/Vol] 7.3 g/dL 6.4-8.2 [facility] Sodium [Moles/Vol] 138 mmol/L 136-145 [facility] Triglyceride [Mass/Vol] 134 mg/dL <[address] [facility] Comment on above: The drugs N-Acetylcy steine and Metamizole may falsely depress this assay.Serum Triglycerides Reference Interval Normal <150 mg/dL Borderline high 150 - 199 mg/dL High 200 - 499 mg/dL Very High > or = 500 mg/dL Laboratory - Chemistry and C hemistry - challengeOrdered By: Flavio Hudson on 06-03-2023 ALP [Catalytic activity/Vol] 68 U/L 45-117 [facility] ALT [Catalytic activity/Vol] 32 U/L 13-56 [facility] CO2 [Moles/Vol] 28.0 mmol/L 21.0-32.0 [facility] Globulin (S) [Mass/Vol] 3.7 g/dL 2.2-4.[address] [facility] Urea nitrogen/Creatinine [Mass ratio] 13.5 mg/mg 10-20 [facility] No Panel InformationOrdered By: Flavio Hudson on 06-03-2023 Estimated GFR (MDRD) Amer 73 mL/min >60 [facility] Comment on above: GFR Calc Estimated GFR (MDRD) Non-Af Amer 61 mL/min >60 [facility] Comment on above: Non- GFR Calc Thyroid Stimulating Hormone (TSH) 2.34 uIU/mL 0.358-3.74 [facility] Urine Microalbumin/Creatinine Ratio TNP [facility] Comment on above: Test not performed Serum or plasma albumin nelson urement (mass/volume)Ordered By: Flavio Hudson on 06-03-2023 Albumin [Mass/Vol] 3.6 g/dL 3.2-5.0 [facility] Serum or plasma albumin/glob ulin mass ratioOrdered By: Flavio Hudson on 06-03-2023 Albumin/Globulin [Mass ratio] 1.0 {ratio} 0.9-2.4 [facility] Serum or plasma calcium nelson urement (mass/volume)Ordered By: Flavio Hudson on 06-03-2023 Calcium [Mass/Vol] 9.3 mg/dL 8.5-10.1 [facility] Serum or plasma cholesterol in HDL measurement (mass/volume)Ordered By: Flavio Hudson on 06-03-2023 Cholesterol in HDL [Mass/Vol] 48 mg/dL >40 [facility] Comment on above: The drugs N-Acetylcy steine and Metamizole may falsely depress this assay. Reference Range HDL <40 mg/dL Low HDL Cholesterol HDL >or= 60 mg/dL High HDL Cholesterol Serum or plasma cholesterol in VLDL measurement (mass/volume)Ordered By: Flavio Hudson on 06-03-2023 Cholesterol in VLDL [Mass/Vol] 27 mg/dL 5-40 [facility] Serum or plasma creatinine m easurement (mass/volume)Ordered By: Flavio Hudson on 06-03-2023 Creatinine [Mass/Vol] 1.04 mg/dL 0.55-1.02 [facility] Comment on above: The validity of the calculated GFR & GFRAA in patients over 70 years has not been determined. Clinical correlation is essential. Serum or plasma low density lipoprotein (LDL) cholesterol measurement (mass/volume)Ordered By: Flavio Hudson on 06-03-2023 Cholesterol in LDL [Mass/Vol] 133 mg/dL 0-130 [facility] Serum or plasma urea nitroge n measurement (mass/volume)Ordered By: Flavio Hudson on 06-03-2023 Urea nitrogen [Mass/Vol] 14 mg/dL 7-18 [facility] Thin prep Papanicolaou smear with manual screeningOrdered By: Flavio Hudson on 06-03-2023 Thin prep Papanicolaou smear with manual screening 15 U/L 15-37 [facility] Thin prep Papanicolaou smear with manual screening 6 5-15 [facility] Thin prep Papanicolaou smear with manual screening < 5.0 mg/L NO RANGE EST. [facility] Urine creatinine measurement (mass/volume)Ordered By: Flavio Hudson on 06-03-2023 Creatinine (U) [Mass/Vol] 89.30 mg/dL NO RANGE EST. [facility] Serum or plasma calcium nelson urement (mass/volume)Ordered By: Dr. Barrios on 03-25-2023 Calcium [Mass/Vol] 10.1 mg/dL 8.5-10.1 [facility] Basophil percentageOrdered B y: Dr. Hudson on 01-08-2023 Basophil percentage 10-25 SEEN /hpf 0-5 [facility] Bilirubin [Mass/Vol] 0.60 mg/dL 0.20-1.[address] [facility] Comment on above: For patients on eltr ombopag therapy, use of Dimension [place] TBIL is not recommended. Chloride [Moles/Vol] 105 mmol/L 98-[address] [facility] Glucose [Mass/Vol] 103 mg/dL 74-106 [facility] Comment on above: Fasting Glucose resu lt from 100 to 125 mg/dL suggests IMPAIRED HOMEOSTASIS per A.D.A. criteria. Potassium [Moles/Vol] 4.1 mmol/L 3.5-5.1 [facility] Protein [Mass/Vol] 7.5 g/dL 6.4-8.2 [facility] Sodium [Moles/Vol] 139 mmol/L 136-145 [facility] Bilirubin Test strip Ql (U)O rdered By: Dr. Hudson on 01-08-2023 Bilirubin Ql (U) Negative Negative [facility] Ketones Test strip Ql (U)Ord ered By: Dr. Hudson on 01-08-2023 Ketones Ql (U) 5 mg/dl Negative [facility] Laboratory - Chemistry and C hemistry - challengeOrdered By: Dr. Hudson on 01-08-2023 ALP [Catalytic activity/Vol] 67 U/L 45-117 [facility] ALT [Catalytic activity/Vol] 29 U/L 13-56 [facility] CO2 [Moles/Vol] 28.0 mmol/L 21.0-32.0 [facility] Globulin (S) [Mass/Vol] 3.7 g/dL 2.2-4.[address] [facility] Urea nitrogen/Creatinine [Mass ratio] 18.4 mg/mg 10-20 [facility] Mucus LM Ql (Urine sed)Order ed By: Dr. Hudson on 01-08-2023 Mucus Ql (Urine sed) 2+ /hpf [facility] Nitrite Test strip Ql (U)Ord ered By: Dr. Hudson on 01-08-2023 Nitrite Ql (U) Negative Negative [facility] No Panel InformationOrdered By: Dr. Hudson on 01-08-2023 Estimated GFR (MDRD) Amer 74 mL/min >60 [facility] Comment on above: GFR Calc Estimated GFR (MDRD) Non-Af Amer 61 mL/min >60 [facility] Comment on above: Non- GFR Calc Protein Test strip Ql (U)Ord ered By: Dr. Hudson on 01-08-2023 Protein Ql (U) 15 mg/dl Negative [facility] Serum or plasma albumin nelson urement (mass/volume)Ordered By: Dr. Hudson on 01-08-2023 Albumin [Mass/Vol] 3.8 g/dL 3.2-5.0 [facility] Serum or plasma albumin/glob ulin mass ratioOrdered By: Dr. Hudson on 01-08-2023 Albumin/Globulin [Mass ratio] 1.0 {ratio} 0.9-2.4 [facility] Serum or plasma calcium nelson urement (mass/volume)Ordered By: Dr. Hudson on 01-08-2023 Calcium [Mass/Vol] 9.7 mg/dL 8.5-10.1 [facility] Serum or plasma creatinine m easurement (mass/volume)Ordered By: Dr. Hudson on 01-08-2023 Creatinine [Mass/Vol] 1.03 mg/dL 0.55-1.02 [facility] Comment on above: The validity of the calculated GFR & GFRAA in patients over 70 years has not been determined. Clinical correlation is essential. Serum or plasma urea nitroge n measurement (mass/volume)Ordered By: Dr. Hudson on 01-08-2023 Urea nitrogen [Mass/Vol] 19 mg/dL 7-18 [facility] Squamous epithelial cells de tection in urine sediment by light microscopyOrdered By: Dr. Hudson on 01-08-2023 Epithelial cells.squamous LM Ql (Urine sed) 5-10 SEEN /hpf 5-10 [facility] Thin prep Papanicolaou smear with manual screeningOrdered By: Dr. Hudson on 01-08-2023 Thin prep Papanicolaou smear with manual screening 15 U/L 15-37 [facility] Thin prep Papanicolaou smear with manual screening 6 5-15 [facility] Urine blood detectionOrdered By: Dr. Hudson on 01-08-2023 RBC Ql (U) 250 /ul Negative [facility] RBC Ql (U) 10-25 SEEN /hpf 0-5 [facility] Urine clarityOrdered By: Dr. Hudson on 01-08-2023 Clarity (U) Clear Clear [facility] Urine color determinationOrd ered By: Dr. Hudson on 01-08-2023 Color (U) Yellow Yellow [facility] Urine glucose detectionOrder ed By: Dr. Hudosn on 01-08-2023 Glucose Ql (U) Normal mg/dl Normal [facility] Urine leukocyte esterase det ection by dipstickOrdered By: Dr. Hudson on 01-08-2023 Leukocyte esterase Test strip Ql (U) 25 /ul Negative [facility] Urine pHOrdered By: Dr. Johny cardenas on 01-08-2023 pH (U) 5.0 [pH] 5.0 - 8.0 [facility] Urine sediment bacteria coun t by microscopy (number/high power field)Ordered By: Dr. Hudson on 01-08-2023 Bacteria LM.HPF (Urine sed) [#/Area] 1 /[HPF] None Seen [facility] Urine specific gravity measu rementOrdered By: Dr. Hudson on 01-08-2023 Specific gravity (U) [Rel density] 1.025 1.002-1.03 0 [facility] Urobilinogen Auto test strip Ql (U)Ordered By: Dr. Hudson on 01-08-2023 Urobilinogen Ql (U) Normal mg/dl Normal [facility] UA DIP, URINE (POC)on 2022 BILIRUBIN UA (POCT) Negative Negative [facility] CLARITY UA (POCT) Slightly Cloudy [facility] COLOR UA (POCT) Yellow [facility] GLUCOSE UA (POCT) Negative Negative mg/dL [facility] HEMOGLOBIN/BLOOD UA (POCT) Large Abnormal Negative [facility] KETONE UA (POCT) Negative Negative mg/dL [facility] LEUKOCYTES UA (POCT) Negative Negative [facility] NITRITE UA (POCT) Negative Negative [facility] PH UA (POCT) 5.5 4.5 - 8.0 [facility] Protein Ql (U) Negative Negative mg/dL [facility] SPECIFIC GRAVITY UA (POCT) 1.015 1.005 - 1.030 [facility] UROBILINOGEN UA (POCT) 0.2 E.U./dL Desire l E.U./dL [facility] Basophil percentageon 2021 Bilirubin [Mass/Vol] 0.50 mg/dL 0.20-1.[address] [facility] Work Phone: Comment on above: For patients on eltr ombopag therapy, use of Dimension [place] TBIL is not recommended. Chloride [Moles/Vol] 104 mmol/L 98-[address] [facility] Work Phone: Cholesterol [Mass/Vol] 237 mg/dL <200 [facility] Work Phone: Comment on above: <200 mg/dL Desirable 200-240 mg/dL Borderline >240 mg/dL High Risk Glucose [Mass/Vol] 80 mg/dL 74-106 [facility] Work Phone: [phone] Potassium [Moles/Vol] 4.1 mmol/L 3.5-5.1 [facility] Work Phone: [phone] Protein [Mass/Vol] 7.5 g/dL 6.4-8.2 [facility] Work Phone: Sodium [Moles/Vol] 138 mmol/L 136-145 [facility] Work Phone: [phone] Triglyceride [Mass/Vol] 181 mg/dL <[address] [facility] Work Phone: [phone] Comment on above: The drugs N-Acetylcy steine and Metamizole may falsely depress this assay.Serum Triglycerides Reference Interval Normal <150 mg/dL Borderline high 150 - 199 mg/dL High 200 - 499 mg/dL Very High > or = 500 mg/dL Laboratory - Chemistry and C hemistry - challengeon 09-10-2022 ALP [Catalytic activity/Vol] 68 U/L 45-117 [facility] Work Phone: [phone] ALT [Catalytic activity/Vol] 36 U/L 13-56 [facility] Work Phone: [phone] CO2 [Moles/Vol] 26.0 mmol/L 21.0-32.0 [facility] Work Phone: [phone] Globulin (S) [Mass/Vol] 3.7 g/dL 2.2-4.[address] [facility] Work Phone: [phone] Urea nitrogen/Creatinine [Mass ratio] 19.0 mg/mg 10-20 [facility] Work Phone: No Panel Informationon 09-10 C-Reactive Protein High Sensitivity 5.02 mg/L <3.00 [facility] Work Phone: [phone] Comment on above: Low Relative Risk of CVD <1.0 mg/L Average Relative Risk of CVD 1.0 - 3.0 mg/L High Relative Risk of CVD >3.0 mg/L Estimated GFR (MDRD) Amer 94 mL/min >60 [facility] Work Phone: Comment on above: GFR Calc Estimated GFR (MDRD) Non-Af Amer 78 mL/min >60 [facility] Work Phone: Comment on above: Non- GFR Calc Serum or plasma albumin nelson urement (mass/volume)on 09-10-2022 Albumin [Mass/Vol] 3.8 g/dL 3.2-5.0 [facility] Work Phone: Serum or plasma albumin/glob ulin mass ratioon 09-10-2022 Albumin/Globulin [Mass ratio] 1.0 {ratio} 0.9-2.4 [facility] Work Phone: Serum or plasma calcium nelson urement (mass/volume)on 09-10-2022 Calcium [Mass/Vol] 9.3 mg/dL 8.5-10.1 [facility] Work Phone: Serum or plasma cholesterol in HDL measurement (mass/volume)on 09-10-2022 Cholesterol in HDL [Mass/Vol] 52 mg/dL >40 [facility] Work Phone: Comment on above: The drugs N-Acetylcy steine and Metamizole may falsely depress this assay. Reference Range HDL <40 mg/dL Low HDL Cholesterol HDL >or= 60 mg/dL High HDL Cholesterol Serum or plasma cholesterol in VLDL measurement (mass/volume)on 09-10-2022 Cholesterol in VLDL [Mass/Vol] 36 mg/dL 5-40 [facility] Work Phone: Serum or plasma creatinine m easurement (mass/volume)on 09-10-2022 Creatinine [Mass/Vol] 0.84 mg/dL 0.55-1.02 [facility] Work Phone: Comment on above: The validity of the calculated GFR & GFRAA in patients over 70 years has not been determined. Clinical correlation is essential. Serum or plasma low density lipoprotein (LDL) cholesterol measurement (mass/volume)on 09-10-2022 Cholesterol in LDL [Mass/Vol] 149 mg/dL 0-130 [facility] Work Phone: Serum or plasma urea nitroge n measurement (mass/volume)on 09-10-2022 Urea nitrogen [Mass/Vol] 16 mg/dL 7-18 [facility] Work Phone: Thin prep Papanicolaou smear with manual screeningon 09-10-2022 Thin prep Papanicolaou smear with manual screening 18 U/L 15-37 [facility] Work Phone: Thin prep Papanicolaou smear with manual screening 8 5-15 [facility] Work Phone: Basophil percentageon 2021 Chloride [Moles/Vol] 107 mmol/L 98-107 [facility]: Cholesterol [Mass/Vol] 253 mg/dL <200 [facility] Work Phone: Comment on above: <200 mg/dL Desirable 200-240 mg/dL Borderline >240 mg/dL High Risk Glucose [Mass/Vol] 93 mg/dL 74-106 [facility] Work Phone: Potassium [Moles/Vol] 4.5 mmol/L 3.5-5.1 [facility]: Sodium [Moles/Vol] 138 mmol/L 136-145 [facility] Work Phone: Triglyceride [Mass/Vol] 162 mg/dL <[address] [facility] Work Phone: Comment on above: The drugs N-Acetylcy steine and Metamizole may falsely depress this assay.Serum Triglycerides Reference Interval Normal <150 mg/dL Borderline high 150 - 199 mg/dL High 200 - 499 mg/dL Very High > or = 500 mg/dL Laboratory - Chemistry and C hemistry - challengeon 02-19-2022 CO2 [Moles/Vol] 25.0 mmol/L 21.0-32.0 [facility] Work Phone: Urea nitrogen/Creatinine [Mass ratio] 16.9 mg/mg 10-20 [facility] Work Phone: No Panel Informationon 02-19 Estimated GFR (MDRD) Amer 82 mL/min >60 [facility] Work Phone: Comment on above: GFR Calc Estimated GFR (MDRD) Non-Af Amer 68 mL/min >60 [facility] Work Phone: Comment on above: Non- GFR Calc Urine Microalbumin/Creatinine Ratio 10.3 mg/g CRE <30 [facility] Work Phone: Serum or plasma calcium nelson urement (mass/volume)on 02-19-2022 Calcium [Mass/Vol] 9.5 mg/dL 8.5-10.1 [facility] Work Phone: Serum or plasma cholesterol in HDL measurement (mass/volume)on 02-19-2022 Cholesterol in HDL [Mass/Vol] 49 mg/dL >40 [facility] Work Phone: Comment on above: The drugs N-Acetylcy steine and Metamizole may falsely depress this assay. Reference Range HDL <40 mg/dL Low HDL Cholesterol HDL >or= 60 mg/dL High HDL Cholesterol Serum or plasma cholesterol in VLDL measurement (mass/volume)on 02-19-2022 Cholesterol in VLDL [Mass/Vol] 32 mg/dL 5-40 [facility] Work Phone: Serum or plasma creatinine m easurement (mass/volume)on 02-19-2022 Creatinine [Mass/Vol] 0.95 mg/dL 0.55-1.02 [facility] Work Phone: Comment on above: The validity of the calculated GFR & GFRAA in patients over 70 years has not been determined. Clinical correlation is essential. Serum or plasma low density lipoprotein (LDL) cholesterol measurement (mass/volume)on 02-19-2022 Cholesterol in LDL [Mass/Vol] 172 mg/dL 0-130 [facility] Work Phone: Serum or plasma urea nitroge n measurement (mass/volume)on 02-19-2022 Urea nitrogen [Mass/Vol] 16 mg/dL 7-18 [facility] Work Phone: Thin prep Papanicolaou smear with manual screeningon 05-02-2022 Thin prep Papanicolaou smear with manual screening 6 5-15 [facility] Work Phone: Thin prep Papanicolaou smear with manual screening 22.1 mg/L NO RANGE EST. [facility] Work Phone: Urine creatinine measurement (mass/volume)on 02-19-2022 Creatinine (U) [Mass/Vol] 215.00 mg/dL NO RANGE EST. [facility] Work Phone: Vital Signs Date Time Vital Sign Value Performing Clinician Facility 05-19-2025 09:32-0400 Body height 157.5 cm Lora Marquez MD Work Phone: [facility] 05-19-2025 09:32-0400 Body mass index (BMI) [Ratio] 39.87 kg/m2 Lora Marquez MD Work Phone: [facility] 05-19-2025 09:32-0400 Body weight 98.88 kg Lora Marqeuz MD Work Phone: [facility] 05-19-2025 09:32-0400 Diastolic blood pressure 84 mm[Hg] Lora Marquez MD Work Phone: [facility] 05-19-2025 09:32-0400 Systolic blood pressure 120 mm[Hg] Lora Marquez MD Work Phone: [facility] 11-04-2024 08:17-0500 Body weight 97.52 kg Lora Marquez MD Work Phone: [facility] 11-04-2024 08:17-0500 Diastolic blood pressure 76 mm[Hg] Lora Marquez MD Work Phone: [facility] 11-04-2024 08:17-0500 Systolic blood pressure 126 mm[Hg] Lora Marquez MD Work Phone: [facility] 02-20-2024 08:51-0400 Body height 157.[address] Flavio Hudson Work Phone: [facility] 02-20-2024 08:51-0400 Body mass index (BMI) [Ratio] 39.5 kg/m2 Dr. Flavio Hudson Work Phone: [facility] 02-20-2024 08:51-0400 Body weight 98.[address] Flavio Hudson Work Phone: [facility] 01-29-2023 09:15-0400 Body temperature 96.9 [degF] [facility] 01-29-2023 09:15-0400 Diastolic blood pressure 77 mm[Hg] [facility] 01-29-2023 09:15-0400 Heart rate 76 /min [facility] 01-29-2023 09:15-0400 Respiratory rate 16 /min [facility] 01-29-2023 09:15-0400 SaO2% (BldA) [Mass fraction] 97 % [facility] 01-29-2023 09:15-0400 Systolic blood pressure 124 mm[Hg] [facility] 01-29-2023 06:43-0400 Body height 157.48 cm [facility] 01-29-2023 06:43-0400 Body mass index (BMI) [Ratio] 38.7 kg/m2 [facility] 01-29-2023 06:43-0400 Body weight 96 kg [facility] 01-05-2023 10:16-0400 Body temperature 97.81 [degF] Daniel Justice [employer] Work Phone: [facility] 01-05-2023 10:16-0400 Body weight 97.25 kg Daniel Justice [employer]ATION INS[employer] Work Phone: [facility] 01-05-2023 10:16-0400 Diastolic blood pressure 66 mm[Hg] Daniel Pendmae [employer] INS[employer] Work Phone: [facility] 01-05-2023 10:16-0400 Heart rate 84 /min Daniel Justice [employer]ATION INSPECT[employer] Work Phone: [facility] 01-05-2023 10:16-0400 Respiratory rate 18 /min Daniel Pendlenaveen [employer]TERATION INSPECTOR[employer] Work Phone: [facility] 01-05-2023 10:16-0400 SaO2% (BldA) [Mass fraction] 97 % Daniel Justice [employer]ATION INSPECT[employer] Work Phone: [facility] 01-05-2023 10:16-0400 Systolic blood pressure 128 mm[Hg] Daniel Jacknaveen [employer]TERATION INS[employer] Work Phone: [facility] Encounters Encounter Date Encounter Type Care Provider Facility Start: 06-07-2025 End: 06-07-[address] Flavio Hudson MD -Outpatient Breast Imaging Work Phone: Start: 06-07-2025 End: 06-07-2025 ambulatory Flavio Hudson Facility:[facility] Start: 05-19-2025 End: 05-19-2025 Patient encounter procedure Lora Marquez MD Work Phone: OB/Gynecology Comment on above: Encounter for gyneco logical examination (general) (routine) without abnormal findings (Primary Dx) Start: 05-19-2025 End: 05-19-2025 Patient encounter status Lora Marquez MD Work Phone: [facility] Start: 05-19-2025 End: 05-19-2025 ambulatory LORA MARQUEZ Facility:[facility] Start: 05-19-2025 Encounter for gynecological examination (general) (routine) without abnormal findings LORA MARQUEZ [facility] Start: 04-20-2025 Non-patient / Non-visit Dr. Nirmala osuna MD -[facility] Work Phone: Start: 03-30-2025 End: 03-30-[address] Flavio Hudson MD Work Phone: [facility] Work Phone: Start: 03-30-2025 End: 03-30-[address] Flavio Hudson MD -[facility] Start: 03-30-2025 End: 03-30-2025 ambulatory Flavio Hudson Facility:[facility] Start: 11-04-2024 End: 11-04-2024 ambulatory LORA MARQUEZ Facility:[facility] Start: 11-04-2024 End: 11-04-2024 Patient encounter procedure Lora Marquez MD Work Phone: OB/Gynecology Comment on above: Itching in the vagin al area (Primary Dx); Vaginal itching Start: 02-20-2024 End: 02-20-[address] Flavio Hudson Work Phone: [facility] Work Phone: Start: 02-17-2024 End: 02-17-[address] Flavio Hudson Work Phone: [facility] Work Phone: Start: 02-17-2024 End: 02-17-[address] Flavio Hudson Work Phone: [facility] Work Phone: Start: 12-11-2023 End: 12-11-2023 ambulatory [facility] Work Phone: Start: 12-11-2023 End: 12-11-2023 Discharged Recurring [facility]-Physical Therapy Work Phone: Start: 09-11-2023 End: 09-11-2023 ambulatory [facility] Work Phone: Start: 09-11-2023 End: 09-11-2023 Patient encounter procedure [facility]-Laboratory, Specimen Work Phone: Start: 08-31-2023 End: 08-31-2023 Patient encounter procedure [facility]-Laboratory Work Phone: Start: 06-03-2023 End: 06-03-2023 Patient encounter procedure [facility]-Outpatient Breast Imaging Work Phone: Start: 05-06-2023 End: 05-06-2023 ambulatory [facility] Work Phone: Start: 05-06-2023 End: 05-06-2023 Discharged Recurring [facility]-Physical Therapy Work Phone: Start: 03-25-2023 End: 03-25-2023 ambulatory [facility] Work Phone: Start: 03-25-2023 End: 03-25-2023 [facility] Start: 03-25-2023 Registered Recurring [facility]-Physical Therapy Start: 02-18-2023 End: 02-18-2023 ambulatory [facility] Work Phone: Start: 02-18-2023 End: 02-18-2023 Patient encounter procedure [facility]-Radiology, [place] Start: 02-07-2023 End: 02-07-2023 Patient encounter procedure [facility]-Cat Scan, [facility] Start: 01-29-2023 End: 01-29-2023 Admission to same day surgery center [facility]-Surgical Day Care Start: 01-21-2023 End: 01-21-2023 ambulatory [facility] Work Phone: Start: 01-21-2023 End: 01-21-2023 Patient encounter procedure [facility] Start: 2023 End: 2023 [facility] [facility] Work Phone: Start: 2023 End: 2023 Patient encounter procedure [facility]-Cat Scan, [facility] Start: 01-08-2023 End: 01-08-2023 ambulatory [facility] Work Phone: Start: 01-08-2023 End: 01-08-2023 [facility] Start: 01-05-2023 End: 01-05-2023 Office outpatient visit 15 minutes Daniel Justice APRN.CNP Work Phone: [facility] Comment on above: Hematuria, unspecifi ed type (Primary Dx) Start: 09-10-2022 End: 09-10-2022 ambulatory [facility] Work Phone: Start: 09-10-2022 End: 09-10-2022 [facility] Start: 05-07-2022 End: 05-07-2022 Patient encounter procedure [facility] Start: 02-19-2022 End: 02-19-2022 Patient encounter procedure [facility] Procedures Date Procedure Procedure Detail Performing Clinician Start: 06-07-2025 Screening mammography Chen Hudson MD Work Phone: Start: 02-17-2024 MRI of cervical spine Chen [...] Treatment Date Care Activity Detail Author Start: 05-23-2026 End: 05-23-2026 Patient encounter procedure 05/23/2026 9:10 AM EDT Office Visit OB/Gynecology [address] [place], [place] [id number] Lora Marquez MD [address] [place], [place] [id number] ANNUAL OB/Gynecology Comment on above: ANNUAL Start: 06-21-2025 Influenza vaccination Influenza Vaccine (#1) [facility] Start: 06-21-2024 Covid-19 Vaccine ( season) Covid-19 Vaccine ( season) [facility] Start: 02-20-2024 Patient referral [facility] Work Phone: Start: 02-20-2024 X-ray of cervical spine Cerv Spine 4 or 5 Views [facility] Start: 02-20-2024 XR Cervical spine 4 or 5 Views [facility] Start: 08-31-2023 Catecholamines, fractionation measurement, urine [facility] Start: 01-29-2023 Anes lithotrp xtrcorp shock wave w/o water bath ANESTH KIDNEY STONE DESTRUCT [facility] Start: 01-29-2023 Lithotripsy xtrcorp shock wave FRAGMENTING OF KIDNEY STONE [facility] Start: 01-29-2023 Patient discharge [facility] Start: 10-21-2022 DEPRESSION ASSESSMENT DEPRESSION ASSESSMENT [facility] Start: 2022 COLOGUARD (FIT-DNA) COLOGUARD (FIT-DNA) [facility] Start: 2022 Colonoscopy COLONOSCOPY [facility] Start: 2022 COLORECTAL CANCER SCREENING COLORECTAL CANCER SCREENING [facility] Start: [address] COLONOGRAPHY [facility] Start: 2022 DIABETES SCREEN DIABETES SCREEN [facility] Start: 2022 Diabetes Screening Diabetes Screening [facility] Start: 2022 FECAL OCCULT BLOOD FECAL OCCULT BLOOD [facility] Start: 2022 Lipid panel Lipid Screening [facility] Start: 2022 LIPID SCREEN LIPID SCREEN [facility] Start: 2022 Screening for malignant neoplasm of colon [facility] Start: 2022 SIGMOIDOSCOPY SIGMOIDOSCOPY [facility] Start: 02-08-2021 COVID-19 VACCINE (2 - Moderna series) COVID-19 VACCINE (2 - Moderna series) [facility] Start: 2017 Mammography MAMMOGRAM [facility] Start: 2017 Screening for malignant neoplasm of breast Mammogram Screening [facility] Start: 2007 HPV TESTING HPV TESTING [facility] Start: 1998 PAP TESTING PAP TESTING [facility] Start: 1998 Screening for malignant neoplasm of cervix Cervical Cancer Screening [facility] Start: 01-16-1996 Hepatitis B Vaccine (1 of 3 - 19+ 3-dose series) Hepatitis B Vaccine (1 of 3 - 19+ 3-dose series) [facility] Start: 01-16-1996 Urine microalbumin profile [facility] Start: 1995 Anxiety Screening Anxiety Screening [facility] Start: 1995 Depression Screening Depression Screening [facility] Start: 1977 HEPATITIS B (1 of 3 - 3-dose series) HEPATITIS B (1 of 3 - 3-dose series) [facility] 24 hour urine metadr enaline output [facility] 5-Hydroxyindoleaceta te [Mass/volume] in 24 hour Urine [facility] 5-Hydroxyindoleaceti c acid measurement [facility] Aldosterone [Mass/vo lume] in Serum or Plasma [facility] Bacteria identified in Urine by Culture URINE CULTURE Microbiology Routine Hematuria, unspecified type Ordered: 01/05/2023 [facility] Work Phone: Comment on above: Ordered: 01/05/2023 BACTERIAL VAGINOSIS NAAT BACTERI AL VAGINOSIS NAAT Lab Routine Vaginal itching 11/04/2024 8:56 AM EST [facility] NO/TRICHOMONAS NAAT NO /TRICHOMONAS NAAT Lab Routine Vaginal itching 11/04/2024 8:56 AM EST [facility] Work Phone: Cortisol Free [Mass/ volume] in 24 hour Urine [facility] Cortisol Free [Mass/ volume] in Urine [facility] Dehydroepiandrostero ne sulfate (DHEA-S) [Mass/volume] in Serum or Plasma [facility] Metanephrine [Mass/v olume] in Urine [facility] Normetanephrine [Mas s/time] in 24 hour Urine [facility] Patient referral [facility] Work Phone: Renin [Enzymatic activity/volume] in Plasma [facility] Urine normetadrenaline level [facility] Immunizations Immunization Date Immunization Notes Care Provider [facility] 08-05-2024 influenza virus vacc ine, unspecified formulation Lora Marquez MD Work Phone: [facility] Payers Date Payer Category Payer Self-pay [id number] 2019 Private Health Insurance [employer] P[employer] [id number] 2019 Unknown MMO [employer] PPO [id number] 2019-Present [phone] [address] [place] [address] PPO [id number] 2016 Unknown [id number] Unknown [id number] Unknown [id number] Social History Date Type Detail Facility Start: 03-03-2018 End: 02-20-2024 Tobacco smoking status COIS Unknown if ever smoked [facility] Start: 1975 Sex Assigned At Female [facility] Start: 01-05-2023 End: 02-20-2024 Tobacco smoking status NHIS Never smoked tobacco [facility] Start: 01-05-2023 Tobacco use and exposure Smokeless tobacco non-user [facility] Start: 01-05-2023 End: 05-19-2025 Alcohol intake Current drinker of alcohol (finding) [facility] Start: 1975 Sex Assigned At Not on file [facility] Start: 11-04-2024 End: 05-19-2025 History of Social function [facility] Start: 11-04-2024 End: 05-19-2025 Tobacco use panel [facility] National Score (1-100), lower number is lower risk 65 [facility] NEGATED: Highlighted row [facility] Medical Equipment Procedure Code Equipment Code [...] Assessment Result Facility 01-29-2023 Cognitive function Voice/Name [facility] Work Phone: 01-29-2023 Cognitive function Patient Alice richard Person;Place;Time [facility] Work Phone: Clinical Notes 01-05-2023 to 05-19-2025 Lora Marquez MD - 05/19/2025 9:30 AM Lora Navarro MD - 11/04/2024 8:10 AM EST Note Date & Type Note Facility 05-19-2025 Note HNO ID: [id number] Author: LORA MARQUEZ MD Service: ? 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 Judah is a 50 year old who presents for an annual gynecologic exam without complaints. 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 History Comments: Sexual Activity: Yes; Male Contraception: Surgical PAST MEDICAL HISTORY Diagnosis Date Adjustment disorder with depressed mood Infertility, female 1996 Uterine fibroid 1997 Myomectomy 1999 Uterine polyp 2014 PAST SURGICAL HISTORY Procedure Laterality Date DELIVERY ONLY 2009 , low cervical DELIVERY ONLY 2005 DELIVERY ONLY 2016 ENTERORRHAPHY SINGLE PERFORATION 11/13/2005 MYOMECTOMY 1-4 MYOMAS W/250 GM/< ABDOMINAL APPR 10/21/1999 VAGINAL HYSTERECTOMY 2017 ovaries remain FAMILY HISTORY Problem Relation Age of Onset Alcohol/Drug Father Allergies Mother Breast Cancer Mother Allergies Sister Cancer Paternal Grandfather Diabetes Maternal Grandfather SOCIAL HISTORY Social History Tobacco Use Smoking status: Never Smokeless tobacco: Never Vaping Use Vaping status: Never Used Substance Use Topics Alcohol use: Yes Comment: socially Drug use: Never REVIEW OF SYSTEMS Abdomen: No abdominal pain, nausea, vomiting, diarrhea, or constipation. No bloating, early satiety, indigestion, or increased flatulence. Bladder: No dysuria, gross hematuria, urinary frequency, urinary urgency, or incontinence. Breast: No breast lumps, nipple d/c, overlying skin changes, redness or skin retraction. Allergies and current medication updated:Yes SENSITIVE EXAM: The sensitive examination was discussed with the Patient or Patient's Authorized Facilities Engineer. As applicable, any other physician, advance practice provider, medical student, or other health professional student that will be observing or involved in the sensitive examination for educational or training purposes was discussed with the Patient or Authorized Facilities Engineer. The Patient or Authorized Facilities Engineer has agreed to proceed with the sensitive examination. (Sensitive examination includes inspection and/or palpation of the breasts, pelvis, prostate and anorectal regions). EXAM: BP 120/84 Ht 5' 2 (1.58m) Wt 218 lb (98.9kg) LMP 02/18/2017 BMI 39.86 kg/(m2). GENERAL: pleasant, female in no apparent distress HEENT: Normocephalic, atraumatic, mucus membranes moist, and no lesions NECK: Supple, full range of motion, no adenopathy, and thyroid normal DERMATOLOGY: Normal, without lesions, non-icteric, and non-hirsute BREAST: soft, non-tender, symmetric, no dominant mass, normal nipple-areolar complex, no lymphadenopathy, and no nipple discharge CHEST: Normal inspiratory effort ABDOMEN: soft, non-tender, and no masses PELVIC: external genitalia normal, normal Bartholin's glands, urethra, Crosby's glands, no vulvar lesions, no cervical lesions, good vaginal support, physiologic discharge present, normal appearing perineal body and perianal region, well estrogenized BIMANUAL: no adnexal masses, non-tender, and uterus surgically absent RECTOVAGINAL: deferred. NEURO: alert and oriented x3,exam grossly non-focal EXTREMITIES: normal ASSESSMENT/PLAN: 1) Health maintenance: Pap/HPV up to date. 2) Contraception: hysterectomy. Contraceptive options reviewed and information provided. 3) STD screening: Declined STI check. 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 Judah is a 50 year old who presents for an annual gynecologic exam without complaints. 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 History Comments: Sexual Activity: Yes; Male Contraception: Surgical PAST MEDICAL HISTORY Diagnosis Date Adjustment disorder with depressed mood Infertility, female 1997 Uterine fibroid 1997 Myomectomy 1999 Uterine polyp 2015 PAST SURGICAL HISTORY Procedure Laterality Date DELIVERY ONLY 2009 , low cervical DELIVERY ONLY 2005 DELIVERY ONLY 2016 ENTERORRHAPHY SINGLE PERFORATION 11/13/2005 MYOMECTOMY 1-4 MYOMAS W/250 GM/< ABDOMINAL APPR 10/21/1999 VAGINAL HYSTERECTOMY 2017 ovaries remain FAMILY HISTORY Problem Relation Age of Onset Alcohol/Drug Father Allergies Mother Breast Cancer Mother Allergies Sister Cancer Paternal Grandfather Diabetes Maternal Grandfather SOCIAL HISTORY Social History Tobacco Use Smoking status: Never Smokeless tobacco: Never Vaping Use Vaping status: Never Used Substance Use Topics Alcohol use: Yes Comment: socially Drug use: Never REVIEW OF SYSTEMS Abdomen: No abdominal pain, nausea, vomiting, diarrhea, or constipation. No bloating, early satiety, indigestion, or increased flatulence. Bladder: No dysuria, gross hematuria, urinary frequency, urinary urgency, or incontinence. Breast: No breast lumps, nipple d/c, overlying skin changes, redness or skin retraction. Allergies and current medication updated:Yes SENSITIVE EXAM: The sensitive examination was discussed with the Patient or Patient's Authorized Facilities Engineer. As applicable, any other physician, advance practice provider, medical student, or other health professional student that will be observing or involved in the sensitive examination for educational or training purposes was discussed with the Patient or Authorized Facilities Engineer. The Patient or Authorized Facilities Engineer has agreed to proceed with the sensitive examination. (Sensitive examination includes inspection and/or palpation of the breasts, pelvis, prostate and anorectal regions). EXAM: BP 120/84 Ht 5' 2 (1.58m) Wt 218 lb (98.9kg) LMP 02/18/2017 BMI 39.86 kg/(m^2). GENERAL: pleasant, female in no apparent distress HEENT: Normocephalic, atraumatic, mucus membranes moist, and no lesions NECK: Supple, full range of motion, no adenopathy, and thyroid normal DERMATOLOGY: Normal, without lesions, non-icteric, and non-hirsute BREAST: soft, non-tender, symmetric, no dominant mass, normal nipple-areolar complex, no lymphadenopathy, and no nipple discharge CHEST: Normal inspiratory effort ABDOMEN: soft, non-tender, and no masses PELVIC: external genitalia normal, normal Bartholin's glands, urethra, Crosby's glands, no vulvar lesions, no cervical lesions, good vaginal support, physiologic discharge present, normal appearing perineal body and perianal region, well estrogenized BIMANUAL: no adnexal masses, non-tender, and uterus surgically absent RECTOVAGINAL: deferred. NEURO: alert and oriented x3,exam grossly non-focal EXTREMITIES: normal ASSESSMENT/PLAN: 1) Health maintenance: Pap/HPV up to date. 2) Contraception: hysterectomy. Contraceptive options reviewed and information provided. 3) STD screening: Declined STI check. 4) Follow up one year or sooner as needed Lora Marquez MD documented in this encounter [facility] 11-04-2024 Note HNO ID: [id number] Author: LORA MARQUEZ MD Service: ? Author Type: Physician Type: Progress Notes Filed: 11/04/2024 08:47 Note Text: Judah Bettencourt is a 49 year old female who [...] OB History No obstetric history on file. 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 As applicable, any other physician, advance practice provider, medical student, or other health professional student that will be observing or involved in the sensitive examination for educational or training purposes was discussed with the Patient or Authorized Facilities Engineer. The Patient or Authorized Facilities Engineer has agreed to proceed with the sensitive examination. (Sensitive examination includes inspection and/or palpation of the breasts, pelvis, prostate and anorectal regions). EXAM: LMP 02/18/2017 GENERAL: pleasant, female in no apparent distress PELVIC: external genitalia normal, normal Bartholin's glands, urethra, Crosby's glands, no vulvar lesions, no cervical lesions, good vaginal support, physiologic discharge present, normal appearing perineal body and perianal region, well estrogenized, cervix surgically absent BIMANUAL: no adnexal masses, non-tender, and uterus surgically absent ASSESSMENT AND PLAN: essentially unremarkable vulvovaginal exam ? resolving no/culture taken Assessment AND Plan Vaginal itching Itching in the vaginal area culture pending ftft> 30m Lora Marquez MD [facility] 11-04-2024 History of Present illness Narrative Judah Bettencourt is a 49 year old female who [...] OB History No obstetric history on file. 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 As applicable, any other physician, advance practice provider, medical student, or other health professional student that will be observing or involved in the sensitive examination for educational or training purposes was discussed with the Patient or Authorized Facilities Engineer. The Patient or Authorized Facilities Engineer has agreed to proceed with the sensitive examination. (Sensitive examination includes inspection and/or palpation of the breasts, pelvis, prostate and anorectal regions). EXAM: LMP 02/18/2017 GENERAL: pleasant, female in no apparent distress PELVIC: external genitalia normal, normal Bartholin's glands, urethra, Crosby's glands, no vulvar lesions, no cervical lesions, [...] Lora Marquez MD documented in this encounter [facility] 05-06-2023 Discharge summary Note Date/Time May 06, 2023 9:15 am [facility] Physical [facility] [address] [place] [address] [address] [place] [address] / REHABILITATION SERVICES DISCHARGE SUMMARY MR#: [id number] Acct: [id number] Name: JUDAH BETTENCOURT Rep #: [id number] : 1975 48 From: Flavio Boyd DPT, OCS, CSCS Referring Dr.: Dr. Flavio Hudson MD Status: REG RCR Insurance: [facility] SELF PAY INSURANCE Discharge Summary D/C summary: It has been my pleasure to treat JUDAH BETTENCOURT referred by Dr. Flavio Hudson MD, with [...] please feel free to call me at [phone]. Thank you for the referral of thispatient. Sincerely, Flvaio Boyd, DPT, OCS, CSCS Balance/Gait/Functional tests Balance/Special Test Scores Oswestry Low Back Score: 0 Oswestry Neck Score: 4 <Electronically signed by Flavio Boyd DPT, OCS, CSCS> 05/06/23 0915 CC: Dr. Flavio Hudson MD ~ EBG Signed [facility] Work Phone: 1(458) 705-307103-18-2023 History of Present illness Narrative* Daniel Justice APRN.NECK BAND MAKER - 01/05/2023 10:18 AM EDT Images from the original note were not included. Subjective HPI Nontoxic-appearing female presents urgent care chief complaint blood in urine. Duration of symptoms1 day. Associated symptoms intermittent back pain for about 3 weeks. Worsened on Saturday. Noticedblood in urine yesterday. Rates pain 2 out of 10 currently. Pain has significantly improved. Deniesany other symptoms. Denies any OTC medication use. [...] Wt 97.3 kg (214 lb 6.4 oz) LMP(LMP Unknown) SpO2 97% Review of Systems Constitutional: [...] of care. This note was generated using [employer] software. It may contain errors in wording, punctuation, or spelling. Daniel Justice APRN.MISBAH documented [facility] summary Author Nicola Whalen [facility] December 12, 2023 1:17pm Note Date/Time December 12, 2023 1:17pm [facility] [address] [place] [address] [address] [place] [address] / REHABILITATION SERVICES DISCHARGE SUMMARY MR#: [id number] Acct: [id number] Name: JUDAH BETTENCOURT Rep #: [id number] : 1975 48 From: Nicola Alarcon Referring Dr.: Dr. Flavio Hudson MD Status: REG [facility] Insurance: [facility] SELF PAY INSURANCE Discharge Summary D/C summary: It has been my pleasure to treat JUDAH BETTENCOURT referred by Dr. Flavio Hudson MD, with [...] please feel free to call me at [phone]. Thank you for the referral of thispatient. Sincerely, Nicola Fraga Sipos, DPT Balance/Gait/Functional tests Balance/Special Test Scores Oswestry Neck Score: 7 Improvement % Improvement: 0 <Electronically signed by Nicola Whalen DPT> 12/12/23 1317 CC: Dr. Flavio Hudson MD ~ CLS Signed [facility] Work Phone: Evaluation noteNo assessment information available [facility] Work Phone: Evaluation note* Diagnosis Hematuria, unspecified type- Primary documented in this encounter [facility] note* Diagnosis Onset Date Resolution Status Spondylolisthesis, cervical region acute [facility] Work Phone: Evaluation note* Diagnosis Itching in the vaginal area- Primary Pruritus of genital organs Vaginal itching Pruritus of genital organs documented in this encounter [facility] note* Diagnosis Encounter for gynecological examination (general) (routine) without abnormal findings- Primary documented in this encounter [facility] Discharge instructionsAmbulatory Orders* Pain Management Location: None Selected [facility] Work Phone: Reason for referral (narrative)No reason for referral information available[facility] Work Phone: Advance Directives Advance Directive Response Recorded Date/ Time Advance Directives Yes August 28, 2016 1:34pm Living Will Yes February 19, 2018 11 :14am Power of Wastewater Treatment Plant Instructor Yes February 19, 2018 11:14am Advance Directive Response Recorded Date/ Time Advance Directives Yes August 28, 2016 12:34pm Living Will Yes February 19, 2018 10 :14am Power of Wastewater Treatment Plant Instructor Yes February 19, 2018 10:14am Advance Directive Response Recorded Date/ Time Advance Directives Yes August 28, 2016 1:34pm Living Will Yes January 22, 2023 1:18pm Power of Wastewater Treatment Plant Instructor Yes January 22 1:18pm Advance Directive Response Recorded Date/ Time Name of Medical Power of Wastewater Treatment Plant Instructor January 22, 2023 1:18pm Advance Directives Yes August 28, 2016 1:34pm Living Will Yes January 22, 2023 1:18pm Power of Wastewater Treatment Plant Instructor Yes January 22 1:18pm Advance Directive Response Recorded Date/ Time Advance Directives Yes August 28, 2016 12:34pm Living Will Yes January 22, 2023 12:18pm Power of Wastewater Treatment Plant Instructor Yes January 22 12:18pm Advance Directive Response Recorded Date/ Time Advance Directives Yes August 28, 2016 1:34pm Chief Complaint and Reason for Visit Chief [...] RX HERE Chief Complaint SCREENING/E ORDERS D R HUDSON Chief Complaint CERVICALGIA/R SHOULD ER PAIN/TRIGGER POINT RX HERE Chief Complaint CERVICALGIA/R SHOULD ER PAIN/TRIGGER POINT RX HERE CERVICAL RAD CERVICAL SPINE Room 3 Reason for Visit Spondylolisthesis, c ervical region Chief Complaint Admit Date SCREENING June 07, 2025 9: 53am Family History Relationship Condition Age at Onset Recorded Date/T [...] or prosecute any alcohol or drug abuse patient.[facility] HospitalIn the event this information is protected by the Federal Confidentiality of Alcohol and Drug Abuse Patient Records regulations: The Federal rules restrict any use of the information to criminally investigate or prosecute any alcohol or drug abuse patient.[facility] HospitalIn the event this information is protected by the Federal Confidentiality of Alcohol and Drug Abuse Patient Records regulations: The Federal rules restrict any use of the information to criminally investigate or prosecute any alcohol or drug abuse patient.[facility] Reason for Visit (unrecogniz ed section and content) Reason Comments Hematuria Pt reported mid back pain x4 days. Reason Comments Vaginal Problem Burning, itching, re dness Reason Comments [facility] Teams (unrecognized sec tion and content) [...] Hudson MD Primary Care Provider, Attending P romyron Active Team Status: Inactive Member Role Status [...] Hudson MD Primary Care Provider, Referring P raul Active Dr. Garrison Singh MD Attending Provider Active Team Status: Inactive Member Role Status Dates Dr. Flavio Hudson MD Primary Care Provider Active Dr. Bob Barnes MD Attending Provider Active Team Status: Inactive Member Role Status Dates Dr. Flavio Hudson MD Primary Care Provider Active Start: March 30, 2025 End: March 30, 2025 Dr. Flavio Hudson MD Attending Provider Active St art: March 30, 2025 End: March 30, 2025 Dr. Flavio Hudson MD Referring Provider Active St art: March 30, 2025 End: March 30, 2025 Team Status: Active Member Role/Relationship Status Dates Dr. Flavio Hudson MD Primary Care Provider Active Team Status: Inactive Member Role/Relationship Status Dates Dr. Flavio Hudson MD Primary Care Provider Active Start: March 30, 2025 End: March 30, 2025 Dr. Flavio Hudson MD Attending Provider Active St art: March 30, 2025 End: March 30, 2025 Dr. Flavio Hudson MD Referring Provider Active St art: March 30, 2025 End: March 30, 2025 Team Status: Inactive Member Role/Relationship Status Dates Dr. Flavio Hudson MD Primary Care Provider Active Start: April 20, 2025 Dr. Nirmala Barrios MD Attending Provider Active Start: April 20, 2025 Team Status: Inactive Member Role/Relationship Status Dates Dr. Flavio Hudson MD Primary Care Provider Active Start: June 07, 2025 End: June 07, 2025 Dr. Flavio Hudson MD Attending Provider Active St art: June 07, 2025 End: June 07, 2025 Dr. Flavio Hudson MD Referring Provider Active St art: June 07, 2025 End: June 07, 2025 INFORMATION SOURCE (unrecogn ized section and content) DATE CREATED AUTHOR 05/21/2025 [facility] DATE CREATED AUTHOR 'S ORGANIZ ATION 06/08/2025 [facility] FOR RECORDS PERTAINING TO PATIENTS [...] BE BASED ON THE PRIMARY CLINICAL RECORDS. [facility] provides no warranty or guarantee of the accuracy or completeness of information in this document.
[2025-10-15 13:50] LABS: Anion Gap 11 (7-18); BUN 15 mg/dL (4-19); BUN/Creat Ratio 17.1 RATIO (10-20); Calcium,Total 10.1 mg/dL (7.6-11.0); Carbon Dioxide 24.7 mmol/L (20.0-29.0); Chloride 103 mmol/L (96-106); Glucose 100 mg/dL (70-99); Potassium 4.1 mmol/L (3.5-5.1)
== END | disposition home or self-care (01) ==
LOC: MFPLAB 11:33
PROVIDERS: PCP Family Medicine; Visit Provider Family Medicine
DX: I10 Essential (primary) hypertension (principal)
CPT/HCPCS: 36415; 80048